=== PATIENT | female | born 1940 ===

== ENCOUNTER 2019-10-30 05:12 | Emergency (ER) | payer OTHER ==
--- OUTSIDE RECORDS SUMMARY | 2019-10-30 05:13 | XMS REPORT ---
:1940 Author Organization [facility] t Address [address] Singh [address] [place] [id number] Care Team Providers Name Role Phone Unavailable Unavailable Unavailable Problems This patient has no known problems. Allergies, Adverse Reactions, Alerts This patient has no known allergies or adverse reactions. Medications This patient has no known medications.
[2019-10-30 05:58] LABS: Basophils % 0.7 % (0-1.3); Lymphocytes % 19.4 % (15.3-44.8); MPV 9.1 fL (7.6-11.3); RBC Red Blood Cell Count 3.18 M/uL (3.86-4.86)
[2019-10-30] MEDS ORDERED: ALTEPLASE 100 ML IV ONE (06:03)
[2019-10-30] MEDS ORDERED: NA CHLORIDE 0.9% 50 ML IV ONE (06:03)
[2019-10-30 06:11] LABS: Protime INR 1.29
--- NOTE | 2019-10-30 06:14 | ER ---
Nurse's Notes [facility] Name: Ivis Lee Age: 79 yrs Sex: Female : 1940 Arrival Date: 10/30/2019 Time: 05:13 Bed 20 Private MD: Diagnosis: Cerebral infarction;Aphasia;Aphasia following cerebral infarction;Atrial fibrillation and flutter;Dementia in other diseases classified elsewhere;Anemia, unspecified;Hypothyroidism, unspecified Presentation: 10/29 05:13 Chief complaint: EMS states: they were called out for unwitnessed fall and right facial mg2 droop. the nurse at the [facility] found her on the floor \T\ 0400 while doing her rounds. she was seen normal \T\ 0300. Her EKG was Afib RVR 140 HR. Coronavirus screen: Proceed with normal triage. Patient denies a cough. Patient denies shortness of breath or difficulty breathing. Patient denies measured and/or subjective temperature greater than 100.4F prior to today's visit. Patient denies travel on a cruise ship or to a country the [facility] currently lists as an affected area. Patient denies contact with known and/or suspected case of COVID-19. Ebola Screen: No symptoms or risks identified at this time. An acute neurological deficit is present. Initial Sepsis Screen: Does the patient meet any 2 criteria? Does the patient have a suspected source of infection? No. Patient's initial sepsis screen is negative. Risk Assessment: Do you want to hurt yourself or someone else? Patient reports no desire to harm self or others. Onset of symptoms was October 30, 2019 at 04:00. 05:13 Method Of Arrival: EMS: [facility] mg2 05:13 Acuity: JORGE A 2 mg2 Triage Assessment: 06:30 General: Appears in no apparent distress. comfortable, Behavior is calm, cooperative. mg2 Pain: Denies pain. 06:46 The onset of the patients symptoms was October 30, 2019 at 03:00. Neuro: Reports pt bb unable to report. Stroke Activation: Symptom onset < 3 hours Physician: Stroke Attending; Name: ; Notified At: ; Arrived At: Physician: Chief Stroke Resident; Name: ; Notified At: ; Arrived At: Physician: Stroke Resident; Name: ; Notified At: ; Arrived At: Physician: ED Attending; Name: ; Notified At: ; Arrived At: Physician: ED Resident; Name: ; Notified At: ; Arrived At: Historical: - Allergies: 05:55 Codeine; rr5 - Home Meds: 05:55 Aspirin Oral [Active]; Depakote Oral [Active]; galantamine oral oral [Active]; rr5 ipratropium-albuterol inhalation Inhl [Active]; levothyroxine oral [Active]; Myrbetriq oral oral [Active]; Symbicort inhalation inhalation [Active]; - PMHx: 05:55 Dementia; Alzheimers; Hypothyroidism; frequency of micturition; iron deficiency; rr5 disorder of adrenal gland; polyphagia; COPD; - Immunization history:: Flu vaccine is up to date. - Family history:: not pertinent. - Social history:: Smoking status: . Screenin:53 Abuse screen: Denies threats or abuse. Denies injuries from another. Nutritional mg2 screening: No deficits noted. Tuberculosis screening: No symptoms or risk factors identified. Fall Risk IV access (20 points). 06:00 The patient failed the bedside swallow screening. The patient will be kept NPO until bb cleared by Speech Therapy or Physician. Provider notified of bedside swallow screening results: Winston Dove MD. Assessment: 05:15 VAN Scoring: Arm Drift: Minor drift Visual Disturbance: No visual disturbance noted. mg2 Aphasia: Expressive aphasia noted. Provider notified of +VAN scoring. Neglect: Patient is noted to be ignoring one of side of their body. Provider notified of +VAN scoring. left side of the body. 05:15 Reassessment: code stroke called. mg2 05:17 Reassessment: patient sent to ct scan. mg2 05:30 General: Appears in no apparent distress. comfortable, Behavior is calm, cooperative. mg2 Pain: Denies pain. Neuro: Level of Consciousness is awake, alert, Oriented to n/a - history of Alzheimers. Cardiovascular: Capillary refill < 3 seconds Patient's skin is warm and dry. Rhythm is atrial fibrillation with rapid ventricular response. Respiratory: Airway is patent Respiratory effort is even, unlabored, Respiratory pattern is regular, symmetrical. GI: No signs and/or symptoms were reported involving the gastrointestinal system. : No signs and/or symptoms were reported regarding the genitourinary system. EENT: No signs and/or symptoms were reported regarding the EENT system. Derm: Skin is intact, is healthy with good turgor. Musculoskeletal: Circulation, motion, and sensation intact. Capillary refill < 3 seconds. 05:54 Reassessment: notified pt's son Maykel John [phone] of pt's condition and discussed bb administration of TPA for suspected stroke with discussion of possible side effects of TPA including increased bleeding, with the possibility of . Maykel John gave verbalized understanding of the risks and hazards discussed and gave verbal permission to administer TPA to patient. Consent form signed and initialed by this RN. 06:02 Reassessment: CXR done at bedside. mg2 06:03 T-PA (Activase) Screening: Indications: Definite evidence of stroke, ischemic, embolic, bb or hypertensive: Yes. Treatment will start within 4.5 hours onset of symptoms: Yes. No evidence of intracranial hemorrhage or CT of head and no evidence of peripheral hemorrhage or recent CVA: Yes. Consent for thrombolytic therapy: Yes. 06:10 The patient has not been NPO before screening. The patient is alert, and able to follow mg2 commands. The patient exhibits slurred or garbled speech. Provider notified of the indication for Speech Therapy consult. The patient is exhibiting difficulty speaking. pt has past hx of CVA with dysphagia The patient is able to swallow own secretions with no drooling or need for suction. pt failed due to dysphagia pt failed due to dysphagia The patient failed the bedside swallow screening. The patient will be kept NPO until cleared by Speech Therapy or Physician. Provider notified of bedside swallow screening results: Winston Dove MD. 06:20 Reassessment: left side weakness improved. Patient states symptoms have improved. mg2 06:41 Reassessment: instructed pt's son Maykel John via telephone conversation of pt's transfer bb to [facility] he verbalized understanding of and agrees to plan of care. 06:42 Reassessment: pt resting quietly, resp unlabored, IV site intact, patent, TPA infusing, bb [facility] at bedside for transport of pt to [facility]. 07:41 Reassessment: patient transferred to [facility] with IV on, patient in good condition, mg2 neurodeficits improved. Vital Signs: 05:13 BP 124 / 86; Resp 18; Temp 98.5; mg2 05:54 BP 124 / 86; Pulse 130; Resp 18; Pulse Ox 100% on R/A; mg2 06:00 Weight 51.4 kg; mg2 06:10 BP 110 / 63; Pulse 124; Resp 19 S; Pulse Ox 98% on R/A; bb 06:15 BP 109 / 78; Pulse 127; Resp 18 S; Pulse Ox 96% on R/A; bb 06:30 BP 91 / 76; Pulse 127; Resp 20 S; Pulse Ox 94% on R/A; bb 06:39 BP 107 / 66; Pulse 116; Resp 20 S; Pulse Ox 95% on R/A; bb 06:56 BP 116 / 76; Pulse 126; Resp 20 S; Temp 97.1(TE); Pulse Ox 97% on R/A; bb 07:05 BP 126 / 70; Pulse 103; Resp 18; Temp 97.1; Pulse Ox 96% on R/A; mg2 NIH Stroke Scale Scores: 06:45 NIHSS Score: 5 ruth 10/30 04:52 NIHSS Score: 7 mg2 ED Course: 10/29 05:13 Patient arrived in ED. ds1 05:14 Winston Dove MD is Attending Physician. ruth 05:40 Ct Stroke Brain Wo Cont In Process Unspecified. EDMS 05:46 Ady Rogers, WINSOME is Primary Nurse. mg2 05:48 Initial lab(s) drawn, by laborer fryer farm, sent to lab. mg2 05:50 EKG done, by technology applications engineer. reviewed by Winston Dove MD. mg2 05:53 Triage completed. mg2 05:53 Arm band placed on. mg2 05:54 No provider procedures requiring assistance completed. Maintain EMS IV. Dressing mg2 intact. Good blood return noted. Site clean \T\ dry. Gauge \T\ site: 20 \T\ LAC. 06:02 XRAY Chest (1 view) In Process Unspecified. EDMS 07:21 Patient has correct armband on for positive identification. mg2 07:21 Patient transferred, IV remains in place. mg2 Administered Medications: 06:09 Drug: ACTIvase {Co-Signature: rr5 (Abdon Tejeda RN).} Route: IV Thrombolytics; Rate: mg2 calculated rate; Infused Over: 60 mins; 07:18 Follow up: Response: No adverse reaction mg2 06:45 Drug: Pepcid 20 mg Route: IVP; Site: left antecubital; mg2 07:19 Follow up: Response: No adverse reaction mg2 06:50 Drug: NS 0.9% 500 ml Route: IV; Rate: bolus; Site: left antecubital; mg2 07:20 Follow up: Response: No adverse reaction; IV Status: Completed infusion; IV Intake: mg2 500ml 06:50 Drug: Digoxin 0.25 mg Route: IVP; Site: left antecubital; mg2 07:18 Follow up: Response: No adverse reaction mg2 06:55 Drug: foLIC Acid 1 mg Route: IVPB; Site: left antecubital; mg2 07:20 Follow up: Response: No adverse reaction; IV Status: Completed infusion mg2 06:55 Drug: Lopressor 2.5 mg Route: IVP; Site: left antecubital; mg2 07:19 Follow up: Response: No adverse reaction mg2 07:00 Drug: Lopressor 2.5 mg Route: IVP; Site: left antecubital; mg2 07:19 Follow up: Response: No adverse reaction mg2 07:17 Not Given (Physician Discretion): NS 0.9% 1000 ml IV at 125 ml/hr continuous mg2 Point of Care Testing: Blood Glucose: 06:04 Blood Glucose: 73 mg/dL; mg2 Ranges: Intake: 07:20 IV: 500ml; Total: 500ml. mg2 Outcome: 06:13 ER care complete, transfer ordered by . ruth 07:22 Transferred by ground EMS to [facility], Transfer form completed. mg2 07:22 Condition: stable 07:22 Instructed on the need for transfer, Demonstrated understanding of instructions. 07:41 Patient left the ED. rr5 NIH Stroke Scale - NIH Stroke Score Date: 10/30/2019 Time: 06:45 Total Score = 5 1a. Level of Consciousness (LOC) - 0(Alert) 1b. Level of Consciousness (LOC) (Year \T\ Age) - 0(Both) 1c. LOC Commands (Open \T\ Closes Eyes/Civil Transportation Engineer) - 0(Both) 2. Best Gaze (Lateral Gaze Paresis) - 0(Normal) 3. Visual Field Loss - 0(No visual loss) 4. Facial Palsy - 2(Partial paralysis) 5a. Left Arm: Motor (10-second hold) - 0(No drift) 5b. Right Arm: Motor (10-second hold) - 0(No drift) 6a. Left Leg: Motor (5-second hold - always test supine) - 0(No drift) 6b. Right Leg: Motor (5-second hold - always test supine) - 0(No drift) 7. Limb Ataxia (finger/nose \T\ heel/quiroz - test with eyes open) - 1(Present in one limb) 8. Sensory Loss (pinprick arms/legs/face) - 0(Normal) 9. Best Language: Aphasia (description/naming/reading) - 1(Mild to moderate aphasia) 10. Dysarthria (speech clarity - read or repeat words) - 1(Mild to Moderate) 11. Extinction and Inattention (visual/tactile/auditory/spatial/personal) - 0(No abnormality) Initials: ruth NIH Stroke Scale - NIH Stroke Score Date: 10/31/2019 Time: 04:52 Total Score = 7 1a. Level of Consciousness (LOC) - 0(Alert) 1b. Level of Consciousness (LOC) (Year \T\ Age) - 0(Both) 1c. LOC Commands (Open \T\ Closes Eyes/Civil Transportation Engineer) - 0(Both) 2. Best Gaze (Lateral Gaze Paresis) - 0(Normal) 3. Visual Field Loss - 0(No visual loss) 4. Facial Palsy - 2(Partial paralysis) 5a. Left Arm: Motor (10-second hold) - 1(Drift) 5b. Right Arm: Motor (10-second hold) - 0(No drift) 6a. Left Leg: Motor (5-second hold - always test supine) - 1(Drift) 6b. Right Leg: Motor (5-second hold - always test supine) - 0(No drift) 7. Limb Ataxia (finger/nose \T\ heel/quiroz - test with eyes open) - 1(Present in one limb) 8. Sensory Loss (pinprick arms/legs/face) - 1(Mild to moderate loss) 9. Best Language: Aphasia (description/naming/reading) - 0(No aphasia) 10. Dysarthria (speech clarity - read or repeat words) - 1(Mild to Moderate) 11. Extinction and Inattention (visual/tactile/auditory/spatial/personal) - 0(No abnormality) Initials: mg2 Signatures: Dispatcher [employer] Winston Friedman MD MD cha Sanford, Demi ds1 Patience Ambriz RN RN bb Ady Rogers RN RN mg2 Abdon Tejeda RN RN rr5 Abdon Tejeda RN rr5 Corrections: (The following items were deleted from the chart) 07:30 07:22 VAN Scoring: Arm Drift: Minor drift mg2 [facility] 10/30 04:18 10/29 06:44 The patient has not been NPO before screening. The patient is mg2 alert, and able to follow commands. The patient exhibits slurred or garbled speech. Provider notified of the indication for Speech Therapy consult. The patient is exhibiting difficulty speaking. pt has past hx of CVA with dysphagia The patient is able to swallow own secretions with no drooling or need for suction. pt failed due to dysphagia pt failed due to dysphagia The patient failed the bedside swallow screening. The patient will be kept NPO until cleared by Speech Therapy or Physician. bb 10/30 04:18 10/29 06:44 Provider notified of bedside swallow screening results: Winston Dove MD rr5 10/30 04:26 10/29 05:55 VAN Scoring: Arm Drift: Minor drift Visual Disturbance: No visual mg2 disturbance noted. Aphasia: Expressive aphasia noted. Provider notified of +VAN scoring. Neglect: Patient is noted to be ignoring one of side of their body. Provider notified of +VAN scoring. left side of the body rr5 10/30 04:38 10/29 07:42 Reassessment: patient transferred to [facility] with IV on, patient mg2 in good condition, neurodeficits improved. mg2 10/30 04:52 10/29 07:22 NIHSS Score: 9 mg2 mg2 10/30 04:52 10/29 06:00 NIHSS Score: 8 mg2 mg2 10/30 04:52 10/29 05:30 NIHSS Score: 8 mg2 mg2
--- NOTE | 2019-10-30 06:14 | EDPHYS ---
Physician Documentation [facility] Name: Ivis Lee Age: 79 yrs Sex: Female : 1940 Arrival Date: 10/30/2019 Time: 05:13 Bed 20 Private MD: KACEY Physician Winston Dove HPI: 10/29 05:55 This 79 yrs old Unknown Female presents to ER via EMS with complaints of Facial Droop. [facility] 05:55 The patient presents to the emergency department with weakness of the right side of the ruth face, that is moderate, a speech or higher order brain function problem, aphasia, difficulty standing, the patient cannot stand, difficult walking, the patient cannot walk. Onset: The symptoms/episode began/occurred at 03:00. Context: occurred at a senior care or assisted living facility, occurred while the patient was at rest. Associated signs and symptoms: Pertinent positives: dizziness. Severity of symptoms: At their worst the symptoms were mild in the emergency department the symptoms are unchanged. Patient's baseline: Neuro: alert and fully oriented. Current symptoms: Currently, the patient is not experiencing any symptoms. The patient has not experienced similar symptoms in the past. Historical: - Allergies: 05:55 Codeine; rr5 - Home Meds: 05:55 Aspirin Oral [Active]; Depakote Oral [Active]; galantamine oral oral [Active]; rr5 ipratropium-albuterol inhalation Inhl [Active]; levothyroxine oral [Active]; Myrbetriq oral oral [Active]; Symbicort inhalation inhalation [Active]; - PMHx: 05:55 Dementia; Alzheimers; Hypothyroidism; frequency of micturition; iron deficiency; rr5 disorder of adrenal gland; polyphagia; COPD; - Immunization history:: Flu vaccine is up to date. - Family history:: not pertinent. - Social history:: Smoking status: . ROS: 05:55 Constitutional: Negative for fever, chills, and weight loss, Eyes: Negative for injury, ruth pain, redness, and discharge, ENT: Negative for injury, pain, and discharge, Neck: Negative for injury, pain, and swelling, Respiratory: Negative for shortness of breath, cough, wheezing, and pleuritic chest pain, Abdomen/GI: Negative for abdominal pain, nausea, vomiting, diarrhea, and constipation, Back: Negative for injury and pain, : Negative for injury, bleeding, discharge, and swelling, MS/Extremity: Negative for injury and deformity, Skin: Negative for injury, rash, and discoloration, Psych: Negative for depression, anxiety, suicide ideation, homicidal ideation, and hallucinations, Allergy/Immunology: Negative for hives, rash, and allergies, Endocrine: Negative for neck swelling, polydipsia, polyuria, polyphagia, and marked weight changes, Hematologic/Lymphatic: Negative for swollen nodes, abnormal bleeding, and unusual bruising. 05:55 Cardiovascular: Positive for palpitations. 05:55 Neuro: Positive for speech changes, weakness, of the right cheek and right jaw. Exam: 06:03 Constitutional: This is a well developed, well nourished patient who is awake, alert, ruth and in no acute distress. Eyes: Pupils equal round and reactive to light, extra-ocular motions intact. Lids and lashes normal. Conjunctiva and sclera are non-icteric and not injected. Cornea within normal limits. Periorbital areas with no swelling, redness, or edema. ENT: Nares patent. No nasal discharge, no septal abnormalities noted. Tympanic membranes are normal and external auditory canals are clear. Oropharynx with no redness, swelling, or masses, exudates, or evidence of obstruction, uvula midline. Mucous membranes moist. Neck: Trachea midline, no thyromegaly or masses palpated, and no cervical lymphadenopathy. Supple, full range of motion without nuchal rigidity, or vertebral point tenderness. No Meningismus. Chest/axilla: Normal chest wall appearance and motion. Nontender with no deformity. No lesions are appreciated. Respiratory: Lungs have equal breath sounds bilaterally, clear to auscultation and percussion. No rales, rhonchi or wheezes noted. No increased work of breathing, no retractions or nasal flaring. Abdomen/GI: Soft, non-tender, with normal bowel sounds. No distension or tympany. No guarding or rebound. No evidence of tenderness throughout. Back: No spinal tenderness. No costovertebral tenderness. Full range of motion. Female : Normal external genitalia. Skin: Warm, dry with normal turgor. Normal color with no rashes, no lesions, and no evidence of cellulitis. MS/ Extremity: Pulses equal, no cyanosis. Neurovascular intact. Full, normal range of motion. Neuro: Awake and alert, GCS 15, oriented to person, place, time, and situation. Cranial nerves II-XII grossly intact. Motor strength 5/5 in all extremities. Sensory grossly intact. Cerebellar exam normal. Normal gait. Psych: Awake, alert, with orientation to person, place and time. Behavior, mood, and affect are within normal limits. 06:03 Head/face: Noted is right facial weakness, forehead sparred. 06:03 Cardiovascular: Rate: tachycardic, Rhythm: irregularly irregular, Pulses: Pulses are 4+ in bilateral radial, brachial, femoral, popliteal, posterior tibial and and dorsalis pedis arteries.. Heart sounds: normal, Edema: is not appreciated, JVD: is not appreciated. 06:45 ECG was reviewed by the Attending Physician. [facility] Vital Signs: 05:13 BP 124 / 86; Resp 18; Temp 98.5; mg2 05:54 BP 124 / 86; Pulse 130; Resp 18; Pulse Ox 100% on R/A; mg2 06:00 Weight 51.4 kg; mg2 06:10 BP 110 / 63; Pulse 124; Resp 19 S; Pulse Ox 98% on R/A; bb 06:15 BP 109 / 78; Pulse 127; Resp 18 S; Pulse Ox 96% on R/A; bb 06:30 BP 91 / 76; Pulse 127; Resp 20 S; Pulse Ox 94% on R/A; bb 06:39 BP 107 / 66; Pulse 116; Resp 20 S; Pulse Ox 95% on R/A; bb 06:56 BP 116 / 76; Pulse 126; Resp 20 S; Temp 97.1(TE); Pulse Ox 97% on R/A; bb 07:05 BP 126 / 70; Pulse 103; Resp 18; Temp 97.1; Pulse Ox 96% on R/A; mg2 NIH Stroke Scale Scores: 06:45 NIHSS Score: 5 ruth 10/30 04:52 NIHSS Score: 7 mg2 MDM: 10/29 05:14 Patient medically screened. ruth 06:03 Data reviewed: vital signs, nurses notes, lab test result(s), EKG, radiologic studies, ruth CT scan, plain films. 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 Test interpretation: by ED physician or midlevel provider: ECG, plain radiologic studies. ED course: pt last nl at 300 am, on floor at 4am, right face weakness, both right and left sides weak and patient is aphasic, dw dr Youssef ct neg and AFib RVR his thoughts were yes tPA, call to [facility] dr ibarra agrees tPA, will accept pt. dw son and he want tPA if no contraindication, explained risk. 06:50 Physician consultation:. [facility] 07:11 Counseling: I had a detailed discussion with the patient and/or guardian regarding: the [facility] historical points, exam findings, and any diagnostic results supporting the discharge/admit diagnosis, lab results, radiology results, the need to transfer to another facility, for higher level of care, [facility] does not immediately have the required specialist. Response to treatment: the patient's symptoms have mildly improved after treatment. 10/29 05:48 Order name: Basic Metabolic Panel [facility] 10/29 05:48 Order name: CBC with Diff; Complete Time: 06:24 [facility] 10/29 06:37 Interpretation: Abnormal. [facility] 10/29 05:48 Order name: LFT's [facility] 10/29 05:48 Order name: Magnesium [facility] 10/29 05:48 Order name: NT PRO-BNP [facility] 10/29 05:48 Order name: PT-INR; Complete Time: 06:24 [facility] 10/29 05:32 Order name: Ct Stroke Brain Wo Cont [facility] 10/29 05:48 Order name: Troponin (emerg Dept Use Only) [facility] 10/29 05:48 Order name: XRAY Chest (1 view) [facility] 10/29 05:50 Order name: TSH [facility] 10/29 06:04 Order name: Glucose, Ancillary Testing; Complete Time: 06:24 [facility] 10/29 06:50 Order name: T4 Free [facility] 10/29 05:48 Order name: EKG; Complete Time: 05:50 [facility] 10/29 05:48 Order name: Cardiac monitoring; Complete Time: 07:17 [facility] 10/29 05:48 Order name: EKG - Nurse/Tech; Complete Time: 07:17 ruth 10/29 05:48 Order name: IV Saline Lock; Complete Time: 07:17 ruth 10/29 05:48 Order name: Labs collected and sent; Complete Time: 07:17 [facility] 10/29 05:48 Order name: O2 Per Protocol; Complete Time: [facility] 10/29 05:48 Order name: O2 Sat Monitoring; Complete Time: : [facility] EC:45 Rate is 126 beats/min. Rhythm is irregularly irregular. QRS [place] is Normal. VT interval ruth is normal. QRS interval is normal. QT interval is normal. No Q waves. T waves are Normal. No ST changes noted. Clinical impression: Atrial Fibrillation. Interpreted by me. Reviewed by me. Administered Medications: 06:09 Drug: ACTIvase {Co-Signature: rr5 (Abdon Tejeda RN).} Route: IV Thrombolytics; Rate: mg2 calculated rate; Infused Over: 60 mins; 07:18 Follow up: Response: No adverse reaction mg2 06:45 Drug: Pepcid 20 mg Route: IVP; Site: left antecubital; mg2 07:19 Follow up: Response: No adverse reaction mg2 06:50 Drug: NS 0.9% 500 ml Route: IV; Rate: bolus; Site: left antecubital; mg2 07:20 Follow up: Response: No adverse reaction; IV Status: Completed infusion; IV Intake: mg2 500ml 06:50 Drug: Digoxin 0.25 mg Route: IVP; Site: left antecubital; mg2 07:18 Follow up: Response: No adverse reaction mg2 06:55 Drug: foLIC Acid 1 mg Route: IVPB; Site: left antecubital; mg2 07:20 Follow up: Response: No adverse reaction; IV Status: Completed infusion mg2 06:55 Drug: Lopressor 2.5 mg Route: IVP; Site: left antecubital; mg2 07:19 Follow up: Response: No adverse reaction mg2 07:00 Drug: Lopressor 2.5 mg Route: IVP; Site: left antecubital; mg2 07:19 Follow up: Response: No adverse reaction mg2 07:17 Not Given (Physician Discretion): NS 0.9% 1000 ml IV at 125 ml/hr continuous mg2 Point of Care Testing: Blood Glucose: 06:04 Blood Glucose: 73 mg/dL; mg2 Ranges: Critical Glucose Levels:Adult <50 mg/dl or >400 mg/dl <40 mg/dl or >180 mg/dl Disposition: 10/30/19 06:13 Transfer ordered to [facility]. Diagnosis are Cerebral infarction, Aphasia, Aphasia following cerebral infarction, Atrial fibrillation and flutter, Dementia in other diseases classified elsewhere, Anemia, unspecified, Hypothyroidism, unspecified. - Reason for transfer: Higher level of care. - Accepting physician is to [facility] , [facility] dr ibarra. - Condition is Serious. - Problem is new. - Symptoms are unchanged. Critical care time excluding procedures: 07:07 Critical care time: Bedside Care: 20 minutes, Consultation: 15 minutes, Family ruth Intervention: 10 minutes. Total time: 45 minutes NIH Stroke Scale - NIH Stroke Score Date: 10/30/2019 Time: 06:45 Total Score = 5 1a. Level of Consciousness (LOC) - 0(Alert) 1b. Level of Consciousness (LOC) (Year \T\ Age) - 0(Both) 1c. LOC Commands (Open \T\ Closes Eyes/Tire Fabricator) - 0(Both) 2. Best Gaze (Lateral Gaze Paresis) - 0(Normal) 3. Visual Field Loss - 0(No visual loss) 4. Facial Palsy - 2(Partial paralysis) 5a. Left Arm: Motor (10-second hold) - 0(No drift) 5b. Right Arm: Motor (10-second hold) - 0(No drift) 6a. Left Leg: Motor (5-second hold - always test supine) - 0(No drift) 6b. Right Leg: Motor (5-second hold - always test supine) - 0(No drift) 7. Limb Ataxia (finger/nose \T\ heel/quiroz - test with eyes open) - 1(Present in one limb) 8. Sensory Loss (pinprick arms/legs/face) - 0(Normal) 9. Best Language: Aphasia (description/naming/reading) - 1(Mild to moderate aphasia) 10. Dysarthria (speech clarity - read or repeat words) - 1(Mild to Moderate) 11. Extinction and Inattention (visual/tactile/auditory/spatial/personal) - 0(No abnormality) Initials: ruth NIH Stroke Scale - NIH Stroke Score Date: 10/31/2019 Time: 04:52 Total Score = 7 1a. Level of Consciousness (LOC) - 0(Alert) 1b. Level of Consciousness (LOC) (Year \T\ Age) - 0(Both) 1c. LOC Commands (Open \T\ Closes Eyes/Tire Fabricator) - 0(Both) 2. Best Gaze (Lateral Gaze Paresis) - 0(Normal) 3. Visual Field Loss - 0(No visual loss) 4. Facial Palsy - 2(Partial paralysis) 5a. Left Arm: Motor (10-second hold) - 1(Drift) 5b. Right Arm: Motor (10-second hold) - 0(No drift) 6a. Left Leg: Motor (5-second hold - always test supine) - 1(Drift) 6b. Right Leg: Motor (5-second hold - always test supine) - 0(No drift) 7. Limb Ataxia (finger/nose \T\ heel/quiroz - test with eyes open) - 1(Present in one limb) 8. Sensory Loss (pinprick arms/legs/face) - 1(Mild to moderate loss) 9. Best Language: Aphasia (description/naming/reading) - 0(No aphasia) 10. Dysarthria (speech clarity - read or repeat words) - 1(Mild to Moderate) 11. Extinction and Inattention (visual/tactile/auditory/spatial/personal) - 0(No abnormality) Initials: mg2 Signatures: Dispatcher [employer] Winston Friedman MD MD cha Gardose, Michele, RN RN mg2 Abdon Tejeda RN RN rr5 Abdon Tejeda RN rr5 Corrections: (The following items were deleted from the chart) 06:37 06:13 10/30/2019 06:13 Transfer ordered to [facility]. Diagnosis is Cerebral infarction; Aphasia; Aphasia following cerebral infarction; Atrial fibrillation and flutter; Dementia in other diseases classified elsewhere. Reason for transfer: Higher level of care. Accepting physician is to [facility] dr ibarra. Condition is Serious. Problem is new. Symptoms are unchanged. [facility] 06:50 06:37 10/30/2019 06:13 Transfer ordered to [facility]. Diagnosis is Cerebral infarction; Aphasia; Aphasia following cerebral infarction; Atrial fibrillation and flutter; Dementia in other diseases classified elsewhere; Anemia, unspecified. Reason for transfer: Higher level of care. Accepting physician is to [facility] , [facility] dr ibarra. Condition is Serious. Problem is new. Symptoms are unchanged. [facility] 07:41 06:50 10/30/2019 06:13 Transfer ordered to [address] Diagnosis is Cerebral infarction; Aphasia; Aphasia following cerebral infarction; Atrial fibrillation and flutter; Dementia in other diseases classified elsewhere; Anemia, unspecified; Hypothyroidism, unspecified. Reason for transfer: Higher level of care. Accepting physician is to [facility] ibarra. Condition is Serious. Problem is new. Symptoms are unchanged. ruth
[2019-10-30 06:28] LABS: ALT/SGPT 10 U/L (12-78); AST/SGOT 10 U/L (15-37); Albumin 2.2 g/dL (3.4-5.0); Alkaline Phosphatase 45 U/L (45-117); BUN Blood Urea Nitrogen 30 mg/dL (7-18); Bicarbonate 25 mmol/L (21-32); Bilirubin Direct < 0.1 mg/dL (0-0.2); Bilirubin Total 0.3 mg/dL (0.2-1.0); Glucose Level 88 mg/dL (74-106); Magnesium 2.1 mg/dL (1.8-2.4); NT PRO-BNP 9851 pg/mL (<450); Potassium 4.7 mmol/L (3.5-5.1); Protein, Total 8.5 g/dL (6.4-8.2); Sodium Level 139 mmol/L (136-145); Troponin (Emerg Dept Use Only) < 0.02 ng/mL (0.0-0.045)
[2019-10-30] MEDS ORDERED: DIGOXIN 0.25 MG/ML AMP ONE (06:52)
[2019-10-30] MEDS ORDERED: NA CHLORIDE 0.9% 500 ML ONE (06:53)
[2019-10-30] MEDS ORDERED: METOPROLOL TARTRATE 5 MG/5 ML INJ IV ONE (06:53)
[2019-10-30] MEDS ORDERED: FAMOTIDINE 20 MG/2 ML VIAL IV ONE (06:53)
[2019-10-30] MEDS ORDERED: FOLIC ACID 5 MG/ML VIAL ONE (06:56)
[2019-10-30 08:06] VITALS: TEMP 97.1
[2019-10-30 08:08] VITALS: BP 126/70; O2SAT 96
--- NOTE | 2019-10-30 08:29 | RAD REPORT ---
EXAM DESCRIPTION: RAD - Chest Single View - 10/30/2019 6:02 am CLINICAL HISTORY: COUGH, fall COMPARISON: None TECHNIQUE: AP portable chest image was obtained 10/30/2019 6:02 am . FINDINGS: No focal mass or consolidation. Interstitial markings are prominent on this baseline study . Minimal alveolar opacities are present. Heart size is upper normal. Vasculature within normal limit s. No measurable pleural effusion and no pneumothorax. No acute bony abnormality seen. No acute aorti c findings suspected. IMPRESSION: No focal mass or consolidations seen. Increased interstitial opacification present. This is a baseline study therefore interstitial edema o r viral infiltrates are not excluded. Follow-up imaging could be obtained if the patient symptoms may be related to infectious process.
--- NOTE | 2019-10-30 12:36 | RAD REPORT ---
EXAM DESCRIPTION: CT - Ct Stroke Brain Wo Cont - 10/30/2019 6:31 am CLINICAL HISTORY: LEFT SIDED FACIAL DROOP TECHNIQUE: Multiple axial CT images of the brain were performed followed by sagittal and coronal rec onstructed images. The CT study is performed according to ALARA (as low as reasonably achievable) or ALARA/IMAGE GENTLY, with automatic adjustment of mA and/or kV according to patient size. Performed on: 10/30/2019 at 5:30 AM COMPARISON: None. FINDINGS: There is no evidence of mass, acute mass effect or midline shift. There are no acute extra-axial flui d collections. There is no evidence of acute intracranial hemorrhage. There is no evidence of a hyp erdense MCA. The cerebral sulci and ventricles are prominent consistent with moderate cerebral volume loss. There are scattered areas of decreased attenuation within the subcortical and periventricular white m atter most consistent with chronic moderate microangiopathy. There is right frontal lobe encephalomal acia consistent with an old infarct. There is no significant mucosal thickening of the paranasal sinuses. The mastoid air cells are clear. The orbital contents are grossly unremarkable. No acute osseous abnormalities are identified. No focal soft tissue abnormalities are identified. IMPRESSION: 1. There is no evidence of acute intracranial pathology. 2. Moderate cerebral atrophy with findings compatible with chronic microangiopathy and old right fron alan lobe infarct. These critical findings were discussed with Dr. Dove on 10/30/2019 at 5:52 AM central time Electronically signed by: Mily Quinonez DO 10/30/2019 5:53 AM CDT Due to temporary technical issues with the PACS/Fluency reporting system, reports are being signed by the in house radiologist as a courtesy to ensure prompt reporting. The interpreting radiologist is f ully responsible for the content of the report.
--- NOTE | 2019-10-31 06:49 | EKG ---
Test Date: 2019-10-30 Test Time: 05:50:31 Coffee Maker: MAGGIE MEASUREMENT RESULTS: Intervals: Rate: 126 ID: QRSD: [id number] QT: 332 QTc: 480 [place]: P: ID: QRS: [id number] T: -66 INTERPRETIVE STATEMENTS: Atrial fibrillation with rapid ventricular response Septal infarct, age undetermined Abnormal ECG No previous ECG available for comparison Electronically Signed On 10-31-19 06:48:38 CDT by Amos Rouse
== END 2019-10-30 07:41 | disposition short-term general hospital (02) ==
LOC: ER 05:12
DX: I63.9 Cerebral infarction, unspecified (principal); R47.01 Aphasia; I69.320 Aphasia following cerebral infarction; R29.705 NIHSS score 5; E03.9 Hypothyroidism, unspecified; D64.9 Anemia, unspecified; I48.91 Unspecified atrial fibrillation; I48.92 Unspecified atrial flutter; G30.9 Alzheimer's disease, unspecified; F02.80 Dementia in other diseases classified elsewhere, unspecified severity, without behavioral disturbance, psychotic disturbance, mood disturbance, and anxiety; Z79.82 Long term (current) use of aspirin; Z88.5 Allergy status to narcotic agent
CPT/HCPCS: 96365; 92977; 93005; 85025; 80048; 36415; 83735; 85610; 82947; 80076; 84443; 84484; 84439; 83880; 70450; 71045; 96375; 99285; J2997; J1160; J7040

== ENCOUNTER 2019-12-26 19:58 | Inpatient (IN) | payer OTHER ==
--- OUTSIDE RECORDS SUMMARY | 2019-12-26 20:01 | XMS REPORT | Clinical Summary ---
:1940 Author Organization [facility] Address [address] [place] [address] Care Team Providers Name Role Phone Tay Napoleon Primary Care Provider Allergies No Known Allergies Medications Medication Sig Dispensed Refills Start Date End Date Status levothyroxine Take 75 mcg by 0 A ctive (SYNTHROID, mouth Every LEVOTHROID) 75 MCG morning on an tablet empty stomach. divalproex Take 250 mg by 0 Acti ve (DEPAKOTE) 250 MG EC mouth 3 (three) tablet times daily. galantamine Take 12 mg by 0 Acti ve (RAZADYNE) 12 MG mouth 2 (two) tablet times daily. ipratropium-albutero Take 3 mLs by 0 Active L (DUO-NEB) 0.5 mg-3 nebulization every mg(2.5 mg base)/3 mL 6 (six) hours as nebulizer solution needed for Wheezing. budesonide-formotero Inhale 2 puffs by 0 Active L (SYMBICORT) mouth via inhaler 160-4.5 2 (two) times mcg/actuation daily. inhaler aspirin 81 MG EC Take 81 mg by 0 Active tablet mouth daily. mirabegron Take 25 mg by 0 06/14/2018 Acti ve (MYRBETRIQ) 25 mg mouth nightly. Tb24 ER tablet apixaban (ELIQUIS) Take 1 tablet (2.5 60 tablet 0 11/04/2019 0 12/04/2019 2.5 mg Tab tablet mg total) by mouth 2 (two) times daily for 30 days. atorvastatin Take 1 tablet (80 30 tablet 0 11/04/2019 12/04/19 20 (LIPITOR) 80 MG mg total) by mouth tablet nightly for 30 days. carvediloL (COREG) Take 1 tablet 60 tablet 0 11/04/20192019 6.25 MG tablet (6.25 mg total) by mouth 2 (two) times daily for 30 days. lisinopriL Take 1 tablet (2.5 30 tablet 0 11/05/2019 0 (PRINIVIL,ZESTRIL) mg total) by mouth 2.5 MG tablet daily for 30 days. Active Problems Problem Noted Date Acute ischemic stroke 10/31/2019 Essential hypertension 10/31/2019 Alzheimer disease 10/31/2019 Hypothyroid 10/31/2019 Hypertensive emergency 10/31/2019 Encounters Date Type Specialty Care Team Description 10/31/2019 Orders Only General Internal Medicine 10/31/2019 Telephone Intensive Care Heather Torres RN 10/30/2019 - Hospital Encounter General Internal Araseli Harman MD Acute ischemic stroke (HCC) (Primary Dx) ; 11/05/2019 Medicine Darien Calvillo, Alzheimer's dementia without behavioral disturbance, unspecified timing of dementia onset (HCC); Essential hypertension; Jennifer Blanchard Persistent atri al fibrillation (HCC); MD Blayne Hypertensive emergency; Segundo, Hypothyroidism, unspecified type Subhash Lopez MD 10/30/2019 Travel after 12/25/2018 Social History Tobacco Use Types Packs/Day Years Used Date Never Smoker Smokeless Tobacco: Never Used Tobacco Cessation: Counseling Given: No Alcohol Use Drinks/Week oz/Week Comments No Alcohol Habits Answer Date Recorded How often do you have a drink containing alcohol? Never 10/31/2019 How many drinks containing alcohol do you have on a typical Not asked day when you are drinking? How often do you have six or more drinks on one occasion? No t asked Sex Assigned at Date Recorded Not on file Job Start Date Occupation Industry Not on file Not on file Not on file Travel History Travel Start Travel End No recent travel history available. Last Filed Vital Signs Vital Sign Reading Time Taken Blood Pressure 124/56 11/05/2019 11:07 AM CDT Pulse 84 11/05/2019 11:07 AM CDT Temperature 36.4 C (97.5 F) 11/05/2019 11:07 AM CDT Respiratory Rate 17 11/05/2019 11:07 AM CDT Oxygen Saturation 98% 11/05/2019 11:07 AM CDT Inhaled Oxygen Concentration 21% 11/04/2019 8:32 PM CDT Weight 50.8 kg (112 lb) 10/30/2019 8:34 AM CDT Height 165.1 cm (5' 5") 10/30/2019 8:34 AM CDT Body Mass Index 18.64 10/30/2019 8:34 AM CDT Plan of Treatment Not on file Procedures Procedure Name Priority Date/Time Associated Comments Diagnosis RHYTHM STRIP - SCAN 11/07/2019 12:30 PM CDT MAGNESIUM Routine 11/05/2019 3:22 Results for this AM CDT procedure are i n the results section. BASIC METABOLIC PANEL Routine 11/05/2019 3:22 Re sults for this (7) AM CDT procedure are i n the results section. ECHOCARDIOGRAM REPORT - 11/04/2019 9:20 SCAN PM CDT LIMITED 2D Routine 11/04/2019 1:48 Results for this ECHOCARDIOGRAM PM CDT procedure are in the results section. CBC W/PLT COUNT & AUTO Routine 11/04/2019 5:36 R esults for this DIFFERENTIAL AM CDT procedure are i n the results section. MAGNESIUM Routine 11/04/2019 5:36 Results for this AM CDT procedure are i n the results section. BASIC METABOLIC PANEL Routine 11/04/2019 5:36 Re sults for this (7) AM CDT procedure are i n the results section. CBC W/PLT COUNT & AUTO Routine 11/04/2019 5:36 R esults for this DIFFERENTIAL AM CDT procedure are i n the results section. CBC W/PLT COUNT & AUTO Routine 11/03/2019 5:16 R esults for this DIFFERENTIAL AM CDT procedure are i n the results section. MAGNESIUM Routine 11/03/2019 5:16 Results for this AM CDT procedure are i n the results section. BASIC METABOLIC PANEL Routine 11/03/2019 5:16 Re sults for this (7) AM CDT procedure are i n the results section. CBC W/PLT COUNT & AUTO Routine 11/03/2019 5:16 R esults for this DIFFERENTIAL AM CDT procedure are i n the results section. ECHOCARDIOGRAM REPORT - 11/02/2019 9:21 SCAN PM CDT REPORT OF PROCEDURE - 11/02/2019 12:32 ENDOSCOPY SCAN PM CDT TRANSESOPHAGEAL ECHO Routine 11/02/2019 11:26 Res ults for this AM CDT procedure are i n the results section. CBC W/PLT COUNT & AUTO Routine 11/02/2019 4:59 R esults for this DIFFERENTIAL AM CDT procedure are i n the results section. MAGNESIUM Routine 11/02/2019 4:59 Results for this AM CDT procedure are i n the results section. BASIC METABOLIC PANEL Routine 11/02/2019 4:59 Re sults for this (7) AM CDT procedure are i n the results section. CBC W/PLT COUNT & AUTO Routine 11/02/2019 4:59 R esults for this DIFFERENTIAL AM CDT procedure are i n the results section. SARS-COV2/RT-PCR ([facility] & STAT 11/01/2019 10:37 Results for this REF LABS) AM CDT procedure are i n the results section. CBC W/PLT COUNT & AUTO Routine 11/01/2019 9:43 R esults for this DIFFERENTIAL AM CDT procedure are i n the results section. MAGNESIUM Routine 11/01/2019 9:43 Results for this AM CDT procedure are i n the results section. BASIC METABOLIC PANEL Routine 11/01/2019 9:43 Re sults for this (7) AM CDT procedure are i n the results section. CBC W/PLT COUNT & AUTO Routine 11/01/2019 9:43 R esults for this DIFFERENTIAL AM CDT procedure are i n the results section. CARDIOVERSION Routine 10/31/2019 9:58 PM CDT ECHOCARDIOGRAM REPORT - 10/31/2019 9:21 SCAN PM CDT ECG 12-LEAD Routine 10/31/2019 5:09 PM CDT Procedure Note - Interface, External Ris In - 10/31/2019 5:22 PM CDT Ventricular Rate 120 BPM Atrial Rate 127 BPM QRS Duration 78 ms Q-T Interval 342 ms QTC Calculation(Bazett) 483 ms R [place] -19 degrees T [place] -66 degrees Atrial fibrillation with rap id ventricular response Septal infarct , age undeter mined Abnormal ECG No previous ECGs available ECG 12-LEAD Routine 10/31/2019 5:09 PM CDT Resu lts for this procedure are i n the results section . XR SHOULDER 1 VIEW RIGHT Routine 10/31/2019 12:56 PM CDT Results for this procedure are i n the results section . 2D ECHO W/ DOPPLER Routine 10/31/2019 9:58 AM CDT Results for this (CW/PW/COLOR) procedure are in the results section . MR BRAIN WITHOUT IV Routine 10/31/2019 6:51 AM CDT Results for this CONTRAST procedure are i n the results section . BASIC METABOLIC PANEL (7) Routine 10/31/2019 4:55 AM CDT Results for this procedure are i n the results section . LIPID PANEL Routine 10/31/2019 4:55 AM CDT Resu lts for this procedure are i n the results section . CBC W/PLT COUNT & AUTO Routine 10/31/2019 3:33 AM CDT Results for this DIFFERENTIAL procedure are i n the results section . CBC W/PLT COUNT & AUTO Routine 10/31/2019 3:33 AM CDT Results for this DIFFERENTIAL procedure are i n the results section . T4, FREE Routine 10/30/2019 10:45 AM CDT Resu lts for this procedure are i n the results section . VITAMIN B12 AND FOLATE Routine 10/30/2019 10:45 AM CDT Results for this procedure are i n the results section . TSH/FREE T4 IF INDICATED Routine 10/30/2019 10:45 AM CDT Results for this procedure are i n the results section . CT CEREBRAL PERFUSION STAT 10/30/2019 10:39 AM CDT Results for this ANALYSIS procedure are i n the results section . CTA BRAIN STAT 10/30/2019 10:39 AM CDT Resu lts for this procedure are i n the results section . CT/CTA CAROTID STAT 10/30/2019 10:39 AM CDT Re sults for this procedure are i n the results section . RPR Routine 10/30/2019 9:48 AM CDT Resu lts for this procedure are i n the results section . HEMOGLOBIN A1C Routine 10/30/2019 9:48 AM CDT Re sults for this procedure are i n the results section . CBC W/PLT COUNT & AUTO STAT 10/30/2019 8:45 AM CDT Results for this DIFFERENTIAL procedure are i n the results section . MAGNESIUM STAT 10/30/2019 8:45 AM CDT Resu lts for this procedure are i n the results section . CREATINE KINASE (CK) STAT 10/30/2019 8:45 AM CDT Results for this procedure are i n the results section . PT/APTT STAT 10/30/2019 8:45 AM CDT Resu lts for this procedure are i n the results section . BASIC METABOLIC PANEL (7) STAT 10/30/2019 8:45 AM CDT Results for this procedure are i n the results section . CBC W/PLT COUNT & AUTO STAT 10/30/2019 8:45 AM CDT Results for this DIFFERENTIAL procedure are i n the results section . after 12/25/2018 Results RHYTHM STRIP - SCAN (11/07/2019 12:30 PM CDT) Narrative Performed At This result has an attachment that is no t available. Magnesium (11/05/2019 3:22 AM CDT)Only the most recent of6 resultswithin the time period is included. Magnesium 1.8 1.6 - 2.6 mg/dL [facility] Specimen Blood Narrative Performed At Photoengraving Supervisor ID - REDDY Hua [facility] Performing Organization Address City/State/Zipcode Phone Number [facility] [address] [place] [address] CENTER Basic Metabolic Panel (11/05/2019 3:22 AM CDT)Only the most recent of7 results within the time period is included. Sodium 137 136 - 145 meq/L [facility] Potassium 4.0 3.5 - 5.1 meq/L [facility] Chloride 107 98 - 107 meq/L [facility] CO2 24 22 - 29 meq/L [facility] BUN 15 7 - 21 mg/dL [facility] Creatinine 0.97 0.57 - 1.25 mg/dL [facility] Glucose 84 70 - 105 mg/dL [facility] Calcium 8.1 (L) 8.4 - 10.2 mg/dL [facility] EGFR 55Comment: ESTIMATED GFR IS mL/min/1.73 sq m [facility] NOT ACCURATE CREATININE [facility] CLEARANCE IN PREDICTING GLOMERULAR FILTRATION RATE. ESTIMATED GFR IS NOT APPLICABLE FOR DIALYSIS PATIENTS. Specimen Blood Narrative Performed At Photoengraving Supervisor ID - PIAYA L [facility] Performing Organization Address City/State/Zipcode Phone Number [facility] [address] [place] [address] CENTER ECHOCARDIOGRAM REPORT - SCAN (11/04/2019 9:20 PM CDT) Narrative Performed At This result has an attachment that is no t available. Limited 2D Echocardiogram (11/04/2019 1:48 PM CDT) Ejection Fraction [facility] ECHO HEAR TLAB MKCKESSON CPA Specimen Narrative Performed At Transthoracic Echocardiography Report (T TE) [facility] ECHO HEARTLAB [facility] Demographics Patient NameHERNDON,Date of Study11/04/2019 ANJELICA Female Visit [id number] Room [id number] Number Date of 1Referring Leonor Dennis MD Age 79 year(s)Engagement Director Michelle Craig Electric Meter Setter Calvin Horne Interpreting Physician LELIA Humphrey Procedure Type of Study TTE procedure:LIMITED 2D ECHOCARDIOGRAM (Routine) Indications:Sustained or non sustained Afib, SVT or VT. Clinical History HGB 8.9 HCT 29.2 % Height: 65 inches Weight: 50.8 kg (112 lbs) BSA: 1.55 m^2 BMI: 18.64 kg/m^2 HR: 88 bpm BP: 120/73 mmHg Summary Limited study to assess LV function. The left ventricle is chamber size (by vol index) is normal (female - LVED vol - 29-61ml/m2). All of the LV segments are severely hypokinetic . Estimated LVEF by qualitative assessment is severely reduced (25-29%) . RV chamber size is mildly enlarged . Global RV systolic function is mildly depressed . Unable to estimate peak systolic PA pressure; inadequate TR velocity signal. Signature Findings Left Ventricle The left ventricle is chamber size (by vol index) is normal (female - LVED vol - 29-61ml/m2). Normal LV wall thickness. All of the LV segments a re se verely hypokinetic . Estimated LVEF by qu alitative assessment is severely reduced (25-29%) . Left AtriumLA size is mildly enlarged (35-41 ml/m2) . Right VentricleRV chamber size is mildly enlarged . Gl obal RV systolic function is mildly depr essed . Right Atrium Right atrium severely dilated. Aortic Valve Mild AoV cusp thickening. Mitral Valve Mild MV leaflet thickening. Tricuspid ValveA trace of tricuspid regurgitation. Un able to estimate peak systolic PA pressu re; in adequate TR velocity signal. Pulmonic Valve Normal PV structure and function by limited views an d Doppler. AortaAortic root size (SInus of Valsalva diameter) i s no rmal . PericardiumNo evidence of pericardial effusion. IVC/SVC/PA/PV/PleuralThe estimated RA pressure by IVC dynamics 5-10mmHg . Chambers/Structures Left Atrium LA Dimension: 3.43 cmLA Area: 19.23 cm^2 LA Volume: 59.42 ml LA Vol. Index: 38 ml/m^2 Left Ventricle LVIDd: 4.78 cm LV Septum Diastolic: 0.85 cm LV PW Diastolic: 1 cm LVEDV Guadarrama's:94.47 ml LVESV Guadarrama's:68.73 ml LVEF Guadarrama's: 27.3 %LVEDV I: 61 ml/m^2 LVESVI: 44 ml/m^2 Aorta Ao Root S of Josephine.: 3 cm Doppler/Quantitative Measurements LVOT Peak Velocity: 0.7 m/s Peak Gradient: 1.95 mmHg Mean Velocity: 0.4 m/s Mean Gradient: 0.82 mmHg LVOT VTI: 12.77 cm Procedure Note Interface, External Ris In - 11/04/2019 4:21 PM CDT Transthoracic Echocardiography Report (TTE) Demographics Patient Name CLARITA, Date of Study 11/04/2019 ANJELICA Gender Female Visit Number [id number] Race Room [facility] Dax9 Number Date of 1940 [facility] Physician Raghu Dennis MD Age 79 year(s) Sonogra pher Abed Rafa Electric Meter Setter Calvin Horne Interpr eting Duke Montemayor MD Procedure Type of Study TTE procedure:LIMITED 2D ECHO CARDIOGRAM (Routine) Indications:Sustained or non sustained A fib, SVT or VT. Clinical History HGB 8.9 HCT 29.2 % Height: 65 inches Weight: 50.8 kg (112 l bs) BSA: 1.55 m^2 BMI: 18.64 kg/m^2 HR: 88 bpm BP: 120/73 mmHg Summary Limited study to assess LV function. The left ventricle is chamber size (by vol index) is normal (female - LVED vol - 29-61ml/m2). All of the LV segmen ts are severely hypokinetic . Estimated LVEF by qualitative assessmen t is severely reduced (25-29%) . RV chamber size is mildly enlarged . Gl obal RV systolic function is mildly depressed . Unable to estimate peak systolic PA pre ssure; inadequate TR velocity signal. Signature Findings Left Ventricle The left ventric le is chamber size (by vol index) is normal (femal e - LVED vol - 29-61ml/m2). Normal LV wall thicknes s. All of the LV segments are severely hypokin etic . Estimated LVEF by qualitative asse ssment is severely reduced (25-29%) . Left Atrium LA size is mildl y enlarged (35-41 ml/m2) . Right Ventricle RV chamber size is mildly enlarged . Global RV systol ic function is mildly depressed . Right Atrium Right atrium sev erely dilated. Aortic Valve Mild AoV cusp th ickening. Mitral Valve Mild MV leaflet thickening. Tricuspid Valve A trace of tricu spid regurgitation. Unable to estima te peak systolic PA pressure; inadequate TR ve locity signal. Pulmonic Valve Normal PV struct ure and function by limited views and Doppler. Aorta Aortic root size (SInus of Valsalva diameter) is normal . Pericardium No evidence of p ericardial effusion. IVC/SVC/PA/PV/Pleural The estimated RA pressure by IVC dynamics 5-10mmHg . Chambers/Structures Left Atrium LA Dimension: 3.43 cm LA Area: 19.23 cm^2 LA Volume: 59.42 ml LA Vol. Index: 38 ml/m^2 Left Ventricle LVIDd: 4.78 cm LV Septum Diastolic: 0.85 cm LV PW Diastolic: 1 cm LVEDV Guadarrama's:94.47 ml LVESV Guadarrama's:68.73 ml LVEF Guadarrama's: 27.3 % LVEDVI: 61 ml/m^2 LVESVI: 44 ml/m^2 Aorta Ao Root S of Josephine.: 3 cm Doppler/Quantitative Measurements LVOT Peak Velocity: 0.7 m/s Peak Gradient: 1.95 mmHg Mean Velocity: 0.4 m/s Mean Gradient: 0.82 mmHg LVOT VTI: 12.77 cm Performing Organization Address City/State/Zipcode Phone Number [facility] ECHO HEARTLAB MKCKESSON [facility] CBC with platelet count + automated diff (11/04/2019 5:36 AM CDT)Only the most recent of6 resultswithin the time period is included. WBC 7.1 3.5 - 10.5 K/L [facility] RBC 3.33 (L) 3.93 - 5.22 M/L [facility] Hemoglobin 8.9 (L) 11.2 - 15.7 GM/DL [facility] Hematocrit 29.2 (L) 34.1 - 44.9 % [facility] MCV 87.7 79.4 - 94.[address] [facility] MCH 26.7 25.6 - 32.[address] [facility] MCHC 30.5 (L) 32.2 - 35.5 GM/DL [facility] RDW 17.3 (H) 11.7 - 14.4 % [facility] Platelets 203 150 - 450 K/CU MM [facility] MPV 10.6 9.4 - 12.[address] [facility] nRBC 0 0 - 0 /[address] [facility] % Neutros 55 % [facility] % Lymphs 20 % [facility] % Monos 11 % [facility] % Eos 13 % [facility] % Baso 1 % [facility] # Neutros 3.89 1.56 - 6.13 K/L [facility] # Lymphs 1.43 1.18 - 3.74 K/L [facility] # Monos 0.80 (H) 0.24 - 0.36 K/L [facility] # Eos 0.90 (H) 0.04 - 0.36 K/L [facility] # Baso 0.04 0.01 - 0.08 K/L [facility] Immature Granulocytes-Relative 0 0 - 1 % C HI [facility] Specimen Blood Performing Organization Address City/State/Zipcode Phone Number [facility] [address] [place] [address] CENTER ECHOCARDIOGRAM REPORT - SCAN (11/02/2019 9:21 PM CDT) Narrative Performed At This result has an attachment that is no t available. EKG-SCANNED (11/02/2019 12:32 PM CDT) Narrative Performed At This result has an attachment that is no t available. Transesophageal echo (11/02/2019 11:26 AM CDT) Ejection Fraction [facility] ECHO HEAR [facility] Specimen Narrative Performed At Transesophageal Echocardiography Report (JULIO CESAR) [facility] ECHO HEARTLAB MKCK[facility]ON [facility] Demographics Patient Name ANJELICA LEE Date of Study 11/02/2019 [id number] Gender Female Visit Number [id number] RaceCauc [id number] Room Number [id number] Number Date of Birth1940 Referring Physician Age79 year(s) Engagement Director Vivian Stauffer ms RDCS Soledad Cordero MD Physician Fellow John Vila Procedure Type of Study JULIO CESAR procedure:TRANSESOPHAGEAL ECHO (Routine) Indications:Suspected cardiac source of emboli. Clinical History COPD, ALZHEIMER'S, HYPOTHYROID, CVA Height: 65 inches Weight: 50.8 kg (112 lbs) BSA: 1.55 m^2 BMI: 18.64 kg/m^2 HR: 91 bpm BP: 108/55 mmHg JULIO CESAR Performed By: the attending and the fellow Procedure Informed Consent JULIO CESAR procedure notes Moderate sedation by performing MD using 1 mg IV versed and 25 mcg IV fentanyl. . Type of Anesthesia: See below Summary 1. Normal left ventricular chamber size. Normal wall thickness. Global LV systolic function moderately to severely reduced . 2. There is spontaneous echo contrast (smoke) with some partially formed echo material (sludge) in the left atrial appendage. LA is enlarged but severity assessment is unreliable due to known JULIO CESAR sector size limitation. 3. RV chamber size appears normal by limited views . Global RV systolic function is depressed . 4. No significant valvular abnormality No cardioversion performed due to sludge in LA appendage, recent CVA and rate controlled atrial fibrillation. Signature Findings Rhythm/BP Atrial fibrillation with controlled ventricular response. LeftNormal left ventricular chamber size. Normal wall thickness. Ventricle Global LV systolic function moderately to severely reduced . Left Atrium There is spontaneous echo contrast (smoke) with some partially formed echo material (sludge) in the left atrial appendage. LA is enlarged but severity assessment is unreliable due to known JULIO CESAR sector size limitation. Left atrial appendage velocities are reduced. Right RV chamber size appears normal by limited views . Ventricle Global RV systolic function is depressed . Atrial Septum The interatrial septum is adequately visualized. Normal interatrial septum by available views. No interatria l shunt by color Doppler. Aortic ValveNormal AoV structure and function. Trileaflet valve that opens well. Mitral ValveMild MV leaflet thicken ing. Mild mitral regurgitation. Tricuspid TV structure is malaika l. Valve A trace of tricuspid regurgitation. Unable to estimate peak systolic PA pressure; inadequate TR velocity si gnal. PulmonicA trace of pulmonary regurgitation. Valve Normal PV structu re. Aorta Aortic root size (SInus of Valsalva diameter) is normal . Proximal ascending aorta size is normal . Grade 2 plaque (extensive intimal thickening) in the descending thoracic aorta . Transverse aorta was not well visualized. Pericardium No significant pericardial effusion is visualized. Procedure Note Interface, External Ris In - 11/02/2019 1:55 PM CDT Transesophageal Echocardiography Report (JULIO CESAR) Demographics Patient Name ANJELICA LEE Date of Study 11/02/2019 Gende r Female Visit Number [id number] Race Room Number [id number] Number Date of 1940 Refer ring Physician Age 79 year(s) Sonog maryann Quezada [facility] Inter kimo Cordero MD Physi david Fellow John LEMONS Procedure Type of Study JULIO CESAR procedure:TRANSESOPHAGEAL ECHO (Routine) Indications:Suspected cardiac source of emboli. Clinical History COPD, ALZHEIMER'S, HYPOTHYROID, CVA Height: 65 inches Weight: 50.8 kg (112 l bs) BSA: 1.55 m^2 BMI: 18.64 kg/m^2 HR: 91 bpm BP: 108/55 mmHg JULIO CESAR Performed By: the attending and the fellow Procedure Informed Consent JULIO CESAR procedure notes Moderate sedation by performing MD ramila bergeron 1 mg IV versed and 25 mcg IV fentanyl. . Type of Anesthesia: See below Summary 1. Normal left ventricular chamber size . Normal wall thickness. Global LV systolic function moderately to severel y reduced . 2. There is spontaneous echo contrast ( smoke) with some partially formed echo material (sludge) in the left atri al appendage. LA is enlarged but severity assessment is unreliable due t o known JULIO CESAR sector size limitation. 3. RV chamber size appears normal by li mited views . Global RV systolic function is depressed . 4. No significant valvular abnormality No cardioversion performed due to sludg e in LA appendage, recent CVA and rate controlled atrial fibrillation. Signature Findings Rhythm/BP Atrial fibrillation with controlled ventricular response. Left Normal left ventricular c hamber size. Normal wall thickness. Ventricle Global LV systolic functi on moderately to severely reduced . Left Atrium There is spontaneous echo contrast (smoke) with some partially formed echo mat erial (sludge) in the left atrial appendage. LA is enlarged but severi ty assessment is unreliable due to known JULIO CESAR sector size sykes itation. Left atrial appendage fabienne ocities are reduced. Right RV chamber size appears n ormal by limited views . Ventricle Global RV systolic functi on is depressed . Atrial Septum The interatrial septum is adequately visualized. Normal interatrial septum by available views. No interatrial shunt by color Doppler. Aortic Valve Normal AoV structure and function. Trileaflet valve that opens well. Mitral Valve Mild MV leaflet thickenin g. Mild mitral regurgitation . Tricuspid TV structure is normal. Valve A trace of tricuspid regu rgitation. Unable to estimate peak s ystolic PA pressure; inadequate TR velocity signal. Pulmonic A trace of pulmonary regu rgitation. Valve Normal PV structure. Aorta Aortic root size (SInus o f Valsalva diameter) is normal . Proximal ascending aorta size is normal . Grade 2 plaque (extensive intimal thickening) in the descending thoracic aorta . Transverse aorta was not well visualized. Pericardium No significant pericardia l effusion is visualized. Performing Organization Address City/State/Zipcode Phone Number [facility] SARS-CoV2/RT-PCR ([facility]) (11/01/2019 10:37 AM CDT) SARS-COV2/RT-PCR Negative Not Detected, Negative [facility] SARS-COV-2 PERFORMING LAB CPL [facility] Specimen Other Performing Organization Address City/State/Zipcode Phone Number [facility] [address] [place] [address] CENTER ECHOCARDIOGRAM REPORT - SCAN (10/31/2019 9:21 PM CDT) Narrative Performed At This result has an attachment that is no t available. ECG 12 lead (10/31/2019 5:09 PM CDT) Specimen Narrative Performed At Ventricular Rate 120 BPM GE MUSE Atrial Rate 127 BPM QRS Duration 78 ms Q-T Interval 342 ms QTC Calculation(Bazett) 483 ms R [place] -19 degrees T [place] -66 degrees Atrial fibrillation with rapid ventricul ar response Septal infarct , age undetermined Nonspecific ST and T wave abnormality Abnormal ECG No previous ECGs available Confirmed by MD Mcdowell Roberto ([id number]) on 10/31 7:31:18 AM Procedure Note Interface, External Ris In - 11/01/2019 7:31 AM CDT Ventricular Rate 120 BPM Atrial Rate 127 BPM QRS Duration 78 ms Q-T Interval 342 ms QTC Calculation(Bazett) 483 ms R [place] -19 degrees T [place] -66 degrees Atrial fibrillation with rapid ventricul ar response Septal infarct , age undetermined Nonspecific ST and T wave abnormality Abnormal ECG No previous ECGs available Confirmed by MD Jeremias, Alexandru ([id number]) on 11/01/2019 7:31:18 AM Performing Organization Address City/[facility]/Zipcode Phone Number [facility] MUSE XR shoulder 1 view right (10/31/2019 12:56 PM CDT) Specimen Narrative Performed At FINAL REPORT Omnidrone TECHNIQUE: Single internal rotation view of the right shoulder dated 10/31/2019 HISTORY: Exterior bruising COMPARISON: None. FINDINGS: No acute fracture or dislocation seen in the single view provided. Hill-Sachs deformity is seen in the ace ral head. Bones are osteopenic.. Degenerative changes are se en in the acromioclavicular joint. No bone erosion or soft tissue no dule seen. No radiodense foreign body or subcutaneous emphysema. IMPRESSION: No acute fracture or dislocation in the image provided. Signed: Navneet Harden MD Report Verified Date/Time:10/31/2019 13:31:59 Reading Location: [address] Consult R eading Room Procedure Note Interface, External Ris In - 10/31/2019 1:34 PM CDT FINAL REPORT TECHNIQUE: Single internal rotation view of the right shoulder dated 10/31/2019 HISTORY: Exterior bruising COMPARISON: None. FINDINGS: No acute fracture or dislocation seen in the single view provided. Hill-Sachs deformity is seen in the ace ral head. Bones are osteopenic.. Degenerative changes are se en in the acromioclavicular joint. No bone erosion or soft tissue no dule seen. No radiodense foreign body or subcutaneous emphysema. IMPRESSION: No acute fracture or dislocation in the image provided. Signed: Navneet Harden MD Report Verified Date/Time: 10/31/2019 1 3:31:59 Reading Location: [facility] B1 [id number] Consult R eading Room Performing Organization Address City/State/Zipcode Phone Number [facility] RIS 2D Echo W/Doppler(CW/PW/Color) (10/31/2019 9:58 AM CDT) Ejection Fraction [facility]AR [facility]LAB [facility] Specimen Narrative Performed At Transthoracic Echocardiography Report (T TE) [facility] ECHO HEARTLAB [facility] Demographics Patient NameANJELICA LEE Date of Study10/31/2019 Gender Female Visit [id number] Race Zhanna ernts [id number] Number Date of 1940 ReferringArif Kimani Physician Age 79 year(s) SonographAisha perez [facility] Interpreting Katja Lynn Physician FellowPrasanna hua MD Procedure Type of Study TTE procedure:2DECHO W DOPPLER(CW/PW/COLOR) (Routine) Indications:Suspected cardiac source of emboli. Clinical History HGB 9.1 HCT 30.1 % COPD, ALZHEIMER'S, HYPOTHYROID Contrast Medium: Bubble Study. Height: 65 inches Weight: 50.8 kg (112 lbs) BSA: 1.55 m^2 BMI: 18.64 kg/m^2 HR: 104 bpm BP: 154/83 mmHg Summary 1. Normal LV chamber size. Severe global hypokinesis. Severely depressed EF (LVEF <20% qualitatively). Contrast was not used, but LV thrombus is not visualized on available images. 2. IV saline contrast injection was negative for a PFO (patent foramen ovale) at rest and post Valsalva . 3. No significant valve disease detecte d. 4. No significant pericardial effusion is visualized. Previous Study No prior studies available for comparis on. Signature Findings Left Ventricle Normal left ventricular chamber size. Normal wall th ickness. Severe global hypokinesis. Irina rely de pressed EF (LVEF <20% qualitatively). Gr luke 3 di astolic dysfunction (marked elevated LA pr essure). Left AtriumLA size is mildly enlarged . Right VentricleThe right ventricular chamber size is mildly di lated and systolic function is within no rmal li mits. Right Atrium RA size is moderately dilated. Atrial SeptumIV saline contrast injection was negative for a PF O (p atent foramen ovale) at rest and post Va lsalva . Aortic Valve The aortic valve leaflets appear mildly sclerotic. No rmal AoV function. Mitral Valve Mild MR. Normal MV structure and function. Tricuspid ValveA trace of tricuspid regurgitation. Es timated peak systolic PA pressure is 20- 25 mmHg . PericardiumNo significant pericardial effusion is visualized. IVC/SVC/PA/PV/PleuralThe estimated RA pressure by IVC dynamics 5-10mmHg . Chambers/Structures Left Atrium LA Volume: 50.22 mlLA Area: 19.1 cm^2 LA Vol. Index: 32 ml/m^2 Left Ventricle LVIDd: 5.04 cm LVEDV:12 0.41 ml LV Septum Diastolic: 0.56 cm LV PW Diastolic: 0.61 cm LVOT Diameter: 2.26 cm Doppler/Quantitative Measurements Aortic Valve Peak Velocity: 0.92 m/sMean Velocity: 0.68 m/s Peak Gradient: 3.36 mmHg Mean Gradient: 2.01 mmHg AV Area (continuity): 3.15 cm^2 AV VTI: 15.84 cm AV DVI: 0.79 LVOT Peak Velocity: 0.71 m/s Peak Gradient: 2.07 mmHg Mean Velocity: 0.5 m/sMean Gradient: 1.18 mmHg LVOT Diameter: 2.26 cmLVOT VTI: 12.46 cm LVOT Area: 4.01 cm^2LVOT SV:49.96 ml LVOT CO: 5.2 l/minLVOT CI: 3.35 l/min/m^2 Tricuspid Valve TR Velocity: 1.99 m/s TR Gradient: 15.9 mmHg Procedure Note Interface, External Ris In - 10/31/2019 4:34 PM CDT Transthoracic Echocardiography Report (TTE) Demographics Patient Name ANJELICA LEE Date o f Study 10/31/2019 Gender Female Visit Number [id number] Race Room N ganesh [id number] Number Date of 1940 Referr catrina sharma Age 79 year(s) Sonogr pankaj Quezada [facility] Interp reting Oliverio Tinajero MD Fellow Prasanna Boswell MD Procedure Type of Study TTE procedure:2DECHO W DOPPLE R(CW/PW/COLOR) (Routine) Indications:Suspected cardiac source of emboli. Clinical History HGB 9.1 HCT 30.1 % COPD, ALZHEIMER'S, HYPOTHYROID Contrast Medium: Bubble Study. Height: 65 inches Weight: 50.8 kg (112 l bs) BSA: 1.55 m^2 BMI: 18.64 kg/m^2 HR: 104 bpm BP: 154/83 mmHg Summary 1. Normal LV chamber size. Severe globa l hypokinesis. Severely depressed EF (LVEF <20% qualitatively). Contrast was not used, but LV thrombus is not visualized on available images. 2. IV saline contrast injection was neg ative for a PFO (patent foramen ovale) at rest and post Valsalva . 3. No significant valve disease detecte d. 4. No significant pericardial effusion is visualized. Previous Study No prior studies available for comparis on. Signature Findings Left Ventricle Normal left vent ricular chamber size. Normal wall thickness. Sever e global hypokinesis. Severely depressed EF (LV EF <20% qualitatively). Grade 3 diastolic dysfun ction (marked elevated LA pressure). Left Atrium LA size is mildl y enlarged . Right Ventricle The right ventri cular chamber size is mildly dilated and syst olic function is within normal limits. Right Atrium RA size is moder ately dilated. Atrial Septum IV saline contra st injection was negative for a PFO (patent foramen ovale) at rest and post Valsalva . Aortic Valve The aortic valve leaflets appear mildly sclerotic. Normal AoV funct ion. Mitral Valve Mild MR. Normal MV structure and function. Tricuspid Valve A trace of tricu spid regurgitation. Estimated peak s ystolic PA pressure is 20-25 mmHg . Pericardium No significant p ericardial effusion is visualized. IVC/SVC/PA/PV/Pleural The estimated RA pressure by IVC dynamics 5-10mmHg . Chambers/Structures Left Atrium LA Volume: 50.22 ml LA Area: 19.1 cm^2 LA Vol. Index: 32 ml/m^2 Left Ventricle LVIDd: 5.04 cm LVEDV:120.41 ml LV Septum Diastolic: 0.56 cm LV PW Diastolic: 0.61 cm LVOT Diameter: 2.26 cm Doppler/Quantitative Measurements Aortic Valve Peak Velocity: 0.92 m/s Mean Velocity: 0.68 m/s Peak Gradient: 3.36 mmHg Mean Gradient: 2.01 mmHg AV Area (continuity): 3.15 cm^2 AV VTI: 15.84 cm AV DVI: 0.79 LVOT Peak Velocity: 0.71 m/s Pea k Gradient: 2.07 mmHg Mean Velocity: 0.5 m/s Shannan n Gradient: 1.18 mmHg LVOT Diameter: 2.26 cm LVO T VTI: 12.46 cm LVOT Area: 4.01 cm^2 LVO T SV:49.96 ml LVOT CO: 5.2 l/min LVO T CI: 3.35 l/min/m^2 Tricuspid Valve TR Velocity: 1.99 m/s TR Gradient: 15.9 mmHg Performing Organization Address City/State/Zipcode Phone Number [facility] MR brain without IV contrast (10/31/2019 6:51 AM CDT) Specimen Narrative Performed At FINAL REPORT Omnidrone MRI Brain without contrast Clinical History: Stroke, follow up Technique: MRI of the brain utilizing ax ial T2, FLAIR, GRE, DWI; sagittal and coronal T1-weighted images. Comparisons: CT 10/30/2019 Findings: There is small-volume acute infarction o f the left frontal operculum and insula. There is no intracranial hem orrhage. There is a chronic infarct of the left parietal lobe. There is a chronic lacunar infarct of the right thalamus. There is moderate periventricular and subcortical white matter T2 hyperintensi ty, which is nonspecific but compatible with chronic microvascular is chemic change. There is generalized parenchymal volume loss with out hydrocephalus, midline shift, or apparent mass effect. There ar e no extra-axial fluid collections. The craniocervical junction is preserved. The major intracranial flow-voids appear patent. T here is right cataract surgery. IMPRESSION: Small acute infarction of the left front al operculum and insula, without hemorrhage. Chronic left parietal lobe infarction. Chronic lacunar infarct right thalamus. Signed: Crystal Perry MD Report Verified Date/Time:10/31/2019 07:37:08 Reading Location: [address] Procedure Note Interface, External Ris In - 10/31/2019 7:40 AM CDT FINAL REPORT MRI Brain without contrast Clinical History: Stroke, follow up Technique: MRI of the brain utilizing ax ial T2, FLAIR, GRE, DWI; sagittal and coronal T1-weighted images. Comparisons: CT 10/30/2019 Findings: There is small-volume acute infarction o f the left frontal operculum and insula. There is no intracranial hem orrhage. There is a chronic infarct of the left parietal lobe. There is a chronic lacunar infarct of the right thalamus. There is moderate periventricular and subcortical white matter T2 hyperintensi ty, which is nonspecific but compatible with chronic microvascular is chemic change. There is generalized parenchymal volume loss with out hydrocephalus, midline shift, or apparent mass effect. There ar e no extra-axial fluid collections. The craniocervical junction is preserved. The major intracranial flow-voids appear patent. T here is right cataract surgery. IMPRESSION: Small acute infarction of the left front al operculum and insula, without hemorrhage. Chronic left parietal lobe infarction. Chronic lacunar infarct right thalamus. Signed: Crystal Perry MD Report Verified Date/Time: 10/31/2019 0 7:37:08 Reading Location: [address] Room Performing Organization Address City/[facility]/Zipcode Phone Number GE RIS Fasting lipid panel (10/31/2019 4:55 AM CDT) Triglycerides 50 mg/dL [facility] Cholesterol 100 mg/dL [facility] HDL 39 mg/dL [facility] LDL Calculated 51 mg/dL [facility] Specimen Blood Narrative Performed At Triglyceride Reference Range: [facility] Low Risk <150 [id number] High Risk 200-499 Very High Risk>=500 Cholesterol Reference Range: Low Risk <200 [id number] High Risk>240 HDL Cholesterol Reference Range: Low Risk >=60 High Risk <40 LDL Cholesterol Reference Range: Optimal<100 Near [id number] Very High >=190 Photoengraving Supervisor ID - [place] Photoengraving Supervisor ID - DB Performing Organization Address [facility] Cent[facility]ode Phone Number [address] [address] CENTER Vitamin B12 and Folate (10/30/2019 10:45 AM CDT) Vitamin B12 716 213 - 816 pg/mL [facility] Folate 35.30 >=7.00 ng/mL [facility] Specimen Blood Narrative Performed At Photoengraving Supervisor ID - NTP [facility] Performing Organization Address City/[facility]/Zipcode Phone Number [place] [phone] [place] [address] CENTER TSH/Free T4 If Indicated (10/30/2019 10:45 AM CDT) TSH 7.461 (H) 0.350 - 4.940 uIU/mL [facility] Specimen Blood Narrative Performed At Photoengraving Supervisor ID - NTP [facility] Performing Organization Address [facility]/Zipcode Phone Number [place] [address] [place] [address] CENTER T4, free (10/30/2019 10:45 AM CDT) Free T4 0.74 0.70 - 1.48 ng/dL [facility] Specimen Blood Narrative Performed At Photoengraving Supervisor ID - NTP [facility] Performing Organization Address City/State/Zipcode Phone Number [facility] [address] [place] [address] [place] CTA carotid (10/30/2019 10:39 AM CDT) Specimen Narrative Performed At FINAL REPORT Omnidrone CLINICAL HISTORY: Neuro deficit, acute, stroke suspected TECHNIQUE: Initially, noncontrast head C T images were performed. Contiguous contrast-enhanced axial image s through the neck followed by axial images through the head with co davonte and sagittal reformations to assess the arterial circ ulation. 3-D reconstructions were performed using a volume rendered t echnique separately on a workstation. CT perfusion was also perfo rmed with data post processing generated by [employer] software. Th is exam was performed according to the departmental dose optim ization program which includes automated exposure control, adj ustment of the mA and/or kV according to the patient size, and/or us e of an iterative reconstruction technique. COMPARISON: None FINDINGS: There is no CT evidence of acute infarct or hemorrhage. There is periventricular and subcortical white ma tter hypodensity which is nonspecific but compatible with chronic microvascular ischemic change. There are atherosclerotic calcif ications of the intracranial circulation. There is generalized parenc hymal volume loss without hydrocephalus, midline shift, or apparen t mass effect. The CT angiogram images of the head reve al no evidence of large vessel occlusion. There is multifocal in tracranial atherosclerotic disease. No aneurysms are seen. The shawn r intradural venous sinuses are patent. There is a 70% stenosis of the proximal right internal carotid artery by NASCET criteria. There is a 50% stenosis of the proximal left internal carotid artery by NASCET criteria. 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 There is severe stenosis of the origin o f the right vertebral artery which is otherwise patent. CT perfusion data: Relative cerebral blood flow <30%: 0 cc. TMax >6s: 31 cc in the left middle cereb ral artery distribution. Mismatch volume: 31 cc Mismatch ratio: N/A There are dorsal spondylitic changes in the cervical spine. There are scattered subcentimeter lymph nodes in t he neck. There is biapical emphysematous disease. IMPRESSION: No CT evidence of acute infarct or hemor rhage.CT perfusion data as above. No evidence for a [place] large vessel occlusion. 70% stenosis proximal right internal car otid artery by NASCET criteria. 50% stenosis proximal left internal moreno tid artery by NASCET criteria. 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 The findings were discussed with the [facility] neurologist at approximately 10:50 AM. Signed: Crystal Perry MD Report Verified Date/Time:10/30/2019 11:01:04 Reading Location: [facility] C013V [facility] Room Procedure Note Interface, External Ris In - 10/30/2019 11:03 AM CDT FINAL REPORT CLINICAL HISTORY: Neuro deficit, acute, stroke suspected TECHNIQUE: Initially, noncontrast head C T images were performed. Contiguous contrast-enhanced axial image s through the neck followed by axial images through the head with co davonte and sagittal reformations to assess the arterial circ ulation. 3-D reconstructions were performed using a volume rendered t echnique separately on a workstation. CT perfusion was also perfo rmed with data post processing generated by [employer] software. Th is exam was performed according to the departmental dose optim ization program which includes automated exposure control, adj ustment of the mA and/or kV according to the patient size, and/or us e of an iterative reconstruction technique. COMPARISON: None FINDINGS: There is no CT evidence of acute infarct or hemorrhage. There is periventricular and subcortical white ma tter hypodensity which is nonspecific but compatible with chronic microvascular ischemic change. There are atherosclerotic calcif ications of the intracranial circulation. There is generalized parenc hymal volume loss without hydrocephalus, midline shift, or apparen t mass effect. The CT angiogram images of the head reve al no evidence of large vessel occlusion. There is multifocal in tracranial atherosclerotic disease. No aneurysms are seen. The shawn r intradural venous sinuses are patent. There is a 70% stenosis of the proximal right internal carotid artery by NASCET criteria. There is a 50% stenosis of the proximal left internal carotid artery by NASCET criteria. 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 There is severe stenosis of the origin o f the right vertebral artery which is otherwise patent. CT perfusion data: Relative cerebral blood flow <30%: 0 cc. TMax >6s: 31 cc in the left middle cereb ral artery distribution. Mismatch volume: 31 cc Mismatch ratio: N/A There are dorsal spondylitic changes in the cervical spine. There are scattered subcentimeter lymph nodes in t he neck. There is biapical emphysematous disease. IMPRESSION: No CT evidence of acute infarct or hemor rhage. CT perfusion data as above. No evidence for a [place] large vessel occlusion. 70% stenosis proximal right internal car otid artery by NASCET criteria. 50% stenosis proximal left internal moreno tid artery by NASCET criteria. 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 The findings were discussed with the [facility] neurologist at approximately 10:50 AM. Signed: Crystal Perry MD Report Verified Date/Time: 10/30/2019 1 1:01:04 Reading Location: [facility] C013V [facility] Performing Organization Address City/State/Zipcode Phone Number Omnidrone CT brain cerebral perfusion analysis (10/30/2019 10:39 AM CDT) Specimen Narrative Performed At FINAL REPORT Omnidrone CLINICAL HISTORY: Neuro deficit, acute, stroke suspected TECHNIQUE: Initially, noncontrast head C T images were performed. Contiguous contrast-enhanced axial image s through the neck followed by axial images through the head with co davonte and sagittal reformations to assess the arterial circ ulation. 3-D reconstructions were performed using a volume rendered t echnique separately on a workstation. CT perfusion was also perfo rmed with data post processing generated by [employer] software. Th is exam was performed according to the departmental dose optim ization program which includes automated exposure control, adj ustment of the mA and/or kV according to the patient size, and/or us e of an iterative reconstruction technique. COMPARISON: None FINDINGS: There is no CT evidence of acute infarct or hemorrhage. There is periventricular and subcortical white ma tter hypodensity which is nonspecific but compatible with chronic microvascular ischemic change. There are atherosclerotic calcif ications of the intracranial circulation. There is generalized parenc hymal volume loss without hydrocephalus, midline shift, or apparen t mass effect. The CT angiogram images of the head reve al no evidence of large vessel occlusion. There is multifocal in tracranial atherosclerotic disease. No aneurysms are seen. The shawn r intradural venous sinuses are patent. There is a 70% stenosis of the proximal right internal carotid artery by NASCET criteria. There is a 50% stenosis of the proximal left internal carotid artery by NASCET criteria. 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 There is severe stenosis of the origin o f the right vertebral artery which is otherwise patent. CT perfusion data: Relative cerebral blood flow <30%: 0 cc. TMax >6s: 31 cc in the left middle cereb ral artery distribution. Mismatch volume: 31 cc Mismatch ratio: N/A There are dorsal spondylitic changes in the cervical spine. There are scattered subcentimeter lymph nodes in t he neck. There is biapical emphysematous disease. IMPRESSION: No CT evidence of acute infarct or hemor rhage.CT perfusion data as above. No evidence for a [place] large vessel occlusion. 70% stenosis proximal right internal car otid artery by NASCET criteria. 50% stenosis proximal left internal moreno tid artery by NASCET criteria. 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 The findings were discussed with the [facility] neurologist at approximately 10:50 AM. Signed: Crystal Perry MD Report Verified Date/Time:10/30/2019 11:01:04 Reading Location: [address] Procedure Note Interface, External Ris In - 10/30/2019 11:03 AM CDT FINAL REPORT CLINICAL HISTORY: Neuro deficit, acute, stroke suspected TECHNIQUE: Initially, noncontrast head C T images were performed. Contiguous contrast-enhanced axial image s through the neck followed by axial images through the head with co davonte and sagittal reformations to assess the arterial circ ulation. 3-D reconstructions were performed using a volume rendered t echnique separately on a workstation. CT perfusion was also perfo rmed with data post processing generated by [employer] software. Th is exam was performed according to the departmental dose optim ization program which includes automated exposure control, adj ustment of the mA and/or kV according to the patient size, and/or us e of an iterative reconstruction technique. COMPARISON: None FINDINGS: There is no CT evidence of acute infarct or hemorrhage. There is periventricular and subcortical white ma tter hypodensity which is nonspecific but compatible with chronic microvascular ischemic change. There are atherosclerotic calcif ications of the intracranial circulation. There is generalized parenc hymal volume loss without hydrocephalus, midline shift, or apparen t mass effect. The CT angiogram images of the head reve al no evidence of large vessel occlusion. There is multifocal in tracranial atherosclerotic disease. No aneurysms are seen. The shawn r intradural venous sinuses are patent. There is a 70% stenosis of the proximal right internal carotid artery by NASCET criteria. There is a 50% stenosis of the proximal left internal carotid artery by NASCET criteria. 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 There is severe stenosis of the origin o f the right vertebral artery which is otherwise patent. CT perfusion data: Relative cerebral blood flow <30%: 0 cc. TMax >6s: 31 cc in the left middle cereb ral artery distribution. Mismatch volume: 31 cc Mismatch ratio: N/A There are dorsal spondylitic changes in the cervical spine. There are scattered subcentimeter lymph nodes in t he neck. There is biapical emphysematous disease. IMPRESSION: No CT evidence of acute infarct or hemor rhage. CT perfusion data as above. No evidence for a [place] large vessel occlusion. 70% stenosis proximal right internal car otid artery by NASCET criteria. 50% stenosis proximal left internal moreno tid artery by NASCET criteria. 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 The findings were discussed with the [facility] neurologist at approximately 10:50 AM. Signed: Crystal Perry MD Report Verified Date/Time: 10/30/2019 1 1:01:04 Reading Location: [facility] B1 C013V Neuro [place] ding Room Performing Organization Address City/State/Zipcode Phone Number [facility] RAVINDER CTA brain (10/30/2019 10:39 AM CDT) Specimen Narrative Performed At FINAL REPORT [facility] RAVINDER CLINICAL HISTORY: Neuro deficit, acute, stroke suspected TECHNIQUE: Initially, noncontrast head C T images were performed. Contiguous contrast-enhanced axial image s through the neck followed by axial images through the head with co davonte and sagittal reformations to assess the arterial circ ulation. 3-D reconstructions were performed using a volume rendered t echnique separately on a workstation. CT perfusion was also perfo rmed with data post processing generated by [employer] software. Th is exam was performed according to the departmental dose optim ization program which includes automated exposure control, adj ustment of the mA and/or kV according to the patient size, and/or us e of an iterative reconstruction technique. COMPARISON: None FINDINGS: There is no CT evidence of acute infarct or hemorrhage. There is periventricular and subcortical white ma tter hypodensity which is nonspecific but compatible with chronic microvascular ischemic change. There are atherosclerotic calcif ications of the intracranial circulation. There is generalized parenc hymal volume loss without hydrocephalus, midline shift, or apparen t mass effect. The CT angiogram images of the head reve al no evidence of large vessel occlusion. There is multifocal in tracranial atherosclerotic disease. No aneurysms are seen. The shawn r intradural venous sinuses are patent. There is a 70% stenosis of the proximal right internal carotid artery by NASCET criteria. There is a 50% stenosis of the proximal left internal carotid artery by NASCET criteria. 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 There is severe stenosis of the origin o f the right vertebral artery which is otherwise patent. CT perfusion data: Relative cerebral blood flow <30%: 0 cc. TMax >6s: 31 cc in the left middle cereb ral artery distribution. Mismatch volume: 31 cc Mismatch ratio: N/A There are dorsal spondylitic changes in the cervical spine. There are scattered subcentimeter lymph nodes in t he neck. There is biapical emphysematous disease. IMPRESSION: No CT evidence of acute infarct or hemor rhage.CT perfusion data as above. No evidence for a [place] large vessel occlusion. 70% stenosis proximal right internal car otid artery by NASCET criteria. 50% stenosis proximal left internal moreno tid artery by NASCET criteria. 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 The findings were discussed with the [facility] neurologist at approximately 10:50 AM. Signed: Crystal Perry MD Report Verified Date/Time:10/30/2019 11:01:04 Reading Location: [facility] C013V [facility] Room Procedure Note Interface, External Ris In - 10/30/2019 11:03 AM CDT FINAL REPORT CLINICAL HISTORY: Neuro deficit, acute, stroke suspected TECHNIQUE: Initially, noncontrast head C T images were performed. Contiguous contrast-enhanced axial image s through the neck followed by axial images through the head with co davonte and sagittal reformations to assess the arterial circ ulation. 3-D reconstructions were performed using a volume rendered t echnique separately on a workstation. CT perfusion was also perfo rmed with data post processing generated by [employer] software. Th is exam was performed according to the departmental dose optim ization program which includes automated exposure control, adj ustment of the mA and/or kV according to the patient size, and/or us e of an iterative reconstruction technique. COMPARISON: None FINDINGS: There is no CT evidence of acute infarct or hemorrhage. There is periventricular and subcortical white ma tter hypodensity which is nonspecific but compatible with chronic microvascular ischemic change. There are atherosclerotic calcif ications of the intracranial circulation. There is generalized parenc hymal volume loss without hydrocephalus, midline shift, or apparen t mass effect. The CT angiogram images of the head reve al no evidence of large vessel occlusion. There is multifocal in tracranial atherosclerotic disease. No aneurysms are seen. The shawn r intradural venous sinuses are patent. There is a 70% stenosis of the proximal right internal carotid artery by NASCET criteria. There is a 50% stenosis of the proximal left internal carotid artery by NASCET criteria. 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 There is severe stenosis of the origin o f the right vertebral artery which is otherwise patent. CT perfusion data: Relative cerebral blood flow <30%: 0 cc. TMax >6s: 31 cc in the left middle cereb ral artery distribution. Mismatch volume: 31 cc Mismatch ratio: N/A There are dorsal spondylitic changes in the cervical spine. There are scattered subcentimeter lymph nodes in t he neck. There is biapical emphysematous disease. IMPRESSION: No CT evidence of acute infarct or hemor rhage. CT perfusion data as above. No evidence for a [place] large vessel occlusion. 70% stenosis proximal right internal car otid artery by NASCET criteria. 50% stenosis proximal left internal moreno tid artery by NASCET criteria. 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 The findings were discussed with the [facility] neurologist at approximately 10:50 AM. Signed: Crystal Perry MD Report Verified Date/Time: 10/30/2019 1 1:01:04 Reading Location: [address] Performing Organization Address City/State/Zipcode Phone Number GE RIS RPR (10/30/2019 9:48 AM CDT) RPR Nonreactive Nonreactive [facility] Specimen Blood Performing Organization Address City/State/Zipcode Phone Number [address] [address] [place] Hemoglobin A1c (10/30/2019 9:48 AM CDT) Hemoglobin A1C 5.3 4.3 - 6.1 % [facility] Specimen Blood Performing Organization Address City/[facility]/Zipcode Phone Number [address] [address] [place] PT/aPTT (10/30/2019 8:45 AM CDT) Protime 16.8 (H) 11.9 - 14.2 seconds [facility] INR 1.4 <=5.9 [facility] PTT 34.2 22.5 - 36.0 seconds [facility] Specimen Blood Narrative Performed At Effective 11/29/2018: PT Reference Range [facility] Change New: 11.9-14.2Previous: 11.7-14.7 RECOMMENDED COUMADIN/WARFARIN INR THERAPY RANGES STANDARD DOSE: 2.0-3.0Includes: PROPHYLAXIS for venous thrombosis, systemic embolization; TREATMENT for venous thrombosis and/or pulmonary embolus. HIGH RISK: Target INR is 2.5-3.5 for patients wiht mechanical heart valves. Performing Organization Address City/State/Zipcode Phone Number [facility] [address] [place] [address] CENTER Creatine Kinase (CK) (10/30/2019 8:45 AM CDT) Total CK 41 29 - 200 U/L [facility] Specimen Blood Narrative Performed At Photoengraving Supervisor ID - [id number] [facility] Performing Organization Address City/State/Zipcode Phone Number [facility] [address] [place] [address] CENTER after 12/25/2018 Insurance Payer Benefit Plan / Subscriber ID Type Phone Address Group MEDICARE MEDICARE A B xxxxxxxxxxx Medicare MEDICAID - [place]ERISSA COMM STAR xxxxxxxxx Medicaid MEDICAID MGD CARE PLAN Contracted [facility] xxxxxxxx [place] [address] Advance Directives For more information, please contact:[address] [phone] Code Status Date Activated Date Inactivated Comments Full Code 10/30/2019 9:39 AM 11/05/2019 3:40 PM This code status was determined by: Patient Full Code 10/30/2019 9:39 AM 10/30/2019 9:39 AM This code status was determined by: Patient
--- OUTSIDE RECORDS SUMMARY | 2019-12-26 20:03 | XMS REPORT | Continuity of Care Document ---
:1940 Author Organization [facility] t Address [address] [place] [address] Care Team Providers Name Role Phone Napoleon Cross Primary Care Physician Araseli Harman MD Attending Clinician Darien Calvillo MD Attending Clinician Jennifer Blanchard MD Attending Clinician Segundo ROWELL I. Attending Clinician Brian SCHUMACHER Attending Clinician Unavailable KIMANI Attending Clinician Unavailable Jessica FLORENTINO Admitting Clinician Unavailable Payers Payer Name Policy Policy Number Effective Expiration Source Type Date Date MEDICAREMEDICARE A xxxxxxxxxxx [place] S t BxxxxxxxxxxxMedicare [facility] MEDICAID - MEDICAID MGD CARED xxxxxxxxx [facility] STAR [facility] - PLANxxxxxxxxxMedicaid Med ical Contracted Center CDCREVIEWCDCREVIEWxxxxxxxxPO xxxxxxxx [place] [address] [facility] Problems Condition Condition Condition Status Onset Resolution Last Treating Co mments Source Name Details Category Date Date Treatment Clinician Date Acute Acute Disease Active [facility] 10-30 [facility] - stroke stroke 00:00: Medical 00 [place] Essential Essential Disease Active [facility] hypertensi hypertensi 10-30 [facility] kes - on on 00:00: Medical 00 Center Alzheimer Alzheimer Disease Active [facility] disease disease 10-30 [facility] - 00:[facility] 00 [facility] Hypothyroi Hypothyroi Disease Active 2019- [facility] d d 10-30 [facility] - 00:: Medical 00 [place] Hypertensi Hypertensi Disease Active C HI [facility] ve ve 10-30 [facility] - emergency emergency 00:00: Medi antonio 00 Center Allergies, Adverse Reactions, Alerts This patient has no known allergies or adverse reactions. Social History Social Habit Start Date Stop Date Quantity Comments Source History SDOH Alcohol [facility] - Std Drinks [facility] History SDOH Alcohol [facility] - Binge [facility] Sex Assigned At [facility] kes - [facility] History SDOH Alcohol 2019-10-31 2019-10-31 [address] [facility] - Frequency 00:00:00 00:00:00 [facility] Smoking Status Start Date Stop Date Source Never smoker [facility] Medications Ordered Filled Start Stop Current Ordering Indication Dosage Frequency Signature Comments Components Source Medication Medication Date Date Medication? Clinician (SIG) Name Name aspirin 81 Yes 81mg QD Take [address] MG EC 11-04 by mouth [facility] - tablet 12:27: daily. [address] lisinopriL 2019- No 2.5mg QD Take [address] (PRINIVIL,Z 11-04 tablet [facility] - ESTRIL) 2.5 00:00: 23:59 (2.5 mg Me dical MG tablet 00 :00 total) by Cente r mouth daily for 30 days. apixaban 2019- No 2.5mg Q.5D Take 1 [facility] (ELIQUIS) 11-03 tablet [facility] - 2.5 mg Tab 00:00: 23:59 (2.5 mg Med ical tablet 00 :00 total) by Center mouth 2 (two) times daily for 30 days. atorvastati 2019- No 80mg QD Take [address] n (LIPITOR) 11-03 tablet (80 L ukes - 80 MG 00:00: 23:59 mg total) Medica l tablet 00 :00 by mouth Center nightly for 30 days. carvediloL 2019- No 6.25mg Q.5D Take [address] (COREG) 11-03 tablet [facility] - 6.25 MG 00:00: 23:59 (6.25 mg Medic al tablet 00 :00 total) by Center mouth 2 (two) times daily for 30 days. divalproex 2020-0 Yes 250mg Q.[id number] Take [address] (DEPAKOTE) 4-28 [id number] mg by Adenike kes - 250 MG EC 14:46: 3D mouth 3 Medic al tablet 39 (three) Center times daily. galantamine 2020-0 Yes 12mg Q.5D Take [address] (RAZADYNE) 4-28 by mouth 2 Pauline es - 12 MG 14:46: (two) Medical tablet 39 times Center daily. ipratropium 2020-0 Yes 3mL Take [address] -albuteroL 4-28 by Lumar - (DUO-NEB) 14:46: nebulizati Me dical 0.5 mg-3 39 on every 6 Cente r mg(2.5 mg (six) base)/3 mL hours as nebulizer needed for solution Wheezing. budesonide- 2020-0 Yes 2{puff} Q.5D Inhale [address] formoteroL 4-28 puffs by Sp - (SYMBICORT) 14:46: mouth via M edical 160-4.5 39 inhaler 2 Center mcg/actuati (two) on inhaler times daily. levothyroxi 2019-0 Yes 75ug Take [address] ne 4-28 mcg by Sp - (SYNTHROID, 09:41: mouth Medic al LEVOTHROID) 16 Every Center 75 MCG morning on tablet an empty stomach. mirabegron 2018- Yes 25mg QD Take [address] (MYRBETRIQ) 2-12 by mouth Adenikeke s - 25 mg Tb24 00:00: nightly. Med ical ER tablet 00 Center Vital Signs Vital Name Observation Time Observation Value Comments Source Systolic blood 2019-11-05 11:07:00 124 mm[Hg] [facility] pressure [facility] Diastolic blood 2019-11-05 11:07:00 56 mm[Hg] [facility] Heart rate 2019-11-05 11:07:00 84 /min [facility] es [facility] Body temperature 2019-11-05 11:07:00 36.39 Angi [facility] Respiratory rate 2019-11-05 11:07:00 17 /min [facility] Oxygen saturation in 2019-11-05 11:07:00 98 /min [facility] Arterial blood by Medical Ce nter Pulse oximetry Body height 2019-10-30 08:34:00 165.1 cm [facility] Body weight Measured 2019-10-30 08:34:00 50.803 kg [facility] BMI 2019-10-30 08:34:00 18.64 kg/m2 [facility] Procedures Procedure Date / Time Performing Clinician Source Performed RHYTHM STRIP - SCAN 2019-11-07 12:30:42 Provider, [facility] BASIC METABOLIC PANEL (7) 2019-11-05 03:22:00 [facility] 2019-11-05 03:22:00 Santo [facility] ECHOCARDIOGRAM REPORT - 2019-11-04 21:20:33 Provider, Matti [facility] LIMITED 2D ECHOCARDIOGRAM 2019-11-04 13:48:10 Santo [facility] BASIC METABOLIC PANEL (7) 2019-11-04 05:36:00 [facility] 2019-11-04 05:36:00 Blanchrad [facility] CBC W/PLT COUNT & AUTO 2019-11-04 05:36:00 BlanchardJennifer garay I [facility] BASIC METABOLIC PANEL (7) 2019-11-03 05:16:00 Blanchard Jennifer Cisneros [facility] MAGNESIUM 2019-11-03 05:16:00 Blanchard [facility] CBC W/PLT COUNT & AUTO 2019-11-03 05:16:00 BlanchardJennifer garay I [facility] ECHOCARDIOGRAM REPORT - 2019-11-02 21:21:05 Provider, Default [facility] REPORT OF PROCEDURE - 2019-11-02 12:32:33 Provider, Default [facility] TRANSESOPHAGEAL ECHO 2019-11-02 11:26:18 Antonia Taylor [facility] BASIC METABOLIC PANEL (7) 2019-11-02 04:59:00 BlanchardJennifer Blayne [facility] MAGNESIUM 2019-11-02 04:59:00 [facility] W/[facility] & AUTO 2019-11-02 04:59:00 Jennifer Blanchard [facility] SARS-COV2/RT-PCR ([facility] & 2019-11-01 10:37:00 [facility] BASIC METABOLIC PANEL (7) 2019-11-01 09:43:00 Blanchard Jennifer Jewellod [facility] MAGNESIUM 2019-11-01 09:43:00 Santo [facility] CBC W/PLT COUNT & AUTO 2019-11-01 09:43:00 Jennifer Blanchard [facility] CARDIOVERSION 2019-10-31 21:58:36 Antonia Taylor [facility] ECHOCARDIOGRAM REPORT - 2019-10-31 21:21:47 Provider, Matti [facility] ECG 12-LEAD 2019-10-31 17:09:07 Unknown, Hl7 Doctor [facility] XR SHOULDER 1 VIEW RIGHT 2019-10-31 12:56:00 Charles Carballo [facility] 2D ECHO W/ DOPPLER 2019-10-31 09:58:50 Charles Carballo [facility] (CW/PW/COLOR) [facility] MR BRAIN WITHOUT IV 2019-10-31 06:51:00 Charles Carballo [facility] LIPID PANEL 2019-10-31 04:55:00 Charles Carballo [facility] BASIC METABOLIC PANEL (7) 2019-10-31 04:55:00 Sarah Romero [facility] CBC W/PLT COUNT & AUTO 2019-10-31 03:33:00 Sarah Romero [facility] TSH/FREE T4 IF INDICATED 2019-10-30 10:45:00 Montserratian, [facility] VITAMIN B12 AND FOLATE 2019-10-30 10:45:00 Montserratian, [facility] T4, FREE 2019-10-30 10:45:00 Montserratian, [facility] CT/CTA CAROTID 2019-10-30 10:39:00 Montserratian, [facility] CTA BRAIN 2019-10-30 10:39:00 Montserratian, [facility] CT CEREBRAL PERFUSION 2019-10-30 10:39:00 Montserratian, [facility] HEMOGLOBIN A1C 2019-10-30 09:48:00 Montserratian, [facility] RPR 2019-10-30 09:48:00 Montserratian, [facility] BASIC METABOLIC PANEL (7) 2019-10-30 08:45:00 Kimani, [facility] PT/APTT 2019-10-30 08:45:00 Kimani, [facility] CREATINE KINASE (CK) 2019-10-30 08:45:00 Kimani, [facility] MAGNESIUM 2019-10-30 08:45:00 Kimani, [facility] CBC W/PLT COUNT & AUTO 2019-10-30 08:45:00 Kimani, [facility] Results Test Description Test Time Test Comments Results Result Comments Source Basic Metabolic Panel 2019-11-05 04:28:00 Test Item Value Reference Range Interpretation Comme nts Sodium (test code = 137 meq/L 394-766 7760-2) Potassium (test code = 4.0 meq/L 3.5-5.1 2823-3) Chloride (test code = 107 meq/L 98-107 5-0) CO2 (test code = 2027-9) 24 meq/L 22-29 BUN (test code = 3094-0) 15 mg/dL 7-21 Creatinine (test code = 0.97 mg/dL 0.57-1.25 0-0) Glucose (test code = 84 mg/dL 70-105 2345-7) Calcium (test code = 8.1 mg/dL 8.4-10.2 L 29509-7) EGFR (test code = 56110-3) 55 mL/min/1.73 sq m ESTIMATED GFR IS NOT ACCURATE CREATININE JOVANI ROSALIND IN PREDICTING GLOMERULAR FILT RATION RATE. ESTIMATED GFR IS NOT APPLICAB LE FOR DIALYSIS PATIEN TS. JUAN LUIS (test code = JUAN LUIS) Varnish Inspector ID - REDDY L Lab Interpretation (test Abnormal code = 91201-5) [facility] 04[facility]28:00 Test Item Value Reference Range Interpretation Comments Magnesium (test code = 1.8 mg/dL 1.6-2.6 02988-3) JUAN LUIS (test code = JUAN LUIS) Varnish Inspector ID - PIJONNIE L Lab Interpretation (test Normal code = 65400-3) [facility] 04:28[facility]00 Test Item Value Reference Range Interpretation Comments MAGNESIUM (BEAKER) (test code = 1.8 mg/dL 1.6-2.6 627) Varnish Inspector ID - REDDY LBASIC METABOLIC [id number] 04:28:00 Test Item Value Reference Range Interpretation Comments SODIUM (BEAKER) 137 meq/L 136-145 (test code = 381) POTASSIUM (BEAKER) 4.0 meq/L 3.5-5.1 (test code = 379) CHLORIDE (BEAKER) 107 meq/L 98-107 (test code = 382) CO2 (BEAKER) (test 24 meq/L 22-29 code = 355) BLOOD UREA NITROGEN 15 mg/dL 7-21 (BEAKER) (test code = 354) CREATININE (BEAKER) 0.97 mg/dL 0.57-1.25 (test code = 358) GLUCOSE RANDOM 84 mg/dL 70-105 (BEAKER) (test code = 652) CALCIUM (BEAKER) 8.1 mg/dL 8.4-10.2 L (test code = 697) EGFR (BEAKER) (test 55 mL/min/1.73 ESTIMA SKYLER GFR IS code = 1092) sq m NOT ACCURATE CREATININE CLEARANCE IN PREDICTING GLOMERULAR FILTRATION RATE . ESTIMATED GFR I S NOT APPLICABLE FOR DIALYSIS PATIEN TS. 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 The left ventricle is chamber size [...] The left ventricle is chamber size (by volindex) is normal (female - LVED vol - 29-61ml/m2). Normal LV wall thickness. All of the LV segments are severely hypokinetic . Estimated LVEF by qualitative assessment is severely reduced (25-29%) . Left Atrium LA size is mildly enlarged (35-41 ml/m2) . Right Ventricle RV chamber size is mildly enlarged . Global RV systolic function is mildly depressed . Right Atrium Right atrium severely dilated. Aortic Valve Mild AoV cusp thickening. Mitral Valve Mild MV leaflet thickening. Tricuspid Valve A trace oftricuspid regurgitation. Unable to estimate peak systolic PA pressure; inadequate TR velocity signal. Pulmonic Valve Normal PV structure and function by limited views and Doppler. Aorta Aortic root size (SInus of Valsalva diameter) is normal . Pericardium No evidence of pericardial effusion. IVC/SVC/PA/PV/Pleural The estimated RA pressure by [...] Mean Gradient: 0.82 mmHg LVOT VTI: 12.77 [facility] + automated [id number] 07:26:00 Test Item Value Reference Range Interpretation Comments WBC (test code = 6690-2) 7.1 3.5- 10.5 K/L RBC (test code = 789-8) 3.33 3.93- 5.22 M/L L MCHC (test code = 786-4) 30.5 32.2- 35.5 GM/DL L Hematocrit (test code = 4544-3) 29.2 % 34.1-44.9 L MCV (test code = 787-2) 87.7 fL 79.4-94.8 MCH (test code = 785-6) 26.7 pg 25.6-32.2 RDW (test code = 788-0) 17.3 % 11.7-14.4 H Platelets (test code = 777-3) 203 150- 450 K/CU MM MPV (test code = 90746-1) 10.6 fL 9.4-12.3 nRBC (test code = 413) 0 0- 0 /100 WBC % Neutros (test code = 429) 55 % % Lymphs (test code = 430) 20 % % Monos (test code = 431) 11 % % Eos (test code = 432) 13 % % Baso (test code = 437) 1 % # Neutros (test code = 670) 3.89 1.56- 6.13 K/L # Lymphs (test code = 414) 1.43 1.18- 3.74 K/L # Monos (test code = 415) 0.80 0.24- 0.36 K/L H # Eos (test code = 416) 0.90 0.04- 0.36 K/L H # Baso (test code = 417) 0.04 0.01- 0.08 K/L Immature Granulocytes-Relative 0 % 0-1 (test code = 2801) Lab Interpretation (test code = Abnormal 44721-8) [facility] W/PLT COUNT & AUTO [id number] 07:26:00 Test Item Value Reference Range Interpretation Comments WHITE BLOOD CELL COUNT (BEAKER) 7.1 K/ L 3.5-10.5 (test code = 775) RED BLOOD CELL COUNT (BEAKER) 3.33 M/ L 3.93-5.22 L (test code = 761) HEMOGLOBIN (BEAKER) (test code = 8.9 GM/DL 11.2-15.7 L 410) HEMATOCRIT (BEAKER) (test code = 29.2 % 34.1-44.9 L 411) MEAN CORPUSCULAR VOLUME (BEAKER) 87.7 fL 79.4-94.8 (test code = 753) MEAN CORPUSCULAR HEMOGLOBIN 26.7 pg 25.6-32.2 (BEAKER) (test code = 751) MEAN CORPUSCULAR HEMOGLOBIN CONC 30.5 GM/DL 32.2-35.5 L (BEAKER) (test code = 752) RED CELL DISTRIBUTION WIDTH 17.3 % 11.7-14.4 H (BEAKER) (test code = 412) PLATELET COUNT (BEAKER) (test 203 K/CU MM 150-450 code = 756) MEAN PLATELET VOLUME (BEAKER) 10.6 fL 9.4-12.3 (test code = 754) NUCLEATED RED BLOOD CELLS 0 /100 WBC 0-0 (BEAKER) (test code = 413) NEUTROPHILS RELATIVE PERCENT 55 % (BEAKER) (test code = 429) LYMPHOCYTES RELATIVE PERCENT 20 % (BEAKER) (test code = 430) MONOCYTES RELATIVE PERCENT 11 % (BEAKER) (test code = 431) EOSINOPHILS RELATIVE PERCENT 13 % (BEAKER) (test code = 432) BASOPHILS RELATIVE PERCENT 1 % (BEAKER) (test code = 437) NEUTROPHILS ABSOLUTE COUNT 3.89 K/ L 1.56-6.13 (BEAKER) (test code = 670) LYMPHOCYTES ABSOLUTE COUNT 1.43 K/ L 1.18-3.74 (BEAKER) (test code = 414) MONOCYTES ABSOLUTE COUNT (BEAKER) 0.80 K/ L 0.24-0.36 H (test code = 415) EOSINOPHILS ABSOLUTE COUNT 0.90 K/ L 0.04-0.36 H (BEAKER) (test code = 416) BASOPHILS ABSOLUTE COUNT (BEAKER) 0.04 K/ L 0.01-0.08 (test code = 417) IMMATURE GRANULOCYTES-RELATIVE 0 % 0-1 PERCENT (BEAKER) (test code = 2801) [id number] 06:54:00 Test Item Value Reference Range Interpretation Comments MAGNESIUM (BEAKER) (test code = 1.9 mg/dL 1.6-2.6 627) Varnish Inspector ID - BERNADINE WBASIC METABOLIC [id number] 06:54:00 Test Item Value Reference Range Interpretation Comments SODIUM (BEAKER) 135 meq/L 136-145 L (test code = 381) POTASSIUM (BEAKER) 3.9 meq/L 3.5-5.1 (test code = 379) CHLORIDE (BEAKER) 107 meq/L 98-107 (test code = 382) CO2 (BEAKER) (test 23 meq/L 22-29 code = 355) BLOOD UREA NITROGEN 16 mg/dL 7-21 (BEAKER) (test code = 354) CREATININE (BEAKER) 0.95 mg/dL 0.57-1.25 (test code = 358) GLUCOSE RANDOM 75 mg/dL 70-105 (BEAKER) (test code = 652) CALCIUM (BEAKER) 8.1 mg/dL 8.4-10.2 L (test code = 697) EGFR (BEAKER) (test 57 mL/min/1.73 ESTIMA SKYLER GFR IS code = 1092) sq m NOT ACCURATE CREATININE CLEARANCE IN PREDICTING GLOMERULAR FILTRATION RATE . ESTIMATED GFR I S NOT APPLICABLE FOR DIALYSIS PATIEN TS. Varnish Inspector ID - BERNADINE [id number] 06:29:00 Test Item Value Reference Range Interpretation Comments MAGNESIUM (BEAKER) (test code = 1.9 mg/dL 1.6-2.6 627) Varnish Inspector ID - REDDY LBASIC METABOLIC [id number] 06:29:00 Test Item Value Reference Range Interpretation Comments SODIUM (BEAKER) 136 meq/L 136-145 (test code = 381) POTASSIUM (BEAKER) 4.2 meq/L 3.5-5.1 (test code = 379) CHLORIDE (BEAKER) 109 meq/L 98-107 H (test code = 382) CO2 (BEAKER) (test 23 meq/L 22-29 code = 355) BLOOD UREA NITROGEN 20 mg/dL 7-21 (BEAKER) (test code = 354) CREATININE (BEAKER) 1.03 mg/dL 0.57-1.25 (test code = 358) GLUCOSE RANDOM 73 mg/dL 70-105 (BEAKER) (test code = 652) CALCIUM (BEAKER) 8.9 mg/dL 8.4-10.2 (test code = 697) EGFR (BEAKER) (test 52 mL/min/1.73 ESTIMA SKYLER GFR IS code = 1092) sq m NOT ACCURATE CREATININE CLEARANCE IN PREDICTING GLOMERULAR FILTRATION RATE . ESTIMATED GFR I S NOT APPLICABLE FOR DIALYSIS PATIEN TS. Varnish Inspector ID - REDDY LCBC W/PLT COUNT & AUTO [id number] 06:08:00 Test Item Value Reference Range Interpretation Comments WHITE BLOOD CELL COUNT (BEAKER) 6.8 K/ L 3.5-10.5 (test code = 775) RED BLOOD CELL COUNT (BEAKER) 3.14 M/ L 3.93-5.22 L (test code = 761) HEMOGLOBIN (BEAKER) (test code = 8.6 GM/DL 11.2-15.7 L 410) HEMATOCRIT (BEAKER) (test code = 27.9 % 34.1-44.9 L 411) MEAN CORPUSCULAR VOLUME (BEAKER) 88.9 fL 79.4-94.8 (test code = 753) MEAN CORPUSCULAR HEMOGLOBIN 27.4 pg 25.6-32.2 (BEAKER) (test code = 751) MEAN CORPUSCULAR HEMOGLOBIN CONC 30.8 GM/DL 32.2-35.5 L (BEAKER) (test code = 752) RED CELL DISTRIBUTION WIDTH 17.8 % 11.7-14.4 H (BEAKER) (test code = 412) PLATELET COUNT (BEAKER) (test 182 K/CU MM 150-450 code = 756) MEAN PLATELET VOLUME (BEAKER) 10.4 fL 9.4-12.3 (test code = 754) NUCLEATED RED BLOOD CELLS 0 /100 WBC 0-0 (BEAKER) (test code = 413) NEUTROPHILS RELATIVE PERCENT 55 % (BEAKER) (test code = 429) LYMPHOCYTES RELATIVE PERCENT 22 % (BEAKER) (test code = 430) MONOCYTES RELATIVE PERCENT 12 % (BEAKER) (test code = 431) EOSINOPHILS RELATIVE PERCENT 11 % (BEAKER) (test code = 432) BASOPHILS RELATIVE PERCENT 0 % (BEAKER) (test code = 437) NEUTROPHILS ABSOLUTE COUNT 3.76 K/ L 1.56-6.13 (BEAKER) (test code = 670) LYMPHOCYTES ABSOLUTE COUNT 1.48 K/ L 1.18-3.74 (BEAKER) (test code = 414) MONOCYTES ABSOLUTE COUNT (BEAKER) 0.79 K/ L 0.24-0.36 H (test code = 415) EOSINOPHILS ABSOLUTE COUNT 0.73 K/ L 0.04-0.36 H (BEAKER) (test code = 416) BASOPHILS ABSOLUTE COUNT (BEAKER) 0.03 K/ L 0.01-0.08 (test code = 417) IMMATURE GRANULOCYTES-RELATIVE 0 % 0-1 PERCENT (BEAKER) (test code = 2801) Transesophageal [id number] 13:55:50Ejection FractionSLE ECHO HEARTLAB MKCKESSON CPACSInterface, External Ris In - 11/02/2019 1:55 PM C DTTransesophageal Echocardiography Report (JULIO CESAR) Demographics Patient Name ANJELICA LEE Date of Study 11/02/2019 Gender Female Visit Number [id number] Race Room Number 2219 Number Date of 1940 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 . Type of Anesthesia: See below Summary 1. Normal left ventricular chamber size. Normal wall thickness. Global LV systolic function moderatelyto severely reduced . 2. There is spontaneous echo contrast (smoke) with some partially formed echomaterial (sludge) in the left atrial appendage. LA is enlarged but severity assessment is unreliabledue to known JULIO CESAR sector size limitation. 3. RV chamber size appears normal by limited views . Global RV systolic function is depressed . 4. No significant valvular abnormality No cardioversion performed due to sludge in LA appendage, recent CVA and rate controlled atrial fibrillation. Signature -- Findings Rhythm/BP Atrial fibrillation with controlled ventricular response. Left Normal left ventricular chamber size. Normal wall [...] views . Ventricle Global RV systolic function isdepressed . Atrial Septum The interatrial septum is adequately visualized. Normal inte ratrial septum by available views. No interatrial shunt by color Doppler. Aortic Valve Normal AoV structure and function. Trileaflet valve that opens well. Mitral Valve Mild MV leaflet thickening. Mild mitral regurgitation. Tricuspid TV structure is normal. Valve A trace of tricuspid regurgitation. Unable to estimate peak systolic PA pressure; inadequate TR velocity signal. Pulmonic A trace of pulmonary regurgitation. Valve Normal PV structure. Aorta Aortic root size (SInus of Valsalva diameter) is normal . Proximal ascending aorta size is normal . Grade 2 plaque (extensive intimal thickening) in the descending thoracic aorta . Transverse aorta was not well visualized. Pericardium No significant pericardial effusion is visualized.[facility] SARS-CoV2/RT-PCR ([facility] Labs)2019-11-02 10:14:00 Test Item Value Reference Range Interpretation Comments SARS-COV2/RT-PCR (test code = Negative Not Detected, Negative 53950-4) SARS-COV-2 PERFORMING LAB CPL (test code = 45890-1) [facility])2019-11-02 10:14:00 Test Item Value Reference Range Interpretation Comments SARS-COV2/RT-PCR (test code = Negative Not Detected, Negative 2510980) SARS-COV-2 PERFORMING LAB CPL (test code = 8461489) [id number] 07:10:00 Test Item Value Reference Range Interpretation Comments MAGNESIUM (BEAKER) (test code = 1.9 mg/dL 1.6-2.6 627) Varnish Inspector ID - EMERSONBASIC METABOLIC [id number] 07:10:00 Test Item Value Reference Range Interpretation Comments SODIUM (BEAKER) 135 meq/L 136-145 L (test code = 381) POTASSIUM (BEAKER) 4.3 meq/L 3.5-5.1 (test code = 379) CHLORIDE (BEAKER) 108 meq/L 98-107 H (test code = 382) CO2 (BEAKER) (test 21 meq/L 22-29 L code = 355) BLOOD UREA NITROGEN 22 mg/dL 7-21 H (BEAKER) (test code = 354) CREATININE (BEAKER) 1.12 mg/dL 0.57-1.25 (test code = 358) GLUCOSE RANDOM 76 mg/dL 70-105 (BEAKER) (test code = 652) CALCIUM (BEAKER) 8.0 mg/dL 8.4-10.2 L (test code = 697) EGFR (BEAKER) (test 47 mL/min/1.73 ESTIMA SKYLER GFR IS code = 1092) sq m NOT ACCURATE CREATININE CLEARANCE IN PREDICTING GLOMERULAR FILTRATION RATE . ESTIMATED GFR I S NOT APPLICABLE FOR DIALYSIS PATIEN TS. Varnish Inspector ID - EMERSONCBC W/PLT COUNT & AUTO [id number] 05:23:00 Test Item Value Reference Range Interpretation Comments WHITE BLOOD CELL COUNT (BEAKER) 7.1 K/ L 3.5-10.5 (test code = 775) RED BLOOD CELL COUNT (BEAKER) 3.22 M/ L 3.93-5.22 L (test code = 761) HEMOGLOBIN (BEAKER) (test code = 8.6 GM/DL 11.2-15.7 L 410) HEMATOCRIT (BEAKER) (test code = 28.1 % 34.1-44.9 L 411) MEAN CORPUSCULAR VOLUME (BEAKER) 87.3 fL 79.4-94.8 (test code = 753) MEAN CORPUSCULAR HEMOGLOBIN 26.7 pg 25.6-32.2 (BEAKER) (test code = 751) MEAN CORPUSCULAR HEMOGLOBIN CONC 30.6 GM/DL 32.2-35.5 L (BEAKER) (test code = 752) RED CELL DISTRIBUTION WIDTH 17.4 % 11.7-14.4 H (BEAKER) (test code = 412) PLATELET COUNT (BEAKER) (test 225 K/CU MM 150-450 code = 756) MEAN PLATELET VOLUME (BEAKER) 10.1 fL 9.4-12.3 (test code = 754) NUCLEATED RED BLOOD CELLS 0 /100 WBC 0-0 (BEAKER) (test code = 413) NEUTROPHILS RELATIVE PERCENT 48 % (BEAKER) (test code = 429) LYMPHOCYTES RELATIVE PERCENT 25 % (BEAKER) (test code = 430) MONOCYTES RELATIVE PERCENT 14 % (BEAKER) (test code = 431) EOSINOPHILS RELATIVE PERCENT 13 % (BEAKER) (test code = 432) BASOPHILS RELATIVE PERCENT 1 % (BEAKER) (test code = 437) NEUTROPHILS ABSOLUTE COUNT 3.44 K/ L 1.56-6.13 (BEAKER) (test code = 670) LYMPHOCYTES ABSOLUTE COUNT 1.75 K/ L 1.18-3.74 (BEAKER) (test code = 414) MONOCYTES ABSOLUTE COUNT (BEAKER) 0.99 K/ L 0.24-0.36 H (test code = 415) EOSINOPHILS ABSOLUTE COUNT 0.89 K/ L 0.04-0.36 H (BEAKER) (test code = 416) BASOPHILS ABSOLUTE COUNT (BEAKER) 0.04 K/ L 0.01-0.08 (test code = 417) IMMATURE GRANULOCYTES-RELATIVE 0 % 0-1 PERCENT (BEAKER) (test code = 2801) [id number] 10:15:00 Test Item Value Reference Range Interpretation Comments MAGNESIUM (BEAKER) (test code = 2.0 mg/dL 1.6-2.6 627) Varnish Inspector ID - AAHAMIDBASIC METABOLIC [id number] 10:15:00 Test Item Value Reference Range Interpretation Comments SODIUM (BEAKER) 135 meq/L 136-145 L (test code = 381) POTASSIUM (BEAKER) 4.5 meq/L 3.5-5.1 (test code = 379) CHLORIDE (BEAKER) 106 meq/L 98-107 (test code = 382) CO2 (BEAKER) (test 24 meq/L 22-29 code = 355) BLOOD UREA NITROGEN 21 mg/dL 7-21 (BEAKER) (test code = 354) CREATININE (BEAKER) 1.18 mg/dL 0.57-1.25 (test code = 358) GLUCOSE RANDOM 67 mg/dL 70-105 L (BEAKER) (test code = 652) CALCIUM (BEAKER) 8.4 mg/dL 8.4-10.2 (test code = 697) EGFR (BEAKER) (test 44 mL/min/1.73 ESTIMA SKYLER GFR IS code = 1092) sq m NOT ACCURATE CREATININE CLEARANCE IN PREDICTING GLOMERULAR FILTRATION RATE . ESTIMATED GFR I S NOT APPLICABLE FOR DIALYSIS PATIEN TS. Varnish Inspector ID - AAHAMIDCBC W/PLT COUNT & AUTO [id number] 10:08:00 Test Item Value Reference Range Interpretation Comments WHITE BLOOD CELL COUNT (BEAKER) 7.0 K/ L 3.5-10.5 (test code = 775) RED BLOOD CELL COUNT (BEAKER) 3.33 M/ L 3.93-5.22 L (test code = 761) HEMOGLOBIN (BEAKER) (test code = 9.0 GM/DL 11.2-15.7 L 410) HEMATOCRIT (BEAKER) (test code = 29.6 % 34.1-44.9 L 411) MEAN CORPUSCULAR VOLUME (BEAKER) 88.9 fL 79.4-94.8 (test code = 753) MEAN CORPUSCULAR HEMOGLOBIN 27.0 pg 25.6-32.2 (BEAKER) (test code = 751) MEAN CORPUSCULAR HEMOGLOBIN CONC 30.4 GM/DL 32.2-35.5 L (BEAKER) (test code = 752) RED CELL DISTRIBUTION WIDTH 17.7 % 11.7-14.4 H (BEAKER) (test code = 412) PLATELET COUNT (BEAKER) (test 246 K/CU MM 150-450 code = 756) MEAN PLATELET VOLUME (BEAKER) 10.7 fL 9.4-12.3 (test code = 754) NUCLEATED RED BLOOD CELLS 0 /100 WBC 0-0 (BEAKER) (test code = 413) NEUTROPHILS RELATIVE PERCENT 54 % (BEAKER) (test code = 429) LYMPHOCYTES RELATIVE PERCENT 21 % (BEAKER) (test code = 430) MONOCYTES RELATIVE PERCENT 12 % (BEAKER) (test code = 431) EOSINOPHILS RELATIVE PERCENT 11 % (BEAKER) (test code = 432) BASOPHILS RELATIVE PERCENT 1 % (BEAKER) (test code = 437) NEUTROPHILS ABSOLUTE COUNT 3.74 K/ L 1.56-6.13 (BEAKER) (test code = 670) LYMPHOCYTES ABSOLUTE COUNT 1.49 K/ L 1.18-3.74 (BEAKER) (test code = 414) MONOCYTES ABSOLUTE COUNT (BEAKER) 0.85 K/ L 0.24-0.36 H (test code = 415) EOSINOPHILS ABSOLUTE COUNT 0.77 K/ L 0.04-0.36 H (BEAKER) (test code = 416) BASOPHILS ABSOLUTE COUNT (BEAKER) 0.06 K/ L 0.01-0.08 (test code = 417) IMMATURE GRANULOCYTES-RELATIVE 1 % 0-1 PERCENT (BEAKER) (test code = 2801) ECG 12 [id number] 07:31:26Interface, External Ris In - 11/01/2019 7:31 AM CDTVentricular Rate 120 BPMAtrial Rate 127 BPMQRS Duration 78 msQ-T Interval 342 msQTC Calculation(Bazett) 483 msR [place] -19 degreesT [place] -66 degreesAtrial fibrillation with rapid ventricular responseSeptal infarct , age undeterminedNonspecific ST and Twave abnormalityAbnormal ECGNo previous ECGs availableConfirmed by MD Mcdowell Roberto ([id number])on 11/01/2019 7:31:18 AM [facility]2D Echo W/Doppler(CW/PW/Color)2019-10-31 16:34:28 Ejection FractionSLEH ECHO HEARTLAB MKCKESSON CPACSInterface, External Ris In - 10/31/2019 4:34 PM CDTTransthoracic Echocardiography Report (TTE) Demographics Patient Name ANJELICA LEE Date ofStudy 10/31/2019 Gender Female Visit Number [id number] Race Room Number 2219 Number Date of 1940 Referring Araseli Harman Physician 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 Normal LV chamber size. Severe global hypokinesis. Severely depressed EF (LVEF <20% qualitatively). Contrast was not used, but LV thrombus is not visualized on available images. 2. IV saline contrast injection was negative for a PFO (patent foramen ovale) at rest and post Valsalva . 3. No significantvalve disease detected. 4. No significant pericardial effusion is visualized. Previous Study No prior studies available for comparison. Signature Findings Left Ventricle Normal left ventricular chamber size. Normal wall thickness. Severe global hypokinesis. Severely depressed EF (LVEF <20% qualitatively). Grade 3 diastolic dysfunction (marked elevated LA pressure). Lef t Atrium LA size is mildly enlarged . Right Ventricle The right ventricular chamber size is mildly dilated and systolic function is within normal limits. Right Atrium RA size is moderately dilated. Atrial Septum IV saline contrast injection was negative for a PFO (patent foramen ovale) at restand post Valsalva . Aortic Valve The aortic valve leaflets appear mildly sclerotic. Normal AoV function. Mitral Valve Mild MR. Normal MV structure and function. Tricuspid Valve A trace of tricuspid regurgitation. Estimated peak systolic PA pressure is 20-25 mmHg . Pericardium No significant pericardial effusion isvisualized. IVC/SVC/PA/PV/Pleural The estimated RA pressure by IVC [...] Gradient: 2.01 mmHg AV Area (continuity): 3.15 cm^2AV VTI: 15.84 cm AV DVI: 0.79 LVOT Peak Velocity: 0.71 m/s Peak Gradient: 2.07 mmHg Mean Velocity: 0.5 m/s Mean Gradient: 1.18 mmHg LVOT Diameter: 2.26 cm LVOT VTI: 12.46 cm LVOT Area: 4.01 cm^2 LVOT SV:49.96 ml LVOT CO: 5.2 l/min LVOT CI: 3.35 l/min/m^2 Tricuspid Valve TR Velocity: 1.99 m/s TR Gradient: 15.9 mmHgCHI [facility] CenterRAD, SHOULDER, 1 VIEW, [id number] 13:31:00Reason for exam:->exterior bruisingShould this be performed at the bedside?->YesFINAL REPORT TECHNIQUE: Single internal rotation view of the right shoulder dated 10/31/2019 HISTORY: Exterior bruising COMPARISON: None. FINDINGS:No acute fracture or dislocation seen in the single view provided. Hill-Sachs deformity is seen in the humeral head. Bones are osteopenic.. Degenerative changes are seen in the acromioclavicular joint. No bone erosion or soft tissue nodule seen. No radiodense foreign body or subcutaneous emphysema. IMPRESSION:No acute fracture or dislocation in the image provided. Signed: Navneet Hardeneport Verified Date/Time: 10/31/2019 13:31:59 Reading Location: [address] Consult Reading Room XR shoulder 1 view [id number] 13:31:00Interface, External Ris In - 10/31/2019 1:34 PM CDTFINAL REPORT TECHNIQUE: Single internal rotation view of the right shoulder dated 10/31/2019 HISTORY: Exterior bruising COMPARISON: None. FINDINGS:No acute fracture or dislocation seen in the single view provided. Hill-Sachs deformity is seen in the humeral head. Bones are osteopenic.. Degenerative changes are seen in the acromioclavicular joint. No bone erosion or soft tissue nodule seen. No radiodense foreign body or subcutaneous emphysema. IMPRESSION:No acute fracture or dislocation in the image provided. Signed: Navneet Harden MDReport Verified Date/Time: 10/31/2019 13:31:59 Reading Location: [address] Consult [facility]AST 2019-10-31 07:37:00FINAL REPORT MRI Brain without contrast Clinical History: Stroke, follow up Technique: MRI of the brain utilizing axial T2, FLAIR, GRE, DWI; sagittal and coronal T1-weighted images. Comparisons: CT 10/30/2019 Findings: There is small-volume acute infarction of the left frontal operculum and insula. There is no intracranial hemorrhage. There is a chronic infarct of the left parietal lobe. There is a chronic lacunar infarct of the right thalamus. There is moderate periventricularand subcortical white matter T2 hyperintensity, which is nonspecific but compatible with chronic microvascular ischemic change. There is generalized parenchymal volume loss without hydrocephalus, midline shift, or apparent mass effect. There are no extra-axial fluid collections. The craniocervical junction is preserved. The major intracranial flow-voids appear patent. There is right cataract surgery. IMPRESSION: Small acute infarction of the left frontal operculum and insula, without hemorrhage. Chronic left parietal lobe infarction. Chronic lacunar infarct right thalamus. Signed: Crystal Perry MDReport Verified Date/Time: 10/31/2019 07:37:08 Reading Location: [facility] C013V Neuro Reading Room MR brain without IV [id number] 07:37:00Interface, External Ris In - 10/31/2019 7:40 AM CDTFINAL REPORT MRI Brain without contrast Clinical History: Stroke, follow up Technique: MRI of the brain utilizing axial T2, FLAIR, GRE, DWI; sagittal and coronal T1-weighted images. Comparisons: CT 10/30/2019 Findings: There is small-volume acute infarction of the left frontal operculum and insula. There is no intracranial hemorrhage. There is a chronic infarct of the left parietal lobe. There is a chronic lacunar infarct of the right thalamus. There is moderate periventricular and subcortical white matter T2 hyperintensity, which is nonspecific but compatible with chronic microvascular ischemic change. There is generalized parenchymal volume loss without hydrocephalus, midline shift, or apparent mass effect. There are no ex tra-axial fluid collections. The craniocervical junction is preserved. The major intracranial flow-voids appear patent. There is right cataract surgery. IMPRESSION: Small acute infarction of the left frontal operculum and insula, without hemorrhage. Chronic left parietal lobe infarction. Chronic lacunar infarct right thalamus. Signed: Crystal Perry MDReport Verified Date/Time: 10/31/2019 07:37:08 Reading Location: [address] Neuro Reading Room [facility] CenterFasting lipid [id number] 06:43:00 Test Item Value Reference Range Interpretation Comments Triglycerides (test 50 mg/dL code = 2571-8) Cholesterol (test code 100 mg/dL = 2093-3) HDL (test code = 39 mg/dL 5-9) LDL Calculated (test 51 mg/dL code = 60893-6) JUAN LUIS (test code = JUAN LUIS) Triglyceride Reference Range: Low Risk <150 Borderline 150-199 High Risk 200-499 Very High Risk >=500 Cholesterol Reference Range: Low Risk <200 Borderline 200-239 High Risk >240 HDL Cholesterol Reference Range: Low Risk >=60 High Risk <40 LDL Cholesterol Reference Range: Optimal <100 Near Optimal 100-129 Borderline 130-159 High 160-189 Very High >=190 Varnish Inspector ID - LAOperator ID - DB [facility] CenterLIPID [id number] 06:43:00 Test Item Value Reference Range Interpretation Comments TRIGLYCERIDES (BEAKER) (test code = 50 mg/dL 540) CHOLESTEROL (BEAKER) (test code = 100 mg/dL 631) HDL CHOLESTEROL (BEAKER) (test code 39 mg/dL = 976) LDL CHOLESTEROL CALCULATED (BEAKER) 51 mg/dL (test code = 633) Triglyceride Reference Range: Low Risk <150 Borderline 150-199 High Risk 200-499 Very High Risk >=500Cholesterol Reference Range: Low Risk <200 Borderline 200-239 High Risk >240HDL Cholesterol Reference Range: Low Risk >=60 High Risk <40LDL Cholesterol Reference Range: Optimal <100 Near Optimal 100-129 Borderline 130-159 High 160-189 Very High >=190 Varnish Inspector ID - LAOperator ID - DBBASIC METABOLIC [id number] 05:34:00 Test Item Value Reference Range Interpretation Comments SODIUM (BEAKER) 137 meq/L 136-145 (test code = 381) POTASSIUM (BEAKER) 5.1 meq/L 3.5-5.1 (test code = 379) CHLORIDE (BEAKER) 110 meq/L 98-107 H (test code = 382) CO2 (BEAKER) (test 23 meq/L 22-29 code = 355) BLOOD UREA NITROGEN 24 mg/dL 7-21 H (BEAKER) (test code = 354) CREATININE (BEAKER) 1.00 mg/dL 0.57-1.25 (test code = 358) GLUCOSE RANDOM 60 mg/dL 70-105 L (BEAKER) (test code = 652) CALCIUM (BEAKER) 8.4 mg/dL 8.4-10.2 (test code = 697) EGFR (BEAKER) (test 53 mL/min/1.73 ESTIMA SKYLER GFR IS code = 1092) sq m NOT ACCURATE CREATININE CLEARANCE IN PREDICTING GLOMERULAR FILTRATION RATE . ESTIMATED GFR I S NOT APPLICABLE FOR DIALYSIS PATIEN TS. Varnish Inspector ID - LACBC W/PLT COUNT & AUTO [id number] 04:09:00 Test Item Value Reference Range Interpretation Comments WHITE BLOOD CELL COUNT (BEAKER) 7.2 K/ L 3.5-10.5 (test code = 775) RED BLOOD CELL COUNT (BEAKER) 3.35 M/ L 3.93-5.22 L (test code = 761) HEMOGLOBIN (BEAKER) (test code = 9.1 GM/DL 11.2-15.7 L 410) HEMATOCRIT (BEAKER) (test code = 30.1 % 34.1-44.9 L 411) MEAN CORPUSCULAR VOLUME (BEAKER) 89.9 fL 79.4-94.8 (test code = 753) MEAN CORPUSCULAR HEMOGLOBIN 27.2 pg 25.6-32.2 (BEAKER) (test code = 751) MEAN CORPUSCULAR HEMOGLOBIN CONC 30.2 GM/DL 32.2-35.5 L (BEAKER) (test code = 752) RED CELL DISTRIBUTION WIDTH 18.9 % 11.7-14.4 H (BEAKER) (test code = 412) PLATELET COUNT (BEAKER) (test 217 K/CU MM 150-450 code = 756) MEAN PLATELET VOLUME (BEAKER) 11.9 fL 9.4-12.3 (test code = 754) NUCLEATED RED BLOOD CELLS 0 /100 WBC 0-0 (BEAKER) (test code = 413) NEUTROPHILS RELATIVE PERCENT 51 % (BEAKER) (test code = 429) LYMPHOCYTES RELATIVE PERCENT 26 % (BEAKER) (test code = 430) MONOCYTES RELATIVE PERCENT 11 % (BEAKER) (test code = 431) EOSINOPHILS RELATIVE PERCENT 10 % (BEAKER) (test code = 432) BASOPHILS RELATIVE PERCENT 1 % (BEAKER) (test code = 437) NEUTROPHILS ABSOLUTE COUNT 3.70 K/ L 1.56-6.13 (BEAKER) (test code = 670) LYMPHOCYTES ABSOLUTE COUNT 1.85 K/ L 1.18-3.74 (BEAKER) (test code = 414) MONOCYTES ABSOLUTE COUNT (BEAKER) 0.82 K/ L 0.24-0.36 H (test code = 415) EOSINOPHILS ABSOLUTE COUNT 0.73 K/ L 0.04-0.36 H (BEAKER) (test code = 416) BASOPHILS ABSOLUTE COUNT (BEAKER) 0.07 K/ L 0.01-0.08 (test code = 417) IMMATURE GRANULOCYTES-RELATIVE 0 % 0-1 PERCENT (BEAKER) (test code = 2801) T4, [id number] 13:21:00 Test Item Value Reference Range Interpretation Comments Free T4 (test code = 0.74 ng/dL 0.7-1.48 3024-7) JUAN LUIS (test code = JUAN LUIS) Varnish Inspector ID - NTP Lab Interpretation (test Normal code = 76801-1) [facility] CenterT4, [id number] 13:21:00 Test Item Value Reference Range Interpretation Comments FREE T4 (BEAKER) (test code = 655) 0.74 ng/dL 0.70-1.48 Varnish Inspector ID - NTPTSH/Free T4 If [id number] 12:45:00 Test Item Value Reference Range Interpretation Comments TSH (test code = 7.461 0.350- 4.940 uIU/mL H 00208-4) JUAN LUIS (test code = JUAN LUIS) Varnish Inspector ID - NTP Lab Interpretation (test Abnormal code = 33747-6) [facility] CenterVitamin B12 and [id number] 12:45:00 Test Item Value Reference Range Interpretation Comments Vitamin B12 (test code = 716 pg/mL 798-734 0457-9) Folate (test code = 2284-8) 35.30 ng/mL >=7.00 JUAN LUIS (test code = JUAN LUIS) Varnish Inspector ID - NTP Lab Interpretation (test Normal code = 61255-5) [facility] CenterTSH/FREE T4 IF [id number] 12:45:00 Test Item Value Reference Range Interpretation Comments THYROID STIMULATING HORMONE 7.461 uIU/mL 0.350-4.940 H (BEAKER) (test code = 772) Varnish Inspector ID - NTPVITAMIN B12 AND [id number] 12:45:00 Test Item Value Reference Range Interpretation Comments VITAMIN B12 (BEAKER) (test code = 716 pg/mL 213-816 774) FOLATE (BEAKER) (test code = 362) 35.30 ng/mL >=7.00 Varnish Inspector ID - NTPCT, CAROTID, [id number] 11:01:00FINAL REPORT CLINICAL HISTORY: Neuro deficit, acute, stroke suspected TECHNIQUE: Initially, noncontrast head CT images were performed. Contiguous contrast- enhanced axial images through the neck followed by axial images through the head with coronal and sagittal reformations to assess the arterial circulation. 3-D reconstructions were performed using a volume rendered technique separately on a workstation. CT perfusion was also performed with data post processing generated by [employer] software. This exam was performed according to the departmental dose optimization program which includes automated exposure control, adjustment of the mA and/or kV according to the patient size, and/or use of an iterative reconstruction technique. COMPARISON: None FINDINGS: There is no CT evidence of acute infarct or hemorrhage. There is periventricular and subcortical white matter hypodensity which is nonspecific but compatible with chronic microvascular ischemic change. There are atheroscleroticcalcifications of the intracranial circulation. There is generalized parenchymal volume loss without hydrocephalus, midline shift, or apparent mass effect. The CT angiogram images of the head reveal noevidence of large vessel occlusion. There is multifocal intracranial atherosclerotic disease. No aneurysms are seen. The major intradural venous sinuses are patent. There is a 70% stenosis of the proximal right internal carotid artery by NASCET criteria. There is a 50% stenosis of the proximal left internal carotid artery by NASCET criteria. 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 There is severe stenosis of the origin of the right vertebral artery which is otherwise patent. CT perfusion data: Relative cerebral blood flow <30%: 0 cc. TMax >6s: 31 cc in the left middle cerebral artery distribution.Mismatch volume: 31 ccMismatch ratio: N/A There are dorsal spondylitic changes in the cervicalspine. There are scattered subcentimeter lymph nodes in the neck. There is biapical emphysematous disease. IMPRESSION: No CT evidence of acute infarct or hemorrhage. CT perfusion data as above. No evidence for a [place] large vessel occlusion. 70% stenosis proximal right internal carotid artery by NASCET criteria. 50% stenosis proximal left internal carotid artery by NASCET criteria. Occluded left vertebral artery origin. Severe right vertebral artery origin stenosis. The findings were discussed with the critical care neurologist at approximately 10:50 AM. Signed: Crystal Perry MDReportVerified Date/Time: 10/30/2019 11:01:04 Reading Location: [address] Neuro Reading Room Elect [facility] signed by: CRYSTAL PERRY M.D. on 10/30/2019 11:01 [facility], CTAIO [id number] 11:01:00FINAL REPORT CLINICAL HISTORY: Neuro deficit, acute, stroke suspected TECHNIQUE: Initially, noncontrast head CT images were performed. Contiguous contrast-enhanced axial images through the neck followed by axial images through the head with coronal and sagittal reformations to assess the arterial circulation. 3-D reconstructions were performed using a volume rendered technique separately on a workstation. CT perfusion was also performed with data post processing generated by [employer] software. This exam was performed according to the departmental dose optimization program which includes automated exposure control, adjustment of the mA and/or kV according to the patient size, and/or use of an iterative reconstruction technique. COMPARISON: None FINDINGS: There is no CT evidence of acute infarct or hemorrhage. There is periventricular and subcortical white matter hypodensity which is nonspecific but compatible with chronic microvascular ischemic change. There are atheroscleroticcalcifications of the intracranial circulation. There is generalized parenchymal volume loss without hydrocephalus, midline shift, or apparent mass effect. The CT angiogram images of the head reveal noevidence of large vessel occlusion. There is multifocal intracranial atherosclerotic disease. No aneurysms are seen. The major intradural venous sinuses are patent. There is a 70% stenosis of the proximal right internal carotid artery by NASCET criteria. There is a 50% stenosis of the proximal left internal carotid artery by NASCET criteria. 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 There is severe stenosis of the origin of the right vertebral artery which is otherwise patent. CT perfusion data: Relative cerebral blood flow <30%: 0 cc. TMax >6s: 31 cc in the left middle cerebral artery distribution.Mismatch volume: 31 ccMismatch ratio: N/A There are dorsal spondylitic changes in the cervicalspine. There are scattered subcentimeter lymph nodes in the neck. There is biapical emphysematous disease. IMPRESSION: No CT evidence of acute infarct or hemorrhage. CT perfusion data as above. No evidence for a [place] large vessel occlusion. 70% stenosis proximal right internal carotid artery by NASCET criteria. 50% stenosis proximal left internal carotid artery by NASCET criteria. Occluded left vertebral artery origin. Severe right vertebral artery origin stenosis. The findings were discussed with the critical care neurologist at approximately 10:50 AM. Signed: Crystal Perry MDReportVerified Date/Time: 10/30/2019 11:01:04 Reading Location: [address] Neuro Reading Room Elect ronically signed by: CRYSTAL PERRY M.D. on 10/30/2019 11:01 [facility] [place], CEREBRAL PERFUSION [id number] 11:01:00FINAL REPORT CLINICAL HISTORY: Neuro deficit, acute, stroke suspected TECHNIQUE: Initially, noncontrast head CT images were performed. Contiguous contrast-enhanced axial images through the neck followed by axial images through the head with coronal and sagittal reformations to assess the arterial circulation. 3-D reconstructions were performed using a volume rendered technique separately on a workstation. CT perfusion was also performed with data post processing generated by [employer] software. This exam was performed according to the departmental dose optimization program which includes automated exposure control, adjustment of the mA and/or kV according to the patient size, and/or use of an iterative reconstruction technique. COMPARISON: None FINDINGS: There is no CT evidence of acute infarct or hemorrhage. There is periventricular and subcortical white matter hypodensity which is nonspecific but compatible with chronic microvascular ischemic change. There are atheroscleroticcalcifications of the intracranial circulation. There is generalized parenchymal volume loss without hydrocephalus, midline shift, or apparent mass effect. The CT angiogram images of the head reveal noevidence of large vessel occlusion. There is multifocal intracranial atherosclerotic disease. No aneurysms are seen. The major intradural venous sinuses are patent. There is a 70% stenosis of the proximal right internal carotid artery by NASCET criteria. There is a 50% stenosis of the proximal left internal carotid artery by NASCET criteria. 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 There is severe stenosis of the origin of the right vertebral artery which is otherwise patent. CT perfusion data: Relative cerebral blood flow <30%: 0 cc. TMax >6s: 31 cc in the left middle cerebral artery distribution.Mismatch volume: 31 ccMismatch ratio: N/A There are dorsal spondylitic changes in the cervicalspine. There are scattered subcentimeter lymph nodes in the neck. There is biapical emphysematous disease. IMPRESSION: No CT evidence of acute infarct or hemorrhage. CT perfusion data as above. No evidence for a red cliff of [place] large vessel occlusion. 70% stenosis proximal right internal carotid artery by NASCET criteria. 50% stenosis proximal left internal carotid artery by NASCET criteria. Occluded left vertebral artery origin. Severe right vertebral artery origin stenosis. The findings were discussed with the critical care neurologist at approximately 10:50 AM. Signed: Crystal Perry MDReportVerified Date/Time: 10/30/2019 11:01:04 Reading Location: [facility] C013V Neuro Reading Room Elect ronically signed by: CRYSTAL PERRY M.D. on 10/30/2019 11:01 AMCTA brain 2019-10-30 11:01:00Interface, External Ris In - 10/30/2019 11:03 AM CDTFINAL REPORT CLINICAL HISTORY: Neuro deficit, acute, stroke suspected TECHNIQUE: Initially, noncontrast head CT images were performed. Contiguous contrast-enhanced axial images through the neck followed by axial images through the head with coronal and sagittal reformations to assess the arterial circulation. 3-D reconstructions were performed using a volume rendered technique separately on a workstation. CT perfusion was also performed with data post processing generated by [employer] software. This exam was performed according tot departmental dose optimization program which includes automated exposure control, adjustment of the mA and/or kV according to the patient size, and/or use of an iterative reconstruction technique. COMPARISON: None FINDINGS: There is no CT evidence of acute infarct or hemorrhage. There is periventricular and subcortical white matter hypodensity which is nonspecific but compatible with chronic microvascular ischemic change. There are atherosclerotic calcifications of the intracranial circulation. There is generalized parenchymal volume loss without hydrocephalus, midline shift, or apparent mass effect. The CT angiogram images of the head reveal no evidence of large vessel occlusion. There is multifocal intracranial atherosclerotic disease. No aneurysms are seen. The major intradural venous sinuses are patent. There is a 70% stenosis of the proximal right internal carotid artery by NASCET criteria. There is a 50% stenosis of the proximal left internal carotid artery by NASCET criteria. 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 There is severe stenosis of the origin of the right vertebral artery which is otherwise patent. CT perfusion data: Relative cerebral blood flow <30%: 0 cc. TMax >6s: 31 cc in the left middle cerebral artery distribution.Mismatch volume: 31 ccMismatch ratio: N/A There are dorsal spondylitic changes in the cervical spine. There are scattered subcentimeter lymph nodes in the neck. There is biapical emphysematous disease. IMPRESSION: No CT evidence of acute infarct or hemorrhage. CT perfusion data as above. No evidence for a red cliff of [place] large vessel occlusion. 70% stenosis proximal right internal carotid artery by NASCET criteria. 50% stenosis proximal left internal carotid artery by NASCET criteria. Occluded left vertebral artery origin. Severe right vertebral artery origin stenosis. The findings were discussed with the critical care neurologist at approximately 10:50 AM. Signed: Crystal Perry MDReport Verified Date/Time: 10/30/2019 11:01:04 ReadingLocation: [facility] B1 C013V Neuro [facility] [id number] 11:01:00 Interface, External Ris In - 10/30/2019 11:03 AM CDTFINAL REPORT CLINICAL HISTORY: Neuro deficit, acute, stroke suspected TECHNIQUE: Initially, noncontrast head CT images were performed. Contiguous contrast- enhanced axial images through the neck followed by axial images through the head with coronal and sagittal reformations to assess the arterial circulation. 3-D reconstructions were performed using a volume rendered technique separately on a workstation. CT perfusion was also performed with data post processing generated by [employer] software. This exam was performed according tot departmental dose optimization program which includes automated exposure control, adjustment of the mA and/or kV according to the patient size, and/or use of an iterative reconstruction technique. COMPARISON: None FINDINGS: There is no CT evidence of acute infarct or hemorrhage. There is periventricular and subcortical white matter hypodensity which is nonspecific but compatible with chronic micro vascular ischemic change. There are atherosclerotic calcifications of the intracranial circulation. There is generalized parenchymal volume loss without hydrocephalus, midline shift, or apparent mass effect. The CT angiogram images of the head reveal no evidence of large vessel occlusion. There is multifocal intracranial atherosclerotic disease. No aneurysms are seen. The major intradural venous sinuses are patent. There is a 70% stenosis of the proximal right internal carotid artery by NASCET criteria. There is a 50% stenosis of the proximal left internal carotid artery by NASCET criteria. 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 There is severe stenosis of the origin of the right vertebral artery which is otherwise patent. CT perfusion data: Relative cerebral blood flow <30%: 0 cc. TMax >6s: 31 cc in the left middle cerebral artery distribution.Mismatch volume: 31 ccMismatch ratio: N/A There are dorsal spondylitic changes in the cervical spine. There are scattered subcentimeter lymph nodes in the neck. There is biapical emphysematous disease. IMPRESSION: No CT evidence of acute infarct or hemorrhage. CT perfusion data as above. No evidence for a red cliff of [place] large vessel occlusion. 70% stenosis proximal right internal carotid artery by NASCET criteria. 50% stenosis proximal left internal carotid artery by NASCET criteria. Occluded left vertebral artery origin. Severe right vertebral artery origin stenosis. The findings were discussed with the critical care neurologist at approximately 10:50 AM. Signed: Crystal Perry MDReport Verified Date/Time: 10/30/2019 11:01:04 ReadingLocation: [facility] B1 C013V Neuro Reading [facility] [id number] 11:01:00Interface, External Ris In - 10/30/2019 11:03 AM CDTFINAL REPORT CLINICAL HISTORY: Neuro deficit, acute, stroke suspected TECHNIQUE: Initially, noncontrast head CT images were performed. Contiguous contrast-enhanced axial images through the neck followed by axial images through the head with coronal and sagittal reformations to assess the arterial circulation. 3-D reconstructions were performed using a volume rendered technique separately on a workstation. CT perfusion was also performed with data post processing generated by [employer] software. This exam was performed according tothe departmental dose optimization program which includes automated exposure control, adjustment of the mA and/or kV according to the patient size, and/or use of an iterative reconstruction technique. COMPARISON: None FINDINGS: There is no CT evidence of acute infarct or hemorrhage. There is periventricular and subcortical white matter hypodensity which is nonspecific but compatible with chronic microvascular ischemic change. There are atherosclerotic calcifications of the intracranial circulation. There is generalized parenchymal volume loss without hydrocephalus, midline shift, or apparent mass effect. The CT angiogram images of the head reveal no evidence of large vessel occlusion. There is multifocal intracranial atherosclerotic disease. No aneurysms are seen. The major intradural venous sinuses are patent. There is a 70% stenosis of the proximal right internal carotid artery by NASCET criteria. There is a 50% stenosis of the proximal left internal carotid artery by NASCET criteria. 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 There is severe stenosis of the origin of the right vertebral artery which is otherwise patent. CT perfusion data: Relative cerebral blood flow <30%: 0 cc. TMax >6s: 31 cc in the left middle cerebral artery distribution.Mismatch volume: 31 ccMismatch ratio: N/A There are dorsal spondylitic changes in the cervical spine. There are scattered subcentimeter lymph nodes in the neck. There is biapical emphysematous disease. IMPRESSION: No CT evidence of acute infarct or hemorrhage. CT perfusion data as above. No evidence for a red cliff of [place] large vessel occlusion. 70% stenosis proximal right internal carotid artery by NASCET criteria. 50% stenosis proximal left internal carotid artery by NASCET criteria. Occluded left vertebral artery origin. Severe right vertebral artery origin stenosis. The findings were discussed with the critical care neurologist at approximately 10:50 AM. Signed: Crystal Perry MDReport Verified Date/Time: 10/30/2019 11:01:04 ReadingLocation: [facility] B1 C013V Neuro Reading [facility] 10:39:00 Test Item Value Reference Range Interpretation Comments RPR (test code = 06990-0) Nonreactive Nonreactive Lab Interpretation (test code = Normal 22245-7) [facility] 10:39:00 Test Item Value Reference Range Interpretation Comments RPR SCREEN (BEAKER) (test code = Nonreactive Nonreactive 420) Hemoglobin [id number] 10:34:00 Test Item Value Reference Range Interpretation Comments Hemoglobin A1C (test code = 4548-4) 5.3 % 4.3-6.1 Lab Interpretation (test code = Normal 49211-4) [facility] [id number] 10:34:00 Test Item Value Reference Range Interpretation Comments HEMOGLOBIN A1C (BEAKER) (test code = 5.3 % 4.3-6.1 368) Creatine Kinase (CK)2019-10-30 09:12:00 Test Item Value Reference Range Interpretation Comments Total CK (test code = 41 U/L 29-200 2157-6) JUAN LUIS (test code = JUAN LUIS) Varnish Inspector ID - NTP Lab Interpretation (test Normal code = 85347-5) [facility]MAG[facility]UM2020-04-28 09:12:00 Test Item Value Reference Range Interpretation Comments MAGNESIUM (BEAKER) (test code = 1.9 mg/dL 1.6-2.6 627) Varnish Inspector ID - NTPBASIC METABOLIC [id number] 09:12:00 Test Item Value Reference Range Interpretation Comments SODIUM (BEAKER) 135 meq/L 136-145 L (test code = 381) POTASSIUM (BEAKER) 4.7 meq/L 3.5-5.1 (test code = 379) CHLORIDE (BEAKER) 108 meq/L 98-107 H (test code = 382) CO2 (BEAKER) (test 22 meq/L 22-29 code = 355) BLOOD UREA NITROGEN 30 mg/dL 7-21 H (BEAKER) (test code = 354) CREATININE (BEAKER) 1.11 mg/dL 0.57-1.25 (test code = 358) GLUCOSE RANDOM 77 mg/dL 70-105 (BEAKER) (test code = 652) CALCIUM (BEAKER) 8.2 mg/dL 8.4-10.2 L (test code = 697) EGFR (BEAKER) (test 47 mL/min/1.73 INSUFF ICIENT CLINICAL code = 1092) sq m DATA TO CALCULA TE ESTIMATED GFR. Varnish Inspector ID - NTPCREATINE KINASE (CK)2019-10-30 09:12:00 Test Item Value Reference Range Interpretation Comments CREATINE KINASE TOTAL (BEAKER) (test 41 U/L 29-200 code = 380) Varnish Inspector ID - NTPPT/[id number] 09:10:00 Test Item Value Reference Range Interpretation Comments Protime (test code = 16.8 11.9- 14.2 H 5902-2) seconds INR (test code = 1.4 <=5.9 6301-6) PTT (test code = 34.2 22.5- 36.0 18514-5) seconds JUAN LUIS (test code = JUAN LUIS) Effective 11/29/2018: PT Reference Range ChangeNew: 11.9-14.2 Previous: 11.7-14.7 RECOMMENDED COUMADIN/WARFARIN INR THERAPY RANGESSTANDARD DOSE: 2.0-3.0 Includes: PROPHYLAXIS for venous thrombosis, systemic embolization; TREATMENT for venous thrombosis and/or pulmonary embolus.HIGH RISK: Target INR is 2.5-3.5 for patients wiht mechanical heart valves. Lab Interpretation Abnormal (test code = 78929-1) [facility] CenterPT/[id number] 09:10:00 Test Item Value Reference Range Interpretation Comments PROTIME (BEAKER) (test code = 16.8 seconds 11.9-14.2 H 759) INR (BEAKER) (test code = 370) 1.4 <=5.9 PARTIAL THROMBOPLASTIN TIME 34.2 seconds 22.5-36.0 (BEAKER) (test code = 760) Effective 11/29/2018: PT Reference Range ChangeNew: 11.9-14.2 Previous: 11.7- 14.7RECOMMENDED COUMADIN/WARFARIN INR THERAPY RANGESSTANDARD DOSE: 2.0-3.0 Includes: PROPHYLAXIS for venous thrombosis, systemic embolization; TREATMENT for venous thrombosis and/or pulmonary embolus.HIGH RISK: Target INR is2.5-3.5 for patients wiht mechanical heart valves.CBC W/PLT COUNT & AUTO [id number] 08:56:00 Test Item Value Reference Range Interpretation Comments WHITE BLOOD CELL COUNT (BEAKER) 9.9 K/ L 3.5-10.5 (test code = 775) RED BLOOD CELL COUNT (BEAKER) 3.14 M/ L 3.93-5.22 L (test code = 761) HEMOGLOBIN (BEAKER) (test code = 8.4 GM/DL 11.2-15.7 L 410) HEMATOCRIT (BEAKER) (test code = 27.8 % 34.1-44.9 L 411) MEAN CORPUSCULAR VOLUME (BEAKER) 88.5 fL 79.4-94.8 (test code = 753) MEAN CORPUSCULAR HEMOGLOBIN 26.8 pg 25.6-32.2 (BEAKER) (test code = 751) MEAN CORPUSCULAR HEMOGLOBIN CONC 30.2 GM/DL 32.2-35.5 L (BEAKER) (test code = 752) RED CELL DISTRIBUTION WIDTH 18.1 % 11.7-14.4 H (BEAKER) (test code = 412) PLATELET COUNT (BEAKER) (test 229 K/CU MM 150-450 code = 756) MEAN PLATELET VOLUME (BEAKER) 10.2 fL 9.4-12.3 (test code = 754) NUCLEATED RED BLOOD CELLS 0 /100 WBC 0-0 (BEAKER) (test code = 413) NEUTROPHILS RELATIVE PERCENT 62 % (BEAKER) (test code = 429) LYMPHOCYTES RELATIVE PERCENT 17 % (BEAKER) (test code = 430) MONOCYTES RELATIVE PERCENT 12 % (BEAKER) (test code = 431) EOSINOPHILS RELATIVE PERCENT 7 % (BEAKER) (test code = 432) BASOPHILS RELATIVE PERCENT 1 % (BEAKER) (test code = 437) NEUTROPHILS ABSOLUTE COUNT 6.15 K/ L 1.56-6.13 H (BEAKER) (test code = 670) LYMPHOCYTES ABSOLUTE COUNT 1.72 K/ L 1.18-3.74 (BEAKER) (test code = 414) MONOCYTES ABSOLUTE COUNT (BEAKER) 1.16 K/ L 0.24-0.36 H (test code = 415) EOSINOPHILS ABSOLUTE COUNT 0.73 K/ L 0.04-0.36 H (BEAKER) (test code = 416) BASOPHILS ABSOLUTE COUNT (BEAKER) 0.06 K/ L 0.01-0.08 (test code = 417) IMMATURE GRANULOCYTES-RELATIVE 0 % 0-1 PERCENT (BEAKER) (test code = 6331)
[2019-12-26] MEDS ORDERED: NOREPINEPHRINE 4mg/D5W 250mL 4 MG/250 ML BAG IV ONE (20:24)
[2019-12-26] MEDS ORDERED: D50W 25 GM/50 ML SYRINGE/VIAL IV ONE ×3 (20:29→22:44)
[2019-12-26 20:39] LABS: Absolute Lymphocytes (CBC) 4.3 K/uL (0.7-4.9); Basophils % 0.5 % (0-1.3); Hematocrit 27.5 % (36.0-45.0); Lymphocytes % 29.3 % (15.3-44.8); MPV 10.5 fL (7.6-11.3); RBC Red Blood Cell Count 2.75 M/uL (3.86-4.86)
[2019-12-26 20:42] LABS: Protime INR 2.34
--- NOTE | 2019-12-26 20:54 | ER ---
Nurse's Notes [facility] Name: Ivis Lee Age: 79 yrs Sex: Female : 1940 Arrival Date: 12/26/2019 Time: 19:59 Bed 3 Private MD: Diagnosis: Respiratory arrest;Cardiomegaly;Atrial fibrillation and flutter-RVR;Anemia, unspecified;Acute kidney failure;Hypothermia;Hyperkalemia Presentation: 12/25 19:54 Chief complaint: EMS states: Patient was witnessed by nursing staff of cardiac arrest lp1 at approximately 1900, CPR began; On EMS arrival, patient in asystole for about 20-25 minutes, pulse back on arrival to ED at 1950 but compressions began while entering ED; x5 Epi administered, last at 1948, x1 Bicarb administered; 6.5 ETT, 21 at the teeth. 19:54 Care prior to arrival: Oral intubation, CPR via thumper IV initiated. 18 GA, in the lp1 left antecubital area. Compressions began at 19:00. 19:54 Method Of Arrival: EMS: [facility] lp1 19:54 Acuity: JORGE A 1 lp1 20:00 Coronavirus screen: Proceed with normal triage. Ebola Screen: No symptoms or risks lp1 identified at this time. Risk Assessment: Do you want to hurt yourself or someone else? Unable to obtain. Onset of symptoms was December 26, 2019 at 19:00. Transition of care: patient was received from another setting of care (long-term care facility), [facility]. 20:00 Initial Sepsis Screen: Does the patient meet any 2 criteria? Temp <36.0*C (96.8*F)) or ea > 38.3*C (100.9*F). Mean Arterial Pressure (MAP) < 65. Yes Does the patient have a suspected source of infection? No. Patient's initial sepsis screen is negative. Historical: - Allergies: 20:51 Codeine; lp1 - Home Meds: 20:51 apixaban oral 2.5 mg oral 2 times per day [Active]; aspirin 81 mg oral TbEC once daily lp1 [Active]; atorvastatin 80 mg oral tab 1 tab nightly [Active]; carvedilol 6.25 mg oral tab 1 tab 2 times per day [Active]; furosemide 40 mg Oral tab 1 tab once daily [Active]; galantamine 12 mg oral tab 2 times per day [Active]; ipratropium-albuterol 0.5 mg-3 mg(2.5 mg base)/3 mL inhalation nebu every 6 hours [Active]; levothyroxine 75 mcg oral tab once daily [Active]; lisinopril 2.5 mg Oral tab 1 tab once daily [Active]; potassium chloride 20 mEq/15 mL Oral liqd 15 mL once daily [Active]; Symbicort 160-4.5 mcg/actuation inhalation HFAA 1 puffs 2 times per day [Active]; valproic acid (as sodium salt) 250 mg/5 mL oral soln 5 mL three times a day [Active]; - PMHx: 20:51 CVA; Dementia; Alzheimers; Dysphagia; Bronchitis; UTI; Atrial Fib; iron deficiency; lp1 Hypothyroidism; Hypertension; COPD; polyphagia; disorder of adrenal gland; frequency of micturition; - PSHx: 20:51 Unable to obtain; lp1 - Immunization history:: Adult Immunizations unknown. - Family history:: not pertinent. - Social history:: Smoking status: unknown. Screenin:09 Abuse screen: Denies threats or abuse. Nutritional screening: No deficits noted. ea Tuberculosis screening: No symptoms or risk factors identified. Fall Risk None identified. Assessment: 19:56 CPR assessment: unresponsive. Cardiac rhythm is Pulse at this time; Afib; Dr. Dove lp1 at bedside. 20:00 General: Pt unresponsive, pulse noted, pt intubated per EMS. Respiratory, ED physician ea and ED staff at bedside. . Pain: Unable to use pain scale. Patient is unresponsive. Respiratory: Airway via oral airway Pt being bagged. Derm: Skin is dry, Skin is pale, Skin temperature is cool. 21:30 Reassessment: Pt unresponsive. ETT in place respirations assisted. Mumtaz breath sounds ea coarse. NGT in place to left nare, to low intermittent suction. Santiago catheter in place to BSD. IV sites intact patent with fluid infusing. 22:50 Reassessment: Pt unresponsive. ETT in place respirations assisted. Mumtaz breath sounds ea coarse. NGT in place to left nare, to low intermittent suction. Santiago catheter in place to BSD. IV sites intact with fluid infusing. 12/26 00:53 Reassessment: Pt unresponsive. ETT in place, respirations assisted. NGT in place to ea left nare, to low intermittent suction. Santiago catheter in place to BSD. IV sites intact with fluid infusing. Pt admitted to ICU, left ED via stretcher accompanied by nurse, critical care technician and respiratory. Pt tolerating well. Vital Signs: 12/25 20:00 BP 104 / 87; Pulse 142; Resp 20 A; Pulse Ox 93% on 15% BVM; lp1 20:01 Temp 91.1; ea 20:05 BP 99 / 82; Pulse 132; Resp 15 A; Pulse Ox 94% on 15% BVM; lp1 21:30 BP 91 / 76; Pulse 130; Resp 17; Temp 94.1; Pulse Ox 100% on 60% FiO2 ETT vent; ea 22:28 BP 101 / 70; Pulse 102; Resp 17; Temp 94.1(C); Pulse Ox 98% on ETT vent; ea ED Course: 19:59 Patient arrived in ED. cf2 20:00 Inserted saline lock: 22 gauge in left hand, using aseptic technique. By WINSOME Lopez. lp1 20:00 One-on-one care X 30 minutes. lp1 20:04 NGT: inserted 14 Fr. via left nare. other By WINSOME Oro. lp1 20:05 Assisted provider with central line placement. Set up central line tray. Triple lumen lp1 line placed in right femoral. Line placed by Winston Dove MD Placement verified by blood return, Dressed with Tegaderm, Blood was collected. Was handwashing/sanitizing done immediately prior to procedure? Yes. Was patient positioned to in a way to prevent air embolism? Yes. Was procedure site sterilized? Yes, with Was the site allowed to dry? Yes. During the procedure, did the Practitioner(s) maintain a sterile field? Yes. Were unused ports clamped during insertion? Yes. Was blood aspirated from each lumen? Yes. After the procedure, did the Practitioner(s) clean the site and apply a sterile dressing? Yes. 20:10 Santiago cath inserted, using sterile technique, 16 Fr., by ED staff, balloon inflated, to lp1 gravity drainage, By WINSOME Oro. 20:14 Assisted provider with intubation using 7.5 mm ETT via oral route. ET tube secured at lp1 23cm at the lips. Set up intubation tray. Intubated by Winston Dove MD Placement verified by CO2 detector w/ + color change, auscultating bilateral breath sounds, End-tidal CO2 montioring CXR. 20:15 Patient has correct armband on for positive identification. Bed in low position. Side lp1 rails up X2. test engineer on. Pulse ox on. NIBP on. 20:22 Winston Dove MD is Attending Physician. ruth 20:28 Chest Single View XRAY In Process Unspecified. EDMS 20:35 Triage completed. lp1 20:49 CT Head Brain wo Cont In Process Unspecified. EDMS 20:49 CT Chest Abdomen Pelvis W/O Contrast In Process Unspecified. EDMS 20:51 Abdon Tejeda, RN is Primary Nurse. rr5 20:51 Prasanna Grimm is Hospitalizing Provider. ruth 21:10 Arm band placed on right wrist. ea 21:23 Preethi Dominguez, WINSOME is Primary Nurse. ea 21:28 Patient admitted, IV remains in place. ea Administered Medications: 20:00 Drug: NS 0.9% 1000 ml Route: IV; Rate: 1000 ml; Site: left hand; lp1 20:23 Drug: D50W 50 ml {Note: By WINSOME Oro.} Route: IVP; Site: right femoral; lp1 20:30 Drug: Levophed (4 mg/250 mL D5W 4 mcg/min Route: IV; Rate: calculated rate; Site: right ea femoral; 21:01 Drug: Pepcid 20 mg Route: IVP; Site: right femoral; ea 21:02 Drug: Sodium Bicarbonate 0.5 amp Route: IVP; Site: right femoral; ea 21:02 Drug: ProTONIX 40 mg Route: IVP; Site: right femoral; ea 21:25 Drug: Zosyn 3.375 grams Route: IVPB; Infused Over: 60 mins; Site: left hand; ea 21:26 Drug: Solu-CORTEF 100 mg Route: IVP; Site: left hand; ea 22:10 Drug: Calcium Gluconate 1 grams Route: IVPB; Infused Over: 60 mins; Site: left hand; ea 22:10 Drug: Insulin Regular Human 10 units {Co-Signature: rr5 (Abdon Tejeda RN).} Route: ea IVP; Site: left hand; 22:10 Drug: D50W 50 ml Route: IVP; Site: left hand; ea 22:12 Drug: Albuterol - atroVENT (3:1) (2.5 mg - 0.5 mg) 3 ml Route: Nebulizer; ea 22:15 Drug: Sodium Bicarbonate 1 amp Route: IVP; Site: left hand; ea 22:44 Drug: NS 0.9% 1000 ml Route: IV; Rate: 1 bolus; Site: right femoral; ea Outcome: 20:53 Decision to Hospitalize by Provider. ruth 22:30 Instructed on Pt unresponsive haley 12/26 00:53 Patient left the ED. rr5 00:53 Admitted to ICU accompanied by nurse, accompanied by tech, via stretcher, room 8, with haley oxygen, on monitor, with chart, Report called to Receiving nurse in ICU 00:53 critical Signatures: Dispatcher [employer] EDMS Winston Dove MD MD cha Pena, Laura, RN RN lp1 Preethi Dominguez RN RN ea Roque, Raymond, RN RN rr5 Jese Jerez 2 Abdon Tejeda RN rr5 Corrections: (The following items were deleted from the chart) 12/25 22:58 21:30 Reassessment: haley de leon
--- NOTE | 2019-12-26 20:54 | EDPHYS ---
Physician Documentation [facility] Name: Ivis Lee Age: 79 yrs Sex: Female : 1940 Arrival Date: 12/26/2019 Time: 19:59 Bed 3 Private MD: ED Physician Winston Dove HPI: 12/25 20:26 This 79 yrs old Unknown Female presents to ER via Unassigned with complaints of CPR. [facility] 20:26 Preceding the arrest, the patient collapsed, was dyspneic. The arrest occurred at [facility]. Pre-hospital course: The arrest was witnessed Bystanders at the scene performed CPR. EMS care prior to arrival: initiation of ACLS, peripheral IV, intubation oxygen, C-collar, ACLS has been in progress for ACLS details: Initial rhythm was asystole. The presenting rhythm is tachycardia. Airway: oral intubation, Medications given by EMS prior to arrival - see eunice, ems. The patient has not experienced similar symptoms in the past. Historical: - Allergies: 20:51 Codeine; lp1 - Home Meds: 20:51 apixaban oral 2.5 mg oral 2 times per day [Active]; aspirin 81 mg oral TbEC once daily lp1 [Active]; atorvastatin 80 mg oral tab 1 tab nightly [Active]; carvedilol 6.25 mg oral tab 1 tab 2 times per day [Active]; furosemide 40 mg Oral tab 1 tab once daily [Active]; galantamine 12 mg oral tab 2 times per day [Active]; ipratropium-albuterol 0.5 mg-3 mg(2.5 mg base)/3 mL inhalation nebu every 6 hours [Active]; levothyroxine 75 mcg oral tab once daily [Active]; lisinopril 2.5 mg Oral tab 1 tab once daily [Active]; potassium chloride 20 mEq/15 mL Oral liqd 15 mL once daily [Active]; Symbicort 160-4.5 mcg/actuation inhalation HFAA 1 puffs 2 times per day [Active]; valproic acid (as sodium salt) 250 mg/5 mL oral soln 5 mL three times a day [Active]; - PMHx: 20:51 CVA; Dementia; Alzheimers; Dysphagia; Bronchitis; UTI; Atrial Fib; iron deficiency; lp1 Hypothyroidism; Hypertension; COPD; polyphagia; disorder of adrenal gland; frequency of micturition; - PSHx: 20:51 Unable to obtain; lp1 - Immunization history:: Adult Immunizations unknown. - Family history:: not pertinent. - Social history:: Smoking status: unknown. ROS: 20:27 Unable to obtain ROS due to patient is on ventilator, cpr inprogress. ruth Exam: 20:27 Constitutional: The patient appears in obvious distress, severely distressed, mottled, ruth with afib rvr, positive pulse. 20:27 Cardiovascular: Rate: tachycardic, Rhythm: irregularly irregular, Pulses: Pulses are 4+ in bilateral radial, brachial, femoral, popliteal, posterior tibial and and dorsalis pedis arteries.. Heart sounds: normal, Edema: 3+ edema to level of left midcalf and right midcalf, JVD: is not appreciated. 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 20:27 Abdomen/GI: Inspection: distension, Bowel sounds: absent, Palpation: soft, Liver: no appreciated palpable abnormalities, Hernia: not appreciated. 20:43 ECG was reviewed by the Attending Physician. [facility] Vital Signs: 20:00 BP 104 / 87; Pulse 142; Resp 20 A; Pulse Ox 93% on 15% BVM; lp1 20:01 Temp 91.1; ea 20:05 BP 99 / 82; Pulse 132; Resp 15 A; Pulse Ox 94% on 15% BVM; lp1 21:30 BP 91 / 76; Pulse 130; Resp 17; Temp 94.1; Pulse Ox 100% on 60% FiO2 ETT vent; ea 22:28 BP 101 / 70; Pulse 102; Resp 17; Temp 94.1(C); Pulse Ox 98% on ETT vent; ea Procedures: 20:31 CPR: See CPR flow sheet. Initial patient assessment: unresponsive, pupils fixed \T\ ruth dilated, pale, intubated, Ambu ventilation, The presenting cardiac rhythm is a fib rvr. Intubation: Ventilated with 100% NRB prior to procedure. Intubated orally using # 3 Roys blade with 7.5 mm ETT. was successful on first attempt. Ventilated with Ambu bag. Tube secured with ETT garcía at right side of mouth measured 24 cm at lip. Placement verified by CXR, CO2 detector with (+) color change, auscultating bilateral breath sounds, O2 saturation after procedure was 100 %. Patient tolerated well. Central Line: the site was prepped with Betadine, in sterile fashion, a triple lumen catheter was inserted, in the right femoral vein, in 1 attempts. placement was verified, by blood return, the site was dressed with using sterile technique, the patient tolerated the procedure, well. MDM: 20:22 Patient medically screened. [facility] 20:30 Data reviewed: vital signs, nurses notes, lab test result(s), EKG, radiologic studies, ruth CT scan, plain films. 20:30 Differential diagnosis: arrythmia, cardiac arrest, respiratory arrest, asphyxiation, ruth renal failure. Data interpreted: laboratory monitor: rate is 130 beats/min, rhythm is atrial fibrillation, Pulse oximetry: on ventilator is 100 %. Test interpretation: by ED physician or midlevel provider: ECG, plain radiologic studies. Counseling: I had a detailed discussion with the patient and/or guardian regarding: the historical points, exam findings, and any diagnostic results supporting the discharge/admit diagnosis, the presence of at least one elevated blood pressure reading (>120/80) during this emergency department visit, lab results, radiology results, the need for further work-up and treatment in the hospital. 20:44 ED course: TO ICU, DR THRASHER TO ADMIT. [facility] 12/25 20:19 Order name: Amylase, Serum; Complete Time: 21:17 [facility] 12/25 20:19 Order name: Basic Metabolic Panel; Complete Time: 21:17 [facility] 12/25 20:19 Order name: Blood Culture Adult (2) [facility] 12/25 20:19 Order name: CBC with Diff; Complete Time: 21:17 [facility] 12/25 20:19 Order name: Ckmb; Complete Time: 21:17 [facility] 12/25 20:19 Order name: CPK; Complete Time: 21:17 [facility] 12/25 20:19 Order name: Lactate; Complete Time: 21:17 [facility] 12/25 20:19 Order name: LFT's; Complete Time: 21:17 [facility] 12/25 20:19 Order name: Lipase; Complete Time: 21:17 [facility] 12/25 20:19 Order name: Procalcitonin [facility] 12/25 20:19 Order name: Protime (+inr); Complete Time: 21:17 [facility] 12/25 20:19 Order name: Ptt, Activated; Complete Time: 21:17 [facility] 12/25 20:19 Order name: Troponin (emerg Dept Use Only); Complete Time: 21:17 [facility] 12/25 20:19 Order name: Urine Microscopic Only [facility] 12/25 20:19 Order name: Chest Single View XRAY [facility] 12/25 20:19 Order name: ABG; Complete Time: 21:17 [facility] 12/25 20:25 Order name: Magnesium [facility] 12/25 20:25 Order name: NT PRO-BNP [facility] 12/25 20:25 Order name: TSH [facility] 12/25 20:30 Order name: ABG [facility] 12/25 20:31 Order name: Glucose, Ancillary Testing; Complete Time: 20:42 [facility] 12/25 20:46 Order name: Type And Screen [facility] 12/25 20:47 Order name: Type and Screen [facility] 12/25 21:05 Order name: CBC Smear Scan [facility] 12/25 21:23 Order name: Packed RBC Leukored [facility] 12/25 21:34 Order name: T4 Free [facility] 12/25 22:10 Order name: COVID-19 [facility] 12/25 22:26 Order name: Glucose, Ancillary Testing [facility] 12/25 23:30 Order name: ABG Arterial Blood Gas [facility] 12/26 00:19 Order name: Lactate Sepsis 2 HR Follow-up [facility] 12/25 20:19 Order name: Accucheck; Complete Time: 20:19 [facility] 12/25 20:19 Order name: Cardiac monitoring; Complete Time: 20:19 [facility] 12/25 20:19 Order name: EKG - Nurse/Tech; Complete Time: 20:19 [facility] 12/25 20:19 Order name: IV Saline Lock - Large Bore; Complete Time: 20:20 [facility] 12/25 20:19 Order name: Labs collected and sent; Complete Time: 20:20 [facility] 12/25 20:19 Order name: O2 Per Protocol; Complete Time: 20:20 [facility] 12/25 20:19 Order name: O2 Sat Monitoring; Complete Time: 20:20 [facility] 12/25 20:25 Order name: EKG; Complete Time: 20:26 [facility] 12/25 20:25 Order name: IV Saline Lock; Complete Time: 21:25 [facility] 12/25 20:25 Order name: CT Head Brain wo Cont; Complete Time: 21:17 [facility] 12/25 20:25 Order name: CT Chest Abdomen Pelvis W/O Contrast [facility] 12/25 20:25 Order name: Central Line Kit; Complete Time: : [facility] 12/25 20:25 Order name: Santiago; Complete Time: : [facility] 12/25 20:51 Order name: NG Tube; Complete Time: 21:01 [facility] EC:43 Rate is 128 beats/min. Rhythm is irregularly irregular. QRS [place] is Normal. [place] interval ruth is normal. QRS interval is normal. QT interval is normal. No Q waves. T waves are Normal. T waves are Inverted. Clinical impression: Atrial Fibrillation. Interpreted by me. Reviewed by me. Administered Medications: 20:00 Drug: NS 0.9% 1000 ml Route: IV; Rate: 1000 ml; Site: left hand; lp1 20:23 Drug: D50W 50 ml {Note: By RN. Preethi} Route: IVP; Site: right femoral; lp1 20:30 Drug: Levophed (4 mg/250 mL D5W 4 mcg/min Route: IV; Rate: calculated rate; Site: right ea femoral; 21:01 Drug: Pepcid 20 mg Route: IVP; Site: right femoral; ea 21:02 Drug: Sodium Bicarbonate 0.5 amp Route: IVP; Site: right femoral; ea 21:02 Drug: ProTONIX 40 mg Route: IVP; Site: right femoral; ea 21:25 Drug: Zosyn 3.375 grams Route: IVPB; Infused Over: 60 mins; Site: left hand; ea 21:26 Drug: Solu-CORTEF 100 mg Route: IVP; Site: left hand; ea 22:10 Drug: Calcium Gluconate 1 grams Route: IVPB; Infused Over: 60 mins; Site: left hand; ea 22:10 Drug: Insulin Regular Human 10 units {Co-Signature: rr5 (Abdon Tejeda RN).} Route: ea IVP; Site: left hand; 22:10 Drug: D50W 50 ml Route: IVP; Site: left hand; ea 22:12 Drug: Albuterol - atroVENT (3:1) (2.5 mg - 0.5 mg) 3 ml Route: Nebulizer; ea 22:15 Drug: Sodium Bicarbonate 1 amp Route: IVP; Site: left hand; ea 22:44 Drug: NS 0.9% 1000 ml Route: IV; Rate: 1 bolus; Site: right femoral; ea Disposition: 20:45 Critical Care:. [facility] Disposition: 12/26/19 20:53 Hospitalization ordered by Prasanna Thrasher for Inpatient Admission. Preliminary diagnosis are Respiratory arrest, Cardiomegaly, Atrial fibrillation and flutter - RVR, Anemia, unspecified, Acute kidney failure, Hypothermia, Hyperkalemia. - Bed requested for Intensive Care Unit. - Status is Inpatient Admission. rr5 - Condition is Guarded. - Problem is new. - Symptoms have improved. Critical care time excluding procedures: 20:45 Critical care time: Bedside Care: 40 minutes, Consultation: 10 minutes. Total time: 50 ruth minutes Signatures: Dispatcher [employer] EDMS Winston Dove MD MD cha Pena, Laura RN RN lp1 Jessica Machado RN RN tl1 Preethi Dominguez RN RN ea Roque, Raymond, RN RN rr5 Abdon Tejeda RN rr5 Corrections: (The following items were deleted from the chart) 21: 20:53 Hospitalization Ordered by Prasanna Thrasher for Inpatient Admission. Preliminary [facility] diagnosis is Respiratory arrest; Cardiomegaly; Atrial fibrillation and flutter - RVR; Anemia, unspecified. Bed requested for Intensive Care Unit. Status is Inpatient Admission. Condition is Guarded. Problem is new. Symptoms have improved. [facility] :25 21:20 12/26/2019 20:53 Hospitalization Ordered by Prasanna Thrasher for Inpatient tl1 Admission. Preliminary diagnosis is Respiratory arrest; Cardiomegaly; Atrial fibrillation and flutter - RVR; Anemia, unspecified; Acute kidney failure; Hypothermia; Hyperkalemia. Bed requested for Intensive Care Unit. Status is Inpatient Admission. Condition is Guarded. Problem is new. Symptoms have improved. [facility] 12/26 00:53 12/25 22:25 12/26/2019 20:53 Hospitalization Ordered by Prasanna Thrasher for Inpatient rr5 Admission. Preliminary diagnosis is Respiratory arrest; Cardiomegaly; Atrial fibrillation and flutter - RVR; Anemia, unspecified; Acute kidney failure; Hypothermia; Hyperkalemia. Bed requested for Intensive Care Unit. Status is Inpatient Admission. Condition is Guarded. Problem is new. Symptoms have improved. tl1
[2019-12-26 21:01] LABS: ALT/SGPT 93 U/L (12-78); AST/SGOT 268 U/L (15-37); Albumin 1.7 g/dL (3.4-5.0); Alkaline Phosphatase 115 U/L (45-117); Amylase 148 U/L (25-115); BUN Blood Urea Nitrogen 54 mg/dL (7-18); Bicarbonate 16 mmol/L (21-32); Bilirubin Direct 0.4 mg/dL (0-0.2); Bilirubin Total 0.8 mg/dL (0.2-1.0); CKMB Creatine Kinase MB 3.7 ng/mL (0.3-3.6); Creatine Phosphokinase 227 U/L (26-192); Lipase 271 U/L (73-393); Protein, Total 7.6 g/dL (6.4-8.2); Sodium Level 146 mmol/L (136-145); Troponin (Emerg Dept Use Only) < 0.02 ng/mL (0.0-0.045)
[2019-12-26] MEDS ORDERED: PANTOPRAZOLE 40 MG INJ ONE (21:01)
[2019-12-26 21:04] LABS: Potassium 6.4 mmol/L (3.5-5.1)
[2019-12-26 21:05] LABS: Anisocytosis 3+; Blood Morphology Comment NOTED (NOT SEEN); Glucose Level 19 mg/dL (74-106); Hypochromasia 1+; Platelet Estimate ADEQ; Urine White Blood Cell Casts OK
[2019-12-26 21:07] LABS: Arterial Blood Carboxyhemoglob 1.9 % (0-1.5); Blood Gas Oxyhemoglobin 97.3 % (94-97); Blood O2 Saturation 99.6 % (92-98.5)
--- NOTE | 2019-12-26 21:10 | RAD REPORT ---
EXAM DESCRIPTION: CT - Head Brain Wo Cont - 12/26/2019 8:48 pm CLINICAL HISTORY: cpr COMPARISON: Ct Stroke Brain Wo Cont dated 10/30/2019 TECHNIQUE: Axial 5 mm thick images of the head were obtained without IV contrast. All CT scans are performed using dose optimization technique as appropriate and may include automated exposure control or mA/KV adjustment according to patient size. FINDINGS: No intracranial hemorrhage, mass, edema or shift of mid-line structures. No acute infarcti on changes seen. Patient has very significant atrophy and chronic ischemic change even for age. Ventr icles are in proportion to volume loss. The intracranial findings are similar to comparison. Mastoid air cells are clear. Air-fluid level in the sphenoid sinus present not unexpected in an intub ated patient. No acute bony findings. IMPRESSION: No hemorrhage, edema or acute intracranial finding. Advanced atrophy and chronic ischemic change. Intracranial findings are similar to [place] examination .
[2019-12-26] MEDS ORDERED: FAMOTIDINE 20 MG/2 ML VIAL IV ONE (21:14)
[2019-12-26] MEDS ORDERED: HYDROCORTISONE SUC 100 MG INJ ONE (21:14)
[2019-12-26] MEDS ORDERED: PIPER/TAZO/NS 3.375gm 3.375 GM/100 ML BAG ONE (21:14)
--- NOTE | 2019-12-26 21:21 | RAD REPORT ---
EXAM DESCRIPTION: CT - Chest Abd Pelvis Wo Con - 12/26/2019 8:48 pm CLINICAL HISTORY: cpr, found down, abd distended COMPARISON: No comparisons TECHNIQUE: Axial 5 millimeter thick images of the chest, abdomen and pelvis were obtained without IV contrast. Oral contrast was administered. All CT scans are performed using dose optimization technique as appropriate and may include automated exposure control or mA/KV adjustment according to patient size. FINDINGS: Scattered airspace opacification present primarily in the right lung field. Scattered pneu monia is possible. No necrotic changes. This is not a typical malignant pattern. Aspiration related t o CPR would be possible. Small bilateral pleural effusions are present. No pneumothorax is present. C ardiomegaly is present without pericardial effusion. No large mediastinal mass. Endotracheal tube is in place. Tip is 2 cm above the patience. NG tube is in good position. The bilater al second- sixth anterior ribs are fractured without displacement. Sternum fracture is present superi manuel near the sternum and more inferiorly near the xiphoid process. No displacement of the fracture f ragments. No chest wall mass or abnormal axillary lymphadenopathy seen. A 3.8 centimeter round hyperdense masses present along the posterosuperior margin of the liver. It is difficult to determine if this is subdiaphragmatic or within the posterior gutter. Immediate signifi cance is doubtful. No suspicion for liver or spleen laceration or trauma. No gross pancreatic abnorma lity seen. Gallbladder is contracted or absent. No biliary tree dilatation. No hydronephrosis or suspicious renal mass. Isodense masses and pyelonephritis cannot be excluded on non contrast imaging. No adrenal abnormalities. Urinary bladder is contracted around a Santiago cathete r. Pelvic floor assessment is limited due to spray artifact from the right hip prosthesis. A spurring like metallic device is seen along the floor the pelvis. This may be a pessary or similar device. Ag ain, significance long-term it is doubtful. No free air or pneumatosis. No abnormal intraperitoneal fluid collection. Patient has fluid retention throughout the subcutaneous fatty tissues. No mass or bulky lymphadenopathy. Right femoral venous access line is in place. Arterial tree calcifications are present. IMPRESSION: CT chest imaging shows numerous areas of airspace consolidation primarily throughout the lobes of the right chest. Pneumonia would be a primary consideration. A COVID-19 etiology cannot be excluded. Airspace disease from CPR would be possible. The sternum is fractured in 2 locations in the patient has bilateral second-sixth anterior rib fractu res. No displacement and no pneumothorax. Endotracheal tube and ET tube are in good position. Right femoral venous access catheter in place. No free air, bowel dilatation or other significant peritoneal or retroperitoneal finding. A 3.8 centimeter mass in the right side near the diaphragm is present. Is is not definitive if this i s in the posterior gutter on a possible hematoma or if it is subdiaphragmatic. This is not seen as a clinically emergent finding. CT abdomen and pelvis imaging shows no significant or suspicious finding.
[2019-12-26 21:29] LABS: Magnesium 2.7 mg/dL (1.8-2.4)
[2019-12-26 21:32] LABS: Thyroid Stimulating Hormone 48.2 uIU/mL (0.360-3.740)
[2019-12-26] MEDS ORDERED: ALBUTEROL 2.5 MG/3 ML NEB SOL ONE (21:44)
[2019-12-26] MEDS ORDERED: IPRATROPIUM BROM 0.5MG/2.5ML ONE (21:44)
[2019-12-26] MEDS ORDERED: INSULIN -REGULAR HUMAN 50 UNIT/0.5 ML ML ONE (21:45)
[2019-12-26] MEDS ORDERED: NA CHLORIDE 0.9% 100 ML IV ONE (21:46)
[2019-12-26] MEDS ORDERED: Caclcium Chloride 10% INJ SYR IV ONE (21:46)
[2019-12-26] MEDS ORDERED: NA CHLORIDE 0.9% 1,000 ML ONE (21:46)
--- NOTE | 2019-12-26 21:48 | P.HP ---
Certification for Inpatient Patient admitted to: Inpatient With expected LOS: >2 Midnights Practitioner: I am a practitioner with admitting privileges, knowledge of patient current condition, hospital course, and medical plan of care. Services: Services provided to patient in accordance with Admission requirements found in Title 42 Section 412.3 of the Code of Federal Regulations Patient History Date of Service: 12/26/19 Reason for admission: Cardiac arrest History of Present Illness: 79-year-old care home resident with a history of dementia was brought to the emergency department by EMS due to cardiac arrest witnessed in the care home. The port her initial rhythm was asystole, patient was intubated on the field, CPR carried for 20-25 min, patient received 5 epinephrine injections, with ROSC. EKG in the ED demonstrated atrial fibrillation. She was given 2 L of normal saline, ETT changed in the ED, central line placed, patient received 2 amps of bicarb and started on Levophed, arterial blood gas showed acidemia, BMP demonstrated hyperkalemia. Chest x-ray demonstrated diffuse patchy infiltrate which is worse compared to previous chest x-ray. Santiago catheter placed with no urine output. Patient noted to be gasping for breath even on the vent. She is hospitalized for further management. Allergies codeine Adverse Reaction (Verified 12/27/19 04:04) Itching/Hives/Rash Home Medications: Amino AC/Protein Hydr/Whey Pro [Liquacel Liquid Protein Packet] 30 ml PO BID 12/27/19 Apixaban [Eliquis *] 2.5 mg PO BID 12/27/19 Aspirin [Aspirin EC 81 MG] 81 mg PO DAILY 12/27/19 Atorvastatin Calcium [Lipitor] 80 mg PO BEDTIME 12/27/19 Budesonide/Formoterol Fumarate [Symbicort 160-4.5 Mcg Inhaler] 1 puff IH BID 12/27/19 Furosemide [Lasix] 40 mg PO DAILY 12/27/19 Galantamine HBr [Razadyne] 12 mg PO BID 12/27/19 Ipratropium/Albuterol Sulfate [Iprat-Albut 0.5-3(2.5) mg/3 ml] 1 vial IH Q6HP PRN 12/27/19 Levothyroxine [Synthroid*] 1 tab PO DAILY 12/27/19 Lisinopril [Zestril] 1 tab PO DAILY 12/27/19 Potassium Chloride 15 ml PO DAILY 12/27/19 Valproic Acid Syrup [Depakene Syrup] 250 mg PO TID 12/27/19 carvediloL [Carvedilol] 6.25 mg PO BID 12/27/19 - Past Medical/Surgical History -: Dementia -: Chronic anticoagulation -: Dysphagia -: Atrial fibrillation -: Hypothyroidism - Family History Family History: Reviewed- Non-Contributory - Social History Alcohol use: No CD- Drugs: No Place of Residence: Home Review of Systems is unable to be obtained (Altered mental status) Physical Examination - Physical Exam General: Unresponsive HEENT: Normocephalic, Other ([place]point pupils, ETT.) Neck: Supple, JVD not distended Respiratory: Crackles/rales (Diffuse), Other (Agonal breathing) Cardiovascular: Normal S1 S2, Edema (2+ bilateral lower extremity pitting edema), Irregular heart rate/rhythm Gastrointestinal: Hypoactive, Soft and benign, Non-distended, No tenderness Musculoskeletal: Other (Peripheral cyanosis-hands and feet) Integumentary: No rashes Neurological: Other (Unresponsive) - Studies Laboratory Data (last 24 hrs) 12/26/19 20:10: Magnesium 2.7 H D 12/26/19 20:10: PT 27.2 H, INR 2.34, APTT 37.2 H 12/26/19 20:10: WBC 14.5 H, Hgb 7.7 L*, Hct 27.5 L, Plt Count 199 12/26/19 20:10: Sodium 146 H, Potassium 6.4 H*, BUN 54 H, Creatinine 2.18 H, Glucose 19 L*, Total Bilirubin 0.8, AST 268 H, ALT 93 H, Alkaline Phosphatase 115, Amylase 148 H, Lipase 271 Assessment and Plan - Problems (Diagnosis) (1) Cardiac arrest Current Visit: Yes Status: Acute (2) Pneumonia Current Visit: Yes Status: Acute (3) COPD exacerbation Current Visit: Yes Status: Acute (4) Acute respiratory failure with hypoxemia Current Visit: Yes Status: Acute (5) Cardiogenic shock Current Visit: Yes Status: Acute (6) Hyperkalemia Current Visit: Yes Status: Acute (7) Acute renal failure Current Visit: Yes Status: Acute (8) Anemia Current Visit: Yes Status: Acute (9) Metabolic acidosis Current Visit: Yes Status: Acute - Plan I spoke to the son who agreed to DNR. I discussed poor prognosis with the son and less likelihood of meaningful recovery. Prognosis is very poor. I discussed withdrawal of care and comfort measures with the son. Son stated he will need to discuss with his siblings before making that decision. Admit to ICU Repeat IV normal saline bolus 1 L, due to persistent hypotension despite Levophed drip and anuria. IV antibiotics Bicarb drip Treat hyperkalemia with bicarb drip, D50 and IV insulin. Kayexalate via NGT. Serial blood gas Continue Levophed drip Follow blood cultures, Bronchodilators Transfuse 1 unit PRBC. Screen for Covid 19. DNR. SCD for DVT prophylaxis given anemia. Son can be reached at [phone]. - Advance Directives Does patient have a Living Will: No Does patient have a Durable POA for Healthcare: No
[2019-12-26] MEDS ORDERED: CALCIUM GLUCONATE 1 GM IVPB 1 GM/50 ML BAG IV ONE (21:55)
--- NOTE | 2019-12-26 22:42 | RAD REPORT ---
EXAM DESCRIPTION: RAD - Chest Single View - 12/26/2019 8:28 pm CLINICAL HISTORY: POST ETT, CPR COMPARISON: Portable October 29 TECHNIQUE: AP portable chest image was obtained 12/26/2019 8:28 pm . FINDINGS: Resuscitation paddles overlie the lower left chest and upper right chest. Endotracheal tub e is in place with tip at the top of the aortic arch. NG tube extends below the diaphragm into the st omach. Small pleural effusions are present. Patient has a diffusely prominent interstitial pattern as a baseline. Additional airspace opacities are scattered in the right lung field. Heart size is enlar ged slightly. Vasculature is mildly prominent. No pneumothorax. No acute bony abnormality seen. No ac [place] aortic findings suspected. IMPRESSION: Endotracheal tube and NG tube are in good position. Scattered right lung field pneumonia changes are evident superimposed on chronic interstitial lung di sease. In the setting of CPR, aspiration is not excluded.
[2019-12-26] MEDS ORDERED: D50W 25 GM/50 ML SYRINGE/VIAL IV PRN (22:44)
[2019-12-26] MEDS ORDERED: SOD POLYSTYREN SUL 15 GM/60 ML UCUP FT ONE (22:44)
[2019-12-26] MEDS ORDERED: ACETAMINOPHEN 650MG/RECT SUPP RECT PRN (22:44)
[2019-12-26] MEDS ORDERED: GLUCAGON 1 MG/VIAL IM PRN (22:44)
[2019-12-26] MEDS ORDERED: ONDANSETRON 4 MG/2 ML VIAL IV PRN (22:44)
[2019-12-26] MEDS ORDERED: INSULIN -REGULAR HUMAN 50 UNIT/0.5 ML ML IV ONE (22:44)
[2019-12-26] MEDS ORDERED: NOREPINEPHRINE 4 MG in D5W 250 ML IV PRN (22:44)
[2019-12-26] MEDS ORDERED: NA CHLORIDE 0.9% 1,000 ML IV SCH (23:00)
[2019-12-26] MEDS ORDERED: VANCOMYCIN 1 GM in NA CHLORIDE 0.9% 250 ML IVPB SCH (23:00)
[2019-12-26 23:29] LABS: Arterial Blood Carboxyhemoglob 1.7 % (0-1.5); Blood Gas Oxyhemoglobin 96.9 % (94-97); Blood O2 Saturation 99.4 % (92-98.5)
[2019-12-26] MEDS ORDERED: D5W 1,000 ML IV ONE (23:35)
[2019-12-26] MEDS ORDERED: SODIUM BICARB 50 MEQ/50ML VIAL ONE (23:36)
[2019-12-26] MEDS ORDERED: VANCOMYCIN 1 GM/VIAL ONE (23:40)
[2019-12-26] MEDS ORDERED: NA CHLORIDE 0.9% 250 ML ONE (23:40)
[2019-12-27] MEDS: D5W 1,000 ML with NA BICARB 8.4% 150 MEQ IV SCH ×4 (01:13→11:06)
[2019-12-27 01:57] VITALS: BMI 25.1
[2019-12-27] MEDS: ALBUTEROL 2.5 MG/3 ML NEB SOL NEB SCH ×3 (02:00→13:47)
[2019-12-27] MEDS ORDERED: CEFEPIME/SWI 1gm 10 ML IV SCH (02:00)
[2019-12-27] MEDS ORDERED: DILTIAZEM INJ 125 MG in NA CHLORIDE 0.9% 100 ML IVPB PRN (02:06)
[2019-12-27] MEDS ORDERED: NA CHLORIDE 0.9% 250 ML ONE (02:18)
[2019-12-27] MEDS ORDERED: Nicardipine/NS 25 MG/250 ML KIT IV ONE (02:20)
[2019-12-27] MEDS ORDERED: VANCOMYCIN 1 GM in NA CHLORIDE 0.9% 250 ML IVPB ONE (03:00)
[2019-12-27] MEDS: LORazepam 2 MG/ML VIAL IV PRN ×2 (04:39→21:05)
[2019-12-27] MEDS ORDERED: DIPHENHYDRAMINE 50 MG/ML VIAL IV ONE (05:26)
[2019-12-27] MEDS ORDERED: DIPHENHYDRAMINE 50 MG/ML VIAL ONE (05:35)
[2019-12-27 06:02] LABS: Absolute Lymphocytes (CBC) 1.2 K/uL (0.7-4.9); Basophils % 0.3 % (0-1.3); Hematocrit 29.8 % (36.0-45.0); Lymphocytes % 5.6 % (15.3-44.8); RBC Red Blood Cell Count 3.33 M/uL (3.86-4.86)
[2019-12-27 06:21] LABS: Arterial Blood Carboxyhemoglob 1.9 % (0-1.5); Blood Gas Oxyhemoglobin 94.8 % (94-97); Blood O2 Saturation 97.8 % (92-98.5)
--- NOTE | 2019-12-27 06:31 | EKG ---
Test Date: 2019-12-26 Test Time: 20:06:35 Toll Relief Operator: FABIANA MEASUREMENT RESULTS: Intervals: Rate: 128 WI: QRSD: 84 QT: 364 QTc: 531 [place]: P: WI: QRS: -57 T: 257 INTERPRETIVE STATEMENTS: Atrial fibrillation with rapid ventricular response Left axis deviation Low voltage QRS Septal infarct, age undetermined ST & T wave abnormality, consider inferolateral ischemia or digitalis effect Abnormal ECG Compared to ECG 10/30/2019 05:50:31 Left-axis deviation now present Low QRS voltage now present ST (T wave) deviation now present Possible ischemia now present Myocardial infarct finding still present Electronically Signed On 12-27-19 06:30:23 CDT by Amos Rouse
[2019-12-27 06:43] LABS: Albumin 1.6 g/dL (3.4-5.0); Bilirubin Total 1.1 mg/dL (0.2-1.0); Magnesium 1.9 mg/dL (1.8-2.4); Phosphorus 4.2 mg/dL (2.5-4.9); Potassium 4.2 mmol/L (3.5-5.1); Protein, Total 7.1 g/dL (6.4-8.2)
[2019-12-27 06:46] LABS: Thyroid Stimulating Hormone 19.4 uIU/mL (0.360-3.740)
[2019-12-27 07:54] LABS: Blood Morphology Comment NOTED (NOT SEEN); Platelet Estimate ADEQ
[2019-12-27 07:55] LABS: Anisocytosis 2+; Polychromasia 1+
[2019-12-27 07:58] LABS: Burr Cells 1+; Toxic Granulation 1+
[2019-12-27] MEDS ORDERED: CEFEPIME 1 GM/VIAL IV SCH (09:00)
[2019-12-27] MEDS ORDERED: CISATRACURIUM INJECTION 2 MG/ML (10 ML Vial) IV ONE (13:30)
[2019-12-27 14:03] LABS: C.diff Antigen/Toxin Ag neg : Tox neg (NEG : NEG)
--- NOTE | 2019-12-27 18:49 | PN ---
Date of Progress Note: 12/27/2019 Code Status: Do not attempt resuscitation. Medications List: Reviewed. Case discussed with Dr. Newsome, Neurology. Physical Examination: Vital Signs: Temperature 98.2, heart rate 150, blood pressure 110/72, respirations 21, O2 99% on 40% FiO2. General: Intubated, not sedated. Does not respond to sternal rub, ill-appearing elderly female. HEENT: Normocephalic, atraumatic. PERRLA, sluggish. Patient does open eyes, but does not track wit h painful stimuli. CV: S1, S2, irregularly irregular. Rapid rate. Peripheral pulses weak. Respiratory: Diminished breath sounds. Crackles and rhonchi present. Patient is tachypneic. Gastrointestinal: Abdomen is soft, nondistended. Hypoactive bowel sounds. Extremities: No clubbing, cyanosis, or significant edema. Neuro: Patient is intubated, not sedated. On my exam, did not respond to painful stimuli. She did early for the nurse, does have minimal gag reflex. Laboratory Data: Sodium 148, potassium 4.2, chloride 114, CO2 of 23, BUN 57, creatinine 2.02, glucos e 155, lactate 7.8, calcium 7.5, phosphorus 4.2, magnesium 1.9, AST 443, ALT 139, alkaline phosphatas e 103, albumin 1.6. TSH 19. WBC 21.2, H and H 9.4 and 39.8, platelets 184, neutrophils 87%, 16% ban ds. C diff is negative. COVID screen is negative. ABG, pH 7.46, pCO2 30.5, PO2 of 91.4, bicarb 21. 5. Blood cultures pending. EEG per verbal report does show some diminished activity consistent with hypoxic brain injury, does show minimal spikes. However, overall poor prognosis and poor long-term prognosis. CT head shows no hemorrhage, edema, or acute intracranial finding. Assessment And Plan: 1.Cardiopulmonary arrest, likely due to pneumonia. Patient received CPR for 25 minutes and had retu rn of circulation, with this prolonged hypoxia likely will have multiorgan failure. 2.Acute respiratory failure with hypoxemia, currently on the ventilator. 3.Pneumonia likely aspiration type, on antibiotics. Follow up on cultures. 4.Chronic obstructive pulmonary disease exacerbation acute. We will continue on breathing treatment s. Coronavirus disease testing is negative. 5.Cardiogenic shock. 6.Hyperkalemia, corrected. We will continue to monitor. 7.Acute kidney injury likely secondary to above. Kidney functions improved. 8.Metabolic acidosis due to hypoxemia. 9.Anemia. 10.Hypotensive shock. Patient was on Levophed drip and recently weaned off. 11.Hypothermia, temperature has improved with resuscitation and rewarming. 12.Multiorgan failure. Liver function tests in the 400s. 13.Hypoglycemia. Blood glucose less than 20, improved now. 14.Deep vein thrombosis prophylaxis on SCDs due to anemia. PLAN: Overall very poor prognosis. Did consult with Dr. Newsome with Neurology. Patient has overall poor prognosis. The EEG shows very minimal response. I spoke to the son at length who is one of 4 sibli ngs. He had a discussion with the rest of his siblings were all in [place]. Patient does not have a md medical power of mastic sprayer or living will. They are in agreement to do not attempt resuscitation a nd now with new information regarding the poor prognosis as evidenced by the EEG, hypoxic brain injur y and multiorgan failure and her history of advanced dementia, the son feels that he would like to wi thdraw care. Patient will likely in over the next few hours to a day or two once with care townsend s been withdrawn. Consider hospice if the patient survives the initial first couple of hours. Case Management involved and getting documents sign for withdrawal of care. Son understands that this is a terminal event and the patient is likely to . All questions were answered. He did not wish to have any further consultations including Cardiology and Pulmonology as they are heading towards followup c are. Overall poor prognosis. SA/MODL Voice ID: [id number] Report ID: [id number]
--- NOTE | 2019-12-27 21:10 | CON ---
Reason For Consultation: Consultation called because of unresponsiveness, status post cardiopulmonar y resuscitation. History Of Present Illness: Ms. Lee is a 79-year-old right-handed patient with advance d dementia and multiple medical problems including hypertension, dyslipidemia, and atrial fibrillatio n who was residing in her [facility] when she was apparently witnessed to have unresponsive episode of falling and had cardiac arrest. She was initiated with CPR in the field and it was carried on fo r up to about 25 minutes. She received 5 amps of epinephrine injections and was found to have a rhyt hm of fibrillation in the field. She was intubated and given also 2 amps of bicarb and needed pressu re support with Levophed. Her workup revealed acidosis, pH 7.1. Chest x-ray showed patchy infiltrat es. While in ICU, the nurses noted that stimulation of the upper extremities led to extensor posturi ng of the arms. She did seem to have slight focal withdrawal in the lower extremities to noxious sti mulation at the nailbeds. She is found to be breathing over the ventilator and her pupils are around 3 mm and sluggishly reactive. She did have head CT scan, which showed advanced atrophy and chronic ischemic change. There were no acute findings such as stroke, bleeding, and no loss of brenner-white di stinction. Earlier today while I was evaluating the patient, she was able to have an EEG done. Duri ng most of the EEG, she was obscured by muscle artifact in the temporal region dominating the EEG. S he was given 5 mg of Nimbex, which limited the muscle artifact to reveal an EEG showing a pattern mor e consistent with low-amplitude burst suppression with only [id number] voltage 2 to 3 hertz acti vity, occurring for about a second dispersed by 3 or so seconds of very generalized attenuation. Oth erwise, there was no fast activity in the front. No posterior dominant rhythm type activity, but eye opening and closing. With stimulation of the nail beds in the extremities both upper and lower, the re was very minimal reactivity in the EEG with some 1-1/2 hertz activity occurring for about 1 second timed with the stimulation. Past Medical History: As indicated in addition to stroke with dysphagia and difficulty with protecti ng airway, bronchitis, prior urinary tract infection, iron deficiency, hypothyroidism, chronic obstru ctive pulmonary disease. Past Surgical History: Not known. Family History: Noncontributory. Allergies: CODEINE. Medications: At home: Eliquis 2.5 mg twice daily, aspirin 81 mg daily, atorvastatin 80 mg at bedtim e, carvedilol 6.25 mg twice daily, furosemide 40 mg daily, galantamine 12 mg twice daily, ipratropium /albuterol nebulizer every 6 hours, levothyroxine 75 mcg daily, lisinopril 2.5 mg daily, potassium ch loride 50 mEq daily, Symbicort inhaled 1 puff twice daily, valproic acid 750 mg 3 times daily. Review of Systems: Not possible. Physical Examination: Vital Signs: Blood pressure 110/72, pulse up to 150, respiratory rate 21, oxygen saturation 99% on F iO2 of 40 with mechanical ventilation, and temperature 98.2. Weight 137 pounds, height 5 feet 2 inch es, BMI 25.1. Neurologic: Ms. Lee is intubated, unresponsive to noxious stimulation, except for the nailbeds e liciting very slight withdrawal of the lower extremities, but no movement noted of upper extremities. No response to external stimulation or supraorbital pressure. Pupils were 3 mm and sluggishly reac tive and equal. No doll's eyes are elicited. The nurses reported no clear gag reflex with suction. Face did appear symmetric and the upper extremities and chest showed good air movement. Abdomen: Soft. Extremities: No cyanosis or clubbing in the lower extremities. Her tone was normal in the upper and lower extremities. Laboratory Studies: White blood cell count elevated at 21.2 with 87.5% neutrophils, hemoglobin 9.4, platelets 184. INR 2.34. Blood gas shows initial pH on 12/25 was 7.14, now pH 7.46. Chemistries sh ow lactic acid of 7.8. Initial glucose should be noted was less than 20 [address] she came to the [facility]. Her procalcitonin has been normal at 0.25. Her potassium on arrival was 6.4, and her thyroid-sti mulating hormone level was elevated to 48.2. C difficile is negative and she has negative COVID-19 r esults. Assessment: Ms. Lee is a 79-year-old patient with advanced small vessel ischemic disease and chr onic dementia, who has multiple comorbid conditions as now status post a prolonged resuscitation afte r cardiopulmonary arrest. She has minimal responses to noxious stimulation in the lower extremities. No clear responses in the upper extremities to noxious stimulus and also to supraorbital stimulatio n. Her head CT scan does not show loss of brenner-white distinction and it was done soon after her resu scitation. Her EEG, however, shows very little meaningful cortical activity, burst suppression patte rn with low-amplitude slow activity in the delta range occurring for about a second and dispersed by about 3 to 4 seconds of very generalized attenuation. She does have some minimal response to noxious stimulation in the feet and upper extremities to the EEG. Otherwise, EEG does not have any normal p atterns. This was discussed with the patient's son and the family. They actually decided that she s hould be a do not resuscitate level and they are working on deciding to withdraw care. This is actua lly appropriate as EEG findings are not consistent with any meaningful recovery. Plan: 1.The patient may continue supportive care until the family works on withdrawal of the care. 2.If the patient does survive and can breathe on her own, perhaps hospice may be considered for the remainder of the patient's times. IRIS/MARSHA Voice ID: [id number] Report ID: [id number]
[2019-12-28] MEDS ORDERED: CEFEPIME/SWI 1gm 10 ML IV SCH (02:00)
[2019-12-28] MEDS: LORazepam 2 MG/ML VIAL IV PRN ×2 (02:22→07:22)
[2019-12-28] MEDS ORDERED: VANCOMYCIN/NS 1 gm 1 GM/250 ML BAG IV SCH (06:00)
[2019-12-28] MEDS ORDERED: MORPHINE 2 MG/ML SYR IV PRN (08:20)
[2019-12-28] MEDS ORDERED: SCOPOLAMINE HYDROBROMIDE PATCH TD SCH (09:00)
[2019-12-28 09:09] VITALS: O2SAT 90
[2019-12-28] MEDS ORDERED: EPINEPHrine 1 MG/10 ML SYR IV ONE (16:28)
[2019-12-28] MEDS ORDERED: NA CHLORIDE 0.9% 1,000 ML IV ONE (16:28)
[2019-12-28 16:29] VITALS: BP 93/81; TEMP 98.9
--- NOTE | 2019-12-29 02:02 | DS ---
Date of Discharge: 12/28/2019 Consultants: Dr. Newsome with Neurology. Admitting Diagnoses: 1. Cardiopulmonary arrest. 2. Pneumonia. 3. Chronic obstructive pulmonary disease exacerbation, acute. 4. Acute respiratory failure with hypoxemia. 5. Cardiogenic shock. 6. Hypotensive shock. 7. Hyperkalemia. 8. Acute renal failure. 9. Anemia. 10. Metabolic acidosis. Discharge Diagnoses: 1. Cardiopulmonary arrest possibly secondary to pneumonia versus embolic phenomena. 2. Acute respiratory failure with hypoxemia. 3. Anoxic brain injury. 4. Multiorgan failure. 5. Pneumonia, likely aspiration. 6. Acute chronic obstructive pulmonary disease exacerbation. 7. Hyperkalemia, corrected. 8. Acute kidney injury secondary to above. 9. Metabolic acidosis secondary to hypoxemia. 10. Anemia. 11. Hypotensive shock. 12. Hypothermia. 13. Hypoglycemia, severe. 14. Atrial fibrillation with rapid ventricular response. Hospital Course: Patient is a 79-year-old female from the nursing facility, came in due to cardiac arrest at the facility. Patient had CPR for 20 to 25 minutes, received 5 epinephrine injections and had return of spontaneous circulation. She also received 2 amps of bicarb, was started on Levophed for hypotensive shock. ABG showed severe acidemia with pH of 7.1. She was hyperkalemic and was treated for the hyperkalemia. Chest x-ray showed diffuse patchy infiltrates. Patient had to be placed on the ventilator. Patient did have multiple bruised ribs and likely fractures. Patient had hypoglycemia with glucose of less than 20. She was given medications to improve the blood glucose level, came up to 110. The patient also had multiorgan failure due to the hypoxia with a creatinine of 2.18 and liver enzymes in the 400. The patient also had elevated lactate 13.6, which improved to 7.8. She was on blood thinners. INR was therapeutic range. Her COVID test was negative. C diff assay was also negative. The patient's son made the patient DNR as they did not want the patient to suffer further. He was in contact with his 3 other siblings who were all in [place]. Patient's blood cultures to date had not shown any growth. EEG was done, which did not show any normal patterns. The EEG findings not consistent with any meaningful recovery, showed very little meaningful cortical activity for suppression pattern and was seen by Dr. Newsome. Due to the overall condition resulting from her cardiac arrest including multiorgan failure, including liver failure and kidney failure along with pulmonary failure and EEG showing very minimal signs of any meaningful recovery in the EEG, the family decided to withdraw care. Patient was able to breathe with nasal cannula. She continued to be in atrial fibrillation with rapid ventricular response. Initially, she was on Cardizem drip. Patient now is under palliative care with Ativan and morphine as needed. Hospice is being discussed with the family and will be initiated for inpatient hospice. Patient will likely in the next day or so, has a very poor prognosis. She will continue with care and comfort measures. She will to be transferred to inpatient hospice once accepted. for physical exam findings please see progress note from day of discharge Total time spent discharging patient was 45 minutes. [place] Voice ID: [id number] Report ID: [id number] IVON
--- NOTE | 2019-12-30 16:37 | P.PN ---
Date of Service: 12/28/19 patients son wants hospice . will have case management and licensed master social worker set up hospice at nursing facility per family request . physical exam general: not responsive to sternal rub. ill appearing CV: S1, S2. irregularly irregular Resp: diminished BS GI: non distended. BS+. Ext: no clubbing cyanosis or edema Neuro: does not open eyes to sternal rub. non responsive. please see discharge summary for A/P
--- NOTE | 2020-01-01 13:10 | EEG ---
CHART: [id number] TEST ID#: [id number] DATE OF STUDY: 12/27/2019 THE EEG WAS RECORDED PORTABLE IN THE ICU ON A 14 CHANNEL MACHINE. ELECTRODES WERE APPLIED IN THE USUAL MANNER USING THE INTERNATIONAL 10-20 SYSTEM. THE WAKING BACKGROUND RHYTHM IN THIS RECORD CONSISTS OF POORLY DEVELOPED AND POORLY ORGANIZED WAVES OF 1.5-3 HZ., WHICH DO NOT ATTENUATE NORMALLY WITH EYE OPENING OR MILD STIMULATION. SHE HAS MINIMAL RESPONSE OF 0.5 SECONDS OF MODERATE VOLTAGE 3 HZ ACTIVITY WITH NOXIOUS STIMULATION OF THE EXTREMITIES. NAMBEX 5MG WAS GIVEN TO SUPPRESS MUSCLE ACTIVITY. THERE ARE NO FOCAL OR LATERALIZING FEATURES. NO EPILEPTIFORM ACTIVITY APPEARS. SLEEP DID NOT OCCUR. HYPERVENTILATION WAS NOT PERFORMED. PHOTIC STIMULATION WAS NOT PERFORMED. IMPRESSION: THIS IS A SEVERELY ABNORMAL ROUTINE EEG DUE TO A MARKEDLY SLOW BACKGROUND AND POORLY REACTIVE BACKGROUND. THERE ARE EPISODES OF LOW TO MODERATE VOTLAGE 3-4 HZ SLOW WAVE ACTIVITY SEPERATED BY 1-2 SECONDS OF GENERALIZED VOLTAGE ATTENUATION. THESE FINDINGS INDICATE THE PRESENCE OF A SEVERE DIFFUSE DISTURBANCE IN CEREBRAL FUNCTION ON A HYPOXIC/ ISCHEMIC BASIS. IN THE ABSENCE OF SEVERE HYPOTHERMIA OR DEEP SEDATING MEDICATIONS, THESE FINDINGS INDICATE A VERY POOR PROGNOSIS FOR RECOVERY.
== END 2019-12-28 16:29 | disposition hospice, inpatient (51) | DRG 208 ==
LOC: ER 19:58 → ERHOLD 21:59 → 3RD-ICU 12-27 00:15
PROVIDERS: ADMIT Internal Medicine; ATTEND Family Medicine
PROC: 5A1935Z Respiratory Ventilation, Less than 24 Consecutive Hours (ICD-10-PCS; principal; 2019-12-26)
PROC: 0BH17EZ Insertion of Endotracheal Airway into Trachea, Via Natural or Artificial Opening (ICD-10-PCS; 2019-12-26)
PROC: 06HY33Z Insertion of Infusion Device into Lower Vein, Percutaneous Approach (ICD-10-PCS; 2019-12-26)
PROC: 30233N1 Transfusion of Nonautologous Red Blood Cells into Peripheral Vein, Percutaneous Approach (ICD-10-PCS; 2019-12-27)
DX: J69.0 Pneumonitis due to inhalation of food and vomit (principal); R57.0 Cardiogenic shock; J96.01 Acute respiratory failure with hypoxia; I46.8 Cardiac arrest due to other underlying condition; R57.8 Other shock; S22.49XA Multiple fractures of ribs, unspecified side, initial encounter for closed fracture; E87.2 Acidosis; J44.1 Chronic obstructive pulmonary disease with (acute) exacerbation; N17.9 Acute kidney failure, unspecified; I74.9 Embolism and thrombosis of unspecified artery; Z66 Do not resuscitate; Z88.5 Allergy status to narcotic agent; Z79.01 Long term (current) use of anticoagulants; Z79.82 Long term (current) use of aspirin; Z79.890 Hormone replacement therapy; Z79.899 Other long term (current) drug therapy; E03.9 Hypothyroidism, unspecified; E87.5 Hyperkalemia; D64.9 Anemia, unspecified; Z86.73 Personal history of transient ischemic attack (TIA), and cerebral infarction without residual deficits; F03.90 Unspecified dementia, unspecified severity, without behavioral disturbance, psychotic disturbance, mood disturbance, and anxiety; Z11.59 Encounter for screening for other viral diseases; T68.XXXA Hypothermia, initial encounter; E16.2 Hypoglycemia, unspecified; S06.890A Other specified intracranial injury without loss of consciousness, initial encounter; I48.91 Unspecified atrial fibrillation
CPT/HCPCS: 31500; 36415; 51702; 70450; 71045; 71250; 74176; 80048; 80053; 80076; 82150; 82550; 82553; 82805; 82947; 83605; 83690; 83735; 83880; 84100; 84145; 84439; 84443; 84484; 85025; 85610; 85730; 86850; 86900; 86901; 87040; 87324; 87449; 92950; 93005; 94002; 94003; 95816; 96374; 96375; 99291; C9113; J0171; J0610; J0692; J1200; J1720; J2543; J3370; J7030; P9016; U0002